=== PATIENT | female | born 1950 | race Caucasian/White ===

== ENCOUNTER 2023-05-23 01:45 | Emergency (ER) | payer MEDICARE, OTHER, SELFPAY ==
[2023-05-23 01:52] VITALS: BP 159/80
[2023-05-23 02:33] LABS: % Basophils 0.7 % (0-2); % Eosinophils 1.4 % (0-6); % Immature Granulocytes 0.3 % (0-0.5); % Lymphocytes 24.5 % (20.5-51.1); % Monocytes 10.4 % (1.7-9.3); % Neutrophils 62.7 % (42.2-75.2); Absolute Basophils 0.1 10^3/uL (0-0.2); Absolute Eosinophils 0.2 10^3/uL (0-0.7); Absolute Lymphocytes 2.9 10^3/uL (1.2-3.4); Absolute Monocytes 1.2 10^3/uL (0.1-0.6); Absolute Neutrophils 7.4 10^3/uL (1.4-6.5); Hematocrit 32.3 % (37.0-47.0); Hemoglobin 10.6 g/dL (12.0-16.0); Mean Corp Hgb Conc. 32.8 g/dL (33.0-37.0); Mean Corpuscular Hgb 23.5 pg (27.0-31.0); Mean Corpuscular Volume 71.5 fL (81.0-99.0); Mean Platelet Volume 8.8 fL (7.4-10.4); Nucleated Red Blood Cells % 0 %; Platelet Count 375 10^3/uL (130-400); Red Blood Cell Count 4.52 10^6/uL (4.20-5.40); Red Cell Dist. Width 17.2 % (11.5-14.5); White Blood Cell Count 11.8 10^3/uL (4.8-10.8)
[2023-05-23 03:02] LABS: ALT (SGPT) 25 U/L (0-35); AST (SGOT) 36 U/L (14-36); Albumin 4.1 g/dl (3.5-5.0); Alkaline Phosphatase 96 U/L (38-126); Blood Urea Nitrogen 25 mg/dl (7-17); Calcium 10.1 mg/dl (8.4-10.2); Carbon Dioxide 28 mmol/L (22-30); Chloride 96 mmol/L (98-107); Glucose 97 mg/dl (70-99); Potassium 3.5 mmol/L (3.5-5.1); Sodium 136 mmol/L (135-145); Total Bilirubin 0.5 mg/dl (0.2-1.3); Total Protein 6.8 g/dl (6.3-8.2); eGFR > 60.00
[2023-05-23 03:07] LABS: NT-proBNP 574 pg/ml; Troponin I < 0.012 ng/ml
[2023-05-23 04:54] VITALS: BP 127/68
[2023-05-23 05:00] VITALS: BP 116/62
--- NOTE | 2023-05-23 05:20 | ED.GENMED ---
History of Present Illness
General
Chief Complaint: Heart Rate Problem
Source: patient
Exam Limitations: none
Time Seen by Provider: 05/23/23 05:11
Nursing documentation reviewed up to this point in time: agreed with
Travel History
Have you had any contact with someone who has COVID-19?: No
Do you have any symptoms of coronavirus? Fever > 100 degrees, chills, cough, shortness of breath, sore throat, loss of taste or smell, muscle aches, or headache?: No
History of Present Illness
History of Present Illness:
This a pleasant 73-year-old female that presents with a brief episode of atrial fibrillation that occurred 45 minutes prior to arrival. She states that for about 10 minutes, she had heart rate in the 130s, consistent with atrial fibrillation. She
did have chest discomfort at that time but that has improved. Patient has had paroxysmal atrial fibrillation for years and has been maintained on Xarelto by Dr. White. She has not missed a dose. She states that she has had similar paroxysmal
atrial fibrillation in the past without issue. Denies fever, chills, current chest pain, or shortness of breath. Does report bilateral lower edema, which is being followed by her family doctor. She is also followed by [facility]. She
has a recent history of iron deficiency anemia. She is due to get infusions in about a week's time. Her family doctor stated that if the swelling did not come down she will get lower extremity ultrasounds.
Vital signs are stable. Patient not hypoxic
Nursing note reviewed. I agree with nursing documentation up to this point in time.
Home Meds and allergies reviewed.
NUMBER AND COMPLEXITY OF PROBLEMS ADDRESSED AT THE ENCOUNTER
� Chronic conditions affecting care:
� Acute Exacerbation and/or Progression of Chronic Illness:
� Differential Diagnosis includes:
AMOUNT AND/OR COMPLEXITY OF DATA TO BE REVIEWED AND ANALYZED
I performed an independent evaluation of the following and my interpretation is:
EKG: EKG shows atrial paced rhythm rate of 72 consistent with sinus rhythm. 'Previous EKG dated September 15, 2022, similar morphology.
CT:
X-rays:
Ultrasound:
Laboratory Studies:
Other:
Review of other/old records:
Clinical information was obtained by an independent historian:
Prescriptions/Medications Considered but not given:
Further testing considered but not performed:
RISK OF COMPLICATIONS AND/OR MORBIDITY OR MORTALITY OF PATIENT MANAGEMENT
Social determinants of health affecting care: Good Social Support
Discussion with other providers:
Escalation of care including admission/observation vs risk of discharge considered:
CRITICAL CARE NOTE:
Total Time (exclusive of procedures):
Update:
Past History
Past History
ED Past Medical History: Arrthythmia (Paroxysmal Atrial fibrillation), GERD, HTN, Hypercholesterolemia, NIDDM, Psychiatric (Panic attacks) and Other (Migraine headaches, fibromyalgia, polymyalgia rheumatica)
ED Past Surgical History: Cardiac (Cardiac catheterization May 2013 showing mild luminal irregularities.), , Orthopedic (Carpal tunnel release right hand. Neurostimulator in spine) and Other (Implanted stimulator)
Social History
Tobacco: Non-smoker
Alcohol: None
Drug: Other (THC lotion)
Personal:
Living: with family
Employment: Retired
Family History
Family History: Hypertension and Cancer (Breast cancer)
Phy Exam
General Physical Exam
General Presentation: well appearing and no apparent distress
General Skin: warm and dry
General Habitus: normal
General Mental: alert
General Hydration: appears well hydrated
ENT Exam
ENT Exam: EOMI, pharynx normal, neck supple and normocephalic
Eye Exam
Eye Exam: PERRL, cornea clear and conjunctiva normal
Cardiovascular Exam
Cardiovascular Exam: regular rate/rhythm, no edema, no murmur and normal peripheral pulses
Pulmonary Exam
Pulmonary Exam: lungs clear, no respiratory distress, no rales, no crackles, no rhonchi, no stridor, no wheezing and no cough
Gastrointestinal Exam
Gastrointestinal Exam: normal bowel sounds, non tender, soft, no organomegaly, no pulsatile mass and non distended
Neurological Exam
Neurological Exam: alert, oriented x3, no motor deficits and speech normal
Musculoskeletal Exam
Musculoskeletal Exam: full ROM and no edema
Skin Exam
Skin Exam: normal color, warm/dry, no rash and no petechia
Psychiatric Exam
Psychiatric Exam: normal mood/affect
Course
Orders/Labs/Results
Orders:
Orders
05/23/23 01:59
Electrocardiogram (*1) Urgent
Reason for Study: Other
Other Reason for Exam: Respiratory Distress
EKG- Treatment ONCE
O2 Therapy [RESP] Urgent
Titrate/Wean O2 to maintain O2 sat greater than (%): 93
Special Instructions: TO MAINTAIN CONTINUOUS O2 SATS >/= 93%
05/23/23 02:25
Complete Blood Count/With Diff Urgent
Comprehensive Metabolic Panel Urgent
NT-proBNP Urgent
Troponin I Urgent
05/23/23 05:19
US Legs, Bilateral [US Periph Venous LOWER Ext Jae] Urgent
Comment:
Reason For Exam: jae swelling
Abnormal Lab Results
05/23/23
02:25
WBC 11.8 H 10^3/uL
(4.8-10.8)
Hgb 10.6 L g/dL
(12.0-16.0)
Hct 32.3 L %
(37.0-47.0)
MCV 71.5 L fL
(81.0-99.0)
MCH 23.5 L pg
(27.0-31.0)
MCHC 32.8 L g/dL
(33.0-37.0)
RDW 17.2 H %
(11.5-14.5)
Absolute Neuts (auto) 7.4 H 10^3/uL
(1.4-6.5)
Absolute Monos (auto) 1.2 H 10^3/uL
(0.1-0.6)
Monocytes % 10.4 H %
(1.7-9.3)
Chloride 96 L mmol/L
(98-107)
BUN 25 H mg/dl
(7-17)
05/23/23 02:25
05/23/23 02:25
Vital Signs
Initial and Last Documented VS:
Initial Vital Signs
Temp Pulse Resp BP Pulse Ox
98.1 F 71 16 159/80 100
05/23/23 01:52 05/23/23 01:52 05/23/23 01:52 05/23/23 01:52 05/23/23 01:52
Last Documented Vital Signs
Temp Pulse Resp BP Pulse Ox
98.1 F 60 14 116/62 99
05/23/23 01:52 05/23/23 05:15 05/23/23 05:15 05/23/23 05:00 05/23/23 05:15
*Critical Care Note
Total Time (30-74mins, 75-104mins- exclusive of procedures): Not Applicable
ED Attending Note
-
Portions of this chart may have been created with voice recognition software.� Occasional wrong word or��sound alike� substitutions may have occurred due to the inherent limitations of voice recognition software.
Discharge Plan
Departure
Patient Disposition: Home (Routine Discharge)
Date of Disposition: 05/23/23
Time of Disposition: 05:54
Patient with high blood pressure during this ER visit?: No
Condition: Good
Discharge Problem:
Atrial fibrillation, Leg edema
Instructions: Atrial Fibrillation (DC), Dependent Edema (DC)
Prescriptions:
No Action
paroxetine HCl 30 MG tablet
30 mg PO DAILY
metformin 500 MG tablet
500 mg PO DAILY
atenolol-chlorthalidone [Tenoretic 50] 50 MG/25 MG tablet
0.5 tab PO DAILY
jdajhrwnde-ptvbugcxcpjox-wjvn 1 TAB tablet
1 tab PO Q6HPRN PRN (Reason: MIGRAINES)
duloxetine 60 MG capsule,delayed release(DR/EC)
60 mg PO DAILY
esomeprazole magnesium [Nexium] 40 MG capsule,delayed release(DR/EC)
40 mg PO DAILY
Folbic RF 1 EACH tablet
1 ea PO DAILY
fluticasone propion-salmeterol [Advair Diskus] 1 EACH blister with device
1 puff inhalation BID
Vitamin D3
1 tab PO SA
Rx Instructions:
30 k IU
spironolactone 25 MG tablet
25 mg PO DAILY Qty: 0 0RF
Xarelto 20 MG tablet
20 mg PO QPM Qty: 0 0RF
rosuvastatin 40 mg Tablet
40 mg PO QPM
Pepcid Complete 10-800-165 mg Tablet,Chewable
1 tab PO HS
benzonatate [Tessalon Perles] 100 mg Capsule
100 mg PO PRN PRN (Reason: cough)
fluticasone propion-salmeterol [Advair Diskus] 500-50 mcg/dose Blister With Device
1 inh INHALATION Q12H
Referrals:
Cecil Lerma Jr., DO [Family Provider] -
Activity Restrictions/Additional Instructions:
It was a pleasure meeting you and taking part in your care. We hope for your continued healing and wellness.
Please read discharge instructions in their entirety. However, they are for general education and may not describe your exact diagnosis at discharge. Information on your ER visit and medical conditions were discussed with you along with appropriate
follow up information...
If indicated, please take your medications as instructed and indicated on discharge paperwork.
Please schedule a follow up appointment as directed. Call to schedule an appointment
Please return to the emergency department with ANY change in, persisting, or worsening of symptoms. If any of your symptoms do not improve, or persist, or become more severe within 6-12 hours, please return to the emergency department for further
care.
Please return to the emergency department if you develop a headache, neck pain/stiffness, fever greater than 100.4F, chest pain, shortness of breath, persistent nausea, vomiting, slurred speech, difficulty walking, numbness/tingling, weakness, signs
of infection or any other symptoms that are worrisome to you.
If you have any questions or concerns please do not hesitate to call the Hospital at or E-mail me directly at [email or web address]
Interventions
Interventions:
*Risk Screen - Suicide Last Done: 05/23/23 05:12
*General Assessment Last Done: 05/23/23 05:12
*Neglect/Abuse Screening Last Done: 05/23/23 05:12
ED- Fall Risk Assessment Last Done: 05/23/23 05:12
ED- Cardiac Assessment Last Done: 05/23/23 05:12
ED- Pulmonary Assessment Last Done: 05/23/23 05:12
== END 2023-05-23 06:33 | disposition home or self-care (01) ==
LOC: EMR 01:45
PROVIDERS: EMERGENCY PHYSICIAN Student in an Organized Health Care Education/Training Program; FAMILY PHYSICIAN Family Medicine
DX: I48.0 Paroxysmal atrial fibrillation (principal); R60.0 Localized edema; R07.89 Other chest pain; D50.9 Iron deficiency anemia, unspecified; I10 Essential (primary) hypertension; K21.9 Gastro-esophageal reflux disease without esophagitis; E78.00 Pure hypercholesterolemia, unspecified; E11.9 Type 2 diabetes mellitus without complications; F41.0 Panic disorder [episodic paroxysmal anxiety]; M35.3 Polymyalgia rheumatica; M79.7 Fibromyalgia; Z79.01 Long term (current) use of anticoagulants; Z88.0 Allergy status to penicillin; Z88.2 Allergy status to sulfonamides; Z91.048 Other nonmedicinal substance allergy status
CPT/HCPCS: 99284; 80053; 83880; 84484; 85025; 93005; 93970

== ENCOUNTER 2023-06-01 06:51 | Emergency (ER) | payer MEDICARE, OTHER, SELFPAY ==
[2023-06-01 06:53] VITALS: BP 146/85
--- NOTE | 2023-06-01 07:38 | ED.GENMED ---
History of Present Illness
General
Chief Complaint: Breathing Problem
Source: patient
Exam Limitations: none
Time Seen by Provider: 06/01/23 07:04
Nursing documentation reviewed up to this point in time: agreed with
Travel History
Have you had any contact with someone who has COVID-19?: No
Do you have any symptoms of coronavirus? Fever > 100 degrees, chills, cough, shortness of breath, sore throat, loss of taste or smell, muscle aches, or headache?: Yes
Symptoms:: see triage note
History of Present Illness
History of Present Illness:
73-year-old female with past medical history of asthma, paroxysmal A-fib diabetes presenting to the emergency department today for concerns of ongoing cough over the past 2 weeks treated with doxycycline by the primary care doctor last week has
noticed some wheezing over the past 2 nights. She has been using her nebulizer at home without relief. Denies any recent steroid use for asthma does not use any daily inhalers for this. Denies any specific chest pain nausea vomiting or fevers.
Past History
Past History
ED Past Medical History: Arrthythmia (Paroxysmal Atrial fibrillation), GERD, HTN, Hypercholesterolemia, NIDDM, Psychiatric (Panic attacks) and Other (Migraine headaches, fibromyalgia, polymyalgia rheumatica)
ED Past Surgical History: Cardiac (Cardiac catheterization May 2013 showing mild luminal irregularities.), , Orthopedic (Carpal tunnel release right hand. Neurostimulator in spine) and Other (Implanted stimulator)
Social History
Tobacco: Non-smoker
Alcohol: None
Drug: Other (THC lotion)
Personal:
Living: with family
Employment: Retired
Family History
Family History: Hypertension and Cancer (Breast cancer)
Review of Systems
Review of Systems
Allergies reviewed?: Yes
All Other Systems: ROS reviewed and negative except as documented in HPI and ROS
Phy Exam
Physical Exam
Physical Exam:
GENERAL: Alert , in no apparent distress
EYE: pupils equal and reactive
NECK: Supple, no significant adenopathy.
ENT: o/p clr, mmm.
CARDIAC: Regular rate and rhythm .
LUNGS: Diffuse expiratory wheezing. Speaking full sentences no respiratory distress
NEUROLOGICAL: Alert and oriented, no focal neuro deficits
SKIN: Warm and dry, skin intact.
MUSCULOSKELETAL: No edema, well perfused.
PSYCH: Normal and appropriate interaction.
Scores
Heart Failure Risk
Heart Failure Risk Score: Not Applicable
Course
Orders/Labs/Results
Orders:
Orders
06/01/23 07:26
Dexamethasone Pf [Decadron] 10 mg PO NOW STA
Ipratropium/Albuterol Sulfate [Duoneb] 3 ml INHALATION R NOW ONE
06/01/23 07:27
Electrocardiogram (*1) Stat
Reason for Study: Other
Other Reason for Exam: pneumonia
EKG- Treatment ONCE
CR Chest - 2 Views Urgent
Comment:
Reason For Exam: cough
06/01/23 07:50
Basic Metabolic Panel Urgent
Complete Blood Count/With Diff Urgent
Abnormal Lab Results
06/01/23
07:50
Hgb 10.2 L g/dL
(12.0-16.0)
Hct 31.8 L %
(37.0-47.0)
MCV 72.9 L fL
(81.0-99.0)
MCH 23.4 L pg
(27.0-31.0)
MCHC 32.1 L g/dL
(33.0-37.0)
RDW 17.4 H %
(11.5-14.5)
Abs Immat Gran (auto) 0.1 H 10^3/uL
(0-0.05)
Absolute Neuts (auto) 8.1 H 10^3/uL
(1.4-6.5)
Absolute Monos (auto) 0.7 H 10^3/uL
(0.1-0.6)
Neutrophils % 75.3 H %
(42.2-75.2)
Lymphocytes % 17.3 L %
(20.5-51.1)
Potassium 3.4 L mmol/L
(3.5-5.1)
BUN 36 H mg/dl
(7-17)
Glucose 124 H mg/dl
(70-99)
06/01/23 07:50
06/01/23 07:50
Vital Signs
Initial and Last Documented VS:
Initial Vital Signs
Temp Pulse Resp BP Pulse Ox
97.8 F 73 20 146/85 99
06/01/23 06:53 06/01/23 06:53 06/01/23 06:53 06/01/23 06:53 06/01/23 06:53
Last Documented Vital Signs
Temp Pulse Resp BP Pulse Ox
97.8 F 66 16 130/68 100
06/01/23 06:53 06/01/23 08:00 06/01/23 08:00 06/01/23 09:45 06/01/23 09:45
MDM/Problems Addressed
MDM/Problems Addressed:
73-year-old female presenting to the emergency department today with concerns of coughing over the past 2 weeks and development of wheezing over the past 2 days. Has been taking a home nebulizer without relief. Was treated with an antibiotic last
week for 'bronchitis'. Upon arrival here vital signs are normal. Patient in no distress speaking full sentences. There was diffuse expiratory wheezing but otherwise good air movement. Patient was given steroid as well as nebulizer with plans for
reassessment. Patient with significant improvement after steroid and nebulizer treatment. Able to ambulate with 94% or above pulse ox stable for outpatient management return precautions given. Remainder of ER workup without emergent findings.
*Critical Care Note
Total Time (30-74mins, 75-104mins- exclusive of procedures): Not Applicable
ED Attending Note
-
Portions of this chart may have been created with voice recognition software.� Occasional wrong word or��sound alike� substitutions may have occurred due to the inherent limitations of voice recognition software.
Discharge Plan
Departure
Patient Disposition: Home (Routine Discharge)
Date of Disposition: 06/01/23
Time of Disposition: 10:48
Patient with high blood pressure during this ER visit?: No
Condition: Good
Covid-19: Not Applicable
Discharge Problem:
Asthma exacerbation
Instructions: Asthma, Adult (DC)
Prescriptions:
New
prednisone 20 mg tablet
40 mg PO DAILY 4 Days Qty: 8 0RF
No Action
paroxetine HCl 30 MG tablet
30 mg PO DAILY
metformin 500 MG tablet
500 mg PO DAILY
atenolol-chlorthalidone [Tenoretic 50] 50 MG/25 MG tablet
0.5 tab PO DAILY
kixnlqfiqk-ekgguxazenemu-fnjq 1 TAB tablet
1 tab PO Q6HPRN PRN (Reason: MIGRAINES)
duloxetine 60 MG capsule,delayed release(DR/EC)
60 mg PO DAILY
esomeprazole magnesium [Nexium] 40 MG capsule,delayed release(DR/EC)
40 mg PO DAILY
Folbic RF 1 EACH tablet
1 ea PO DAILY
fluticasone propion-salmeterol [Advair Diskus] 1 EACH blister with device
1 puff inhalation BID
Vitamin D3
1 tab PO SA
Rx Instructions:
30 k IU
spironolactone 25 MG tablet
25 mg PO DAILY Qty: 0 0RF
Xarelto 20 MG tablet
20 mg PO QPM Qty: 0 0RF
rosuvastatin 40 mg Tablet
40 mg PO QPM
Pepcid Complete 10-800-165 mg Tablet,Chewable
1 tab PO HS
benzonatate [Tessalon Perles] 100 mg Capsule
100 mg PO PRN PRN (Reason: cough)
fluticasone propion-salmeterol [Advair Diskus] 500-50 mcg/dose Blister With Device
1 inh INHALATION Q12H
Referrals:
Cecil Lerma Jr., DO [Family Provider] -
Activity Restrictions/Additional Instructions:
You came the emergency department today with concerns of shortness of breath. You are found to have any asthma exacerbation. Please take prednisone 40 mg once daily for the next 4 days and follow-up closely with your primary care doctor. Please
use your nebulizer or inhaler as needed over the next few days as symptoms are hopefully improving. Return to the emergency department for any worsening, new or concerning symptoms.
Interventions
Interventions:
*Risk Screen - Suicide Last Done: 06/01/23 07:02
*General Assessment Last Done: 06/01/23 07:00
*Neglect/Abuse Screening Last Done: 06/01/23 07:02
ED- Fall Risk Assessment Last Done: 06/01/23 07:59
*ED COVID-19 Vaccine History Last Done: 06/01/23 07:00
ED- Cardiac Assessment Last Done: 06/01/23 07:50
ED- Pulmonary Assessment Last Done: 06/01/23 07:50
[2023-06-01 07:43] VITALS: BMI 37.5
[2023-06-01] MEDS: DECADRON 10 MG PO (07:52)
[2023-06-01] MEDS: DUONEB 3 ML INHALATION (07:52)
[2023-06-01 07:57] VITALS: BP 131/74
[2023-06-01 08:00] VITALS: BP 131/69
[2023-06-01 08:11] LABS: % Basophils 0.5 % (0-2); % Eosinophils 0.2 % (0-6); % Immature Granulocytes 0.5 % (0-0.5); % Lymphocytes 17.3 % (20.5-51.1); % Monocytes 6.2 % (1.7-9.3); % Neutrophils 75.3 % (42.2-75.2); Absolute Basophils 0.1 10^3/uL (0-0.2); Absolute Immature Granulocytes 0.1 10^3/uL (0-0.05); Absolute Lymphocytes 1.9 10^3/uL (1.2-3.4); Absolute Monocytes 0.7 10^3/uL (0.1-0.6); Absolute Neutrophils 8.1 10^3/uL (1.4-6.5); Hematocrit 31.8 % (37.0-47.0); Hemoglobin 10.2 g/dL (12.0-16.0); Mean Corp Hgb Conc. 32.1 g/dL (33.0-37.0); Mean Corpuscular Hgb 23.4 pg (27.0-31.0); Mean Corpuscular Volume 72.9 fL (81.0-99.0); Mean Platelet Volume 8.8 fL (7.4-10.4); Nucleated Red Blood Cells % 0 %; Platelet Count 340 10^3/uL (130-400); Red Blood Cell Count 4.36 10^6/uL (4.20-5.40); Red Cell Dist. Width 17.4 % (11.5-14.5); White Blood Cell Count 10.8 10^3/uL (4.8-10.8)
[2023-06-01 08:24] LABS: Blood Urea Nitrogen 36 mg/dl (7-17); Calcium 9.5 mg/dl (8.4-10.2); Carbon Dioxide 28 mmol/L (22-30); Chloride 100 mmol/L (98-107); Estimated Creatinine Clearance 61 ml/min; Glucose 124 mg/dl (70-99); Potassium 3.4 mmol/L (3.5-5.1); Sodium 137 mmol/L (135-145); eGFR > 60.00
[2023-06-01 09:45] VITALS: BP 130/68
== END 2023-06-01 11:12 | disposition home or self-care (01) ==
LOC: EMR 06:51
PROVIDERS: Physician Assistant; EMERGENCY PHYSICIAN Emergency Medicine; FAMILY PHYSICIAN Family Medicine
DX: J45.901 Unspecified asthma with (acute) exacerbation (principal); I48.0 Paroxysmal atrial fibrillation; E11.9 Type 2 diabetes mellitus without complications; I10 Essential (primary) hypertension; E78.00 Pure hypercholesterolemia, unspecified; K21.9 Gastro-esophageal reflux disease without esophagitis; M35.3 Polymyalgia rheumatica; M79.7 Fibromyalgia; Z80.3 Family history of malignant neoplasm of breast; Z82.49 Family history of ischemic heart disease and other diseases of the circulatory system
CPT/HCPCS: 99283; 94640; 71046; 80048; 85025; 93005

== ENCOUNTER → 2023-06-07 11:03 | Outpatient (REF) | payer MEDICARE, OTHER, SELFPAY | LOC: RAD 11:03 | PROVIDERS: ATTENDING PHYSICIAN Nurse Practitioner Adult Health; FAMILY PHYSICIAN Family Medicine | DX: R05.1 Acute cough (principal) | CPT/HCPCS: 71046 ==

== ENCOUNTER 2023-06-12 03:07 | Emergency (ER) | payer MEDICARE, OTHER, SELFPAY ==
[2023-06-12 03:12] VITALS: BP 142/85
[2023-06-12 04:00] VITALS: BP 124/66
[2023-06-12 05:00] VITALS: BP 123/68
[2023-06-12 05:34] LABS: COVID-19 Antigen Negative (Negative)
--- NOTE | 2023-06-12 05:48 | ED.GENMED ---
History of Present Illness
General
Chief Complaint: Throat Problem
Source: patient and previous hospital records (ED visit June 01 for asthma exacerbation as well as ED visit May 23 for A-fib with spontaneous conversion.)
Exam Limitations: none
Time Seen by Provider: 06/12/23 04:42
Nursing documentation reviewed up to this point in time: agreed with
Travel History
Have you had any contact with someone who has COVID-19?: No
Do you have any symptoms of coronavirus? Fever > 100 degrees, chills, cough, shortness of breath, sore throat, loss of taste or smell, muscle aches, or headache?: No
History of Present Illness
History of Present Illness:
This is a 73-year-old woman who has history of paroxysmal atrial fibrillation chronically maintained on Xarelto, history of asthma with recent exacerbation that began mid April, initially treated with a course of doxycycline and then 2 rounds of
oral steroids which she is currently completing. She notes complete resolution of cough and asthma symptoms over the past week.
She also has history of iron deficiency anemia and had an IV iron infusion [facility].
Yesterday afternoon she developed mild irritation posterior throat as well as mild muffling of her ears and felt that she may be 'coming down with a cold'
Symptoms have persisted tonight without cough nor fever, no rhinorrhea. She was concerned for possible adverse reaction to IV iron. She denies itch, denies rash, no cough nor shortness of breath. She had no difficulty swallowing. Appetite has
been good. No nausea nor vomiting, no diarrhea or constipation.
Past History
Past History
ED Past Medical History: Arrthythmia (Paroxysmal Atrial fibrillation), GERD, HTN, Hypercholesterolemia, NIDDM, Psychiatric (Panic attacks) and Other (Migraine headaches, fibromyalgia, polymyalgia rheumatica; allergic rhinitis)
ED Past Surgical History: Cardiac (Cardiac catheterization May 2013 showing mild luminal irregularities.), , Orthopedic (Carpal tunnel release right hand. Neurostimulator in spine) and Other (Implanted stimulator)
Social History
Tobacco: Non-smoker
Alcohol: None
Drug: Other (THC lotion)
Personal:
Living: with family
Employment: Retired
Family History
Family History: Hypertension and Cancer (Breast cancer)
Phy Exam
Physical Exam
Physical Exam:
GENERAL: 73-year-old woman appears her stated age, awake and alert, pleasant, appears in no acute distress. Speech is clear. Respirations are easy and nonlabored.
EYE: anicteric
NECK: Supple, nontender, no meningismus, no significant adenopathy. No JVD.
ENT: posterior pharynx is without injection or edema nor exudate, scant clear postnasal drip is noted, oral mucosa is moist. Tongue is midline without edema. TM clear b/l, nares have mildly boggy pale blue turbinates.
CARDIAC: Regular rate and rhythm. no murmur.
LUNGS: Clear breath sounds bilaterally, no acute respiratory distress, no wheezes/rales/rhonchi
ABDOMEN: Soft, nondistended, without focal tenderness, normoactive BS.
NEUROLOGICAL: Alert and oriented x3, no focal neuro deficits.
SKIN: Warm and dry, normal color, skin intact. No rash.
MUSCULOSKELETAL: No C/C/E. peripheral pulses are full and equal b/l. No palpable tenderness.
PSYCH: Normal and appropriate interaction.
Course
Orders/Labs/Results
Orders:
Orders
06/12/23 04:54
COVID-19 Antigen Urgent
Source: Nasal Swab
Influenza A+B Rapid Molecular Urgent
ALICIA Source: Nasal Swab
Specimen Description:
Vital Signs
Initial and Last Documented VS:
Initial Vital Signs
Temp Pulse Resp BP Pulse Ox
98.5 F 66 20 142/85 100
06/12/23 03:12 06/12/23 03:12 06/12/23 03:12 06/12/23 03:12 06/12/23 03:12
Last Documented Vital Signs
Temp Pulse Resp BP Pulse Ox
98.5 F 58 20 124/66 100
06/12/23 03:12 06/12/23 05:02 06/12/23 03:12 06/12/23 04:00 06/12/23 03:12
MDM/Problems Addressed
Differential Diagnosis Includes:
Patient presents with mild acute pharyngitis since yesterday afternoon.
Exam remarkable for mild allergic rhinitis with scant clear postnasal drip otherwise posterior pharynx is clear. No evidence of acute allergic reaction and I do not suspect symptoms are adverse reaction to IV iron infusion 3 days ago.
She is afebrile, no adenopathy, lungs are clear to auscultation.
Symptoms began yesterday afternoon, not at nighttime thus acid reflux is much less likely.
With concern for potential early viral URI will check COVID and influenza but my overall suspicion for these entities is low.
Chronic conditions affecting care: Asthma
*Pulse Oximetry
Patient hypoxic: no
*Critical Care Note
Total Time (30-74mins, 75-104mins- exclusive of procedures): Not Applicable
Update Note
Update Note:
COVID and influenza testing are negative as expected.
Patient continues to appear well.
Mild acute pharyngitis I suspect is mild early viral URI versus allergic rhinitis.
Recommend supportive measures, staying well-hydrated, warm salt water gargles, humidifier or vaporizer at nighttime.
For allergic rhinitis recommend she resume her Astelin and Flonase nasal sprays.
Prompt follow-up with PCP for recheck.
ED Attending Note
-
Portions of this chart may have been created with voice recognition software.� Occasional wrong word or��sound alike� substitutions may have occurred due to the inherent limitations of voice recognition software.
Discharge Plan
Departure
Patient Disposition: Home (Routine Discharge)
Date of Disposition: 06/12/23
Time of Disposition: 05:48
Patient with high blood pressure during this ER visit?: No
Condition: Good
Discharge Problem:
Pharyngitis
Instructions: Sore Throat, Adult (DC)
Prescriptions:
No Action
paroxetine HCl 30 MG tablet
30 mg PO DAILY
metformin 500 MG tablet
500 mg PO DAILY
atenolol-chlorthalidone [Tenoretic 50] 50 MG/25 MG tablet
0.5 tab PO DAILY
ogabefgubk-eubqrqfjxjaop-uksb 1 TAB tablet
1 tab PO Q6HPRN PRN (Reason: MIGRAINES)
duloxetine 60 MG capsule,delayed release(DR/EC)
60 mg PO DAILY
esomeprazole magnesium [Nexium] 40 MG capsule,delayed release(DR/EC)
40 mg PO DAILY
Folbic RF 1 EACH tablet
1 ea PO DAILY
fluticasone propion-salmeterol [Advair Diskus] 1 EACH blister with device
1 puff inhalation BID
Vitamin D3
1 tab PO SA
Rx Instructions:
30 k IU
spironolactone 25 MG tablet
25 mg PO DAILY Qty: 0 0RF
Xarelto 20 MG tablet
20 mg PO QPM Qty: 0 0RF
rosuvastatin 40 mg Tablet
40 mg PO QPM
Pepcid Complete 10-800-165 mg Tablet,Chewable
1 tab PO HS
benzonatate [Tessalon Perles] 100 mg Capsule
100 mg PO PRN PRN (Reason: cough)
fluticasone propion-salmeterol [Advair Diskus] 500-50 mcg/dose Blister With Device
1 inh INHALATION Q12H
prednisone 20 mg tablet
40 mg PO DAILY 4 Days Qty: 8 0RF
Referrals:
Cecil Lerma Jr., DO [Family Provider] - Call in 1-3 days for appt
Interventions
Interventions:
*Risk Screen - Suicide Last Done: 06/12/23 03:12
*General Assessment Last Done: 06/12/23 03:12
*Neglect/Abuse Screening Last Done: 06/12/23 03:12
ED- Fall Risk Assessment Last Done: 06/12/23 03:33
*ED COVID-19 Vaccine History Last Done: 06/12/23 03:12
ED-EENT Assessment Last Done: 06/12/23 03:33
ED- Pulmonary Assessment Last Done: 06/12/23 03:33
== END 2023-06-12 05:57 | disposition home or self-care (01) ==
LOC: EMR 03:07
PROVIDERS: EMERGENCY PHYSICIAN Emergency Medicine; FAMILY PHYSICIAN Family Medicine
DX: J02.9 Acute pharyngitis, unspecified (principal); I48.0 Paroxysmal atrial fibrillation
CPT/HCPCS: 99283; 87502; 87811

== ENCOUNTER 2023-06-24 06:10 | Day surgery (SDC) | payer MEDICARE, OTHER, SELFPAY ==
[2023-06-24 08:16] VITALS: BMI 36.8
[2023-06-24 08:17] VITALS: BMI 36.8
[2023-06-24 08:32] VITALS: BP 150/80
[2023-06-24 08:39] LABS: Glucose - Point of Care 93 mg/dl (70-99)
--- NOTE | 2023-06-24 08:50 | PTCARENOTE ---
Patient states that she was supposed to have an upper endoscopy done as well as a colonoscopy. Patient states that he Doctor's office has been communicating with Dr. Aguilar's office to coordinate this. Notified [place] the GI RN to have her notify
Jeff before he speaks with patient at the bedside. Will monitor patient.
--- NOTE | 2023-06-24 09:25 | PTCARENOTE ---
Patient incontinent of a small amount of stool at 0915. Patient cleaned up and ambulated to the bathroom. Will monitor patient.
[2023-06-24 11:05] VITALS: BP 124/59
[2023-06-24 11:19] LABS: Glucose - Point of Care 91 mg/dl (70-99)
[2023-06-24 11:20] VITALS: BP 131/61
[2023-06-24 11:32] VITALS: BP 119/52
== END 2023-06-24 11:50 | disposition home or self-care (01) ==
LOC: SDS 06:10
PROVIDERS: ATTENDING PHYSICIAN Internal Medicine Gastroenterology
DX: Z12.11 Encounter for screening for malignant neoplasm of colon (principal); K63.89 Other specified diseases of intestine; K64.0 First degree hemorrhoids; K31.7 Polyp of stomach and duodenum; D50.9 Iron deficiency anemia, unspecified; Z86.010 Personal history of colon polyps; Z98.890 Other specified postprocedural states; Z09 Encounter for follow-up examination after completed treatment for conditions other than malignant neoplasm
CPT/HCPCS: 45385; 45380; 43235; 88305; 82962

== ENCOUNTER 2023-06-25 03:16 | Emergency (ER) | payer MEDICARE, OTHER, SELFPAY ==
[2023-06-25 03:17] VITALS: BP 122/74
[2023-06-25 03:37] VITALS: BP 114/58
[2023-06-25 04:05] LABS: % Basophils 0.7 % (0-2); % Eosinophils 2.1 % (0-6); % Immature Granulocytes 0.2 % (0-0.5); % Lymphocytes 29.2 % (20.5-51.1); % Monocytes 11.3 % (1.7-9.3); % Neutrophils 56.5 % (42.2-75.2); Absolute Basophils 0.1 10^3/uL (0-0.2); Absolute Eosinophils 0.2 10^3/uL (0-0.7); Absolute Lymphocytes 2.4 10^3/uL (1.2-3.4); Absolute Monocytes 0.9 10^3/uL (0.1-0.6); Absolute Neutrophils 4.6 10^3/uL (1.4-6.5); Hematocrit 35.9 % (37.0-47.0); Hemoglobin 11.9 g/dL (12.0-16.0); Mean Corp Hgb Conc. 33.1 g/dL (33.0-37.0); Mean Corpuscular Hgb 25.7 pg (27.0-31.0); Mean Corpuscular Volume 77.5 fL (81.0-99.0); Nucleated Red Blood Cells % 0 %; Platelet Count 236 10^3/uL (130-400); Red Blood Cell Count 4.63 10^6/uL (4.20-5.40); Red Cell Dist. Width 24.8 % (11.5-14.5); White Blood Cell Count 8.1 10^3/uL (4.8-10.8)
[2023-06-25 04:18] LABS: Albumin 3.7 g/dl (3.5-5.0); Carbon Dioxide 23 mmol/L (22-30)
[2023-06-25 04:22] VITALS: BP 99/55
[2023-06-25 04:27] LABS: ALT (SGPT) 28 U/L (0-35); AST (SGOT) 41 U/L (14-36); Alkaline Phosphatase 99 U/L (38-126); Blood Urea Nitrogen 15 mg/dl (7-17); Calcium 9.5 mg/dl (8.4-10.2); Chloride 103 mmol/L (98-107); Glucose 102 mg/dl (70-99); Potassium 3.1 mmol/L (3.5-5.1); Sodium 134 mmol/L (135-145); Total Bilirubin 0.5 mg/dl (0.2-1.3); Total Protein 6.6 g/dl (6.3-8.2); eGFR > 60.00
[2023-06-25 04:29] LABS: NT-proBNP 443 pg/ml; Troponin I < 0.012 ng/ml
[2023-06-25 04:49] LABS: TSH Reflex To Free T4 1.92 uIU/ml (0.47-4.68)
[2023-06-25 05:00] VITALS: BP 107/59
--- NOTE | 2023-06-25 05:05 | ED.GENMED ---
History of Present Illness
General
Chief Complaint: Heart Rate Problem
Source: patient
Time Seen by Provider: 06/25/23 03:50
Nursing documentation reviewed up to this point in time: agreed with
Travel History
Have you had any contact with someone who has COVID-19?: No
Do you have any symptoms of coronavirus? Fever > 100 degrees, chills, cough, shortness of breath, sore throat, loss of taste or smell, muscle aches, or headache?: No
History of Present Illness
History of Present Illness:
Pleasant 73-year-old female who presents with palpitations. She states that palpitations began this afternoon. Patient has a history of pulmonary emboli and is on a NOAC for anticoagulation. She had an upper endoscopy and colonoscopy today and
had to come off the NOAC for the duration of the surgery. She does state that the procedures went well today. Patient denies fever, chills, nausea and vomiting. Patient concerned that she is in atrial fibrillation. She states that she has many
of the same symptoms when she is in atrial fibrillation. Patient reports no other complaints at this time..
Past History
Past History
ED Past Medical History: Arrthythmia (Paroxysmal Atrial fibrillation), GERD, HTN, Hypercholesterolemia, NIDDM, Psychiatric (Panic attacks) and Other (Migraine headaches, fibromyalgia, polymyalgia rheumatica; allergic rhinitis)
ED Past Surgical History: Cardiac (Cardiac catheterization May 2013 showing mild luminal irregularities.), , Orthopedic (Carpal tunnel release right hand. Neurostimulator in spine) and Other (Implanted stimulator)
Social History
Tobacco: Non-smoker
Alcohol: None
Drug: Other (THC lotion)
Personal:
Living: with family
Employment: Retired
Family History
Family History: Hypertension and Cancer (Breast cancer)
Review of Systems
Review of Systems
Allergies reviewed?: Yes
All Other Systems: ROS reviewed and negative except as documented in HPI and ROS
Constitutional: Reports no symptoms
EENT: Reports no symptoms
Respiratory: Reports no symptoms
Cardiac: Reports chest pain and palpitations
ABD/GI: Reports no symptoms
: Reports no symptoms
Musculoskeletal: Reports no symptoms
Skin: Reports no symptoms
Neurological: Reports no symptoms
Endocrine: Reports no symptoms
Hematologic/Lymphatic: Reports no symptoms
Psychiatric: Reports anxiety
Phy Exam
General Physical Exam
General Presentation: well appearing and no apparent distress
General Skin: warm and dry
General Habitus: normal
General Mental: alert
General Hydration: appears well hydrated
ENT Exam
ENT Exam: EOMI, pharynx normal, neck supple and normocephalic
Eye Exam
Eye Exam: PERRL, cornea clear and conjunctiva normal
Cardiovascular Exam
Cardiovascular Exam: regular rate/rhythm, no edema, no murmur and normal peripheral pulses
Pulmonary Exam
Pulmonary Exam: lungs clear, no respiratory distress, no rales, no crackles, no rhonchi, no stridor, no wheezing and no cough
Gastrointestinal Exam
Gastrointestinal Exam: normal bowel sounds, non tender, soft, no organomegaly, no pulsatile mass and non distended
Neurological Exam
Neurological Exam: alert, oriented x3, no motor deficits and speech normal
Musculoskeletal Exam
Musculoskeletal Exam: full ROM and no edema
Skin Exam
Skin Exam: normal color, warm/dry, no rash and no petechia
Psychiatric Exam
Psychiatric Exam: normal mood/affect
Course
Orders/Labs/Results
Orders:
Orders
06/25/23 03:23
Electrocardiogram (*1) Urgent
Reason for Study: Atrial Fibrillation
EKG- Treatment ONCE
06/25/23 03:58
Complete Blood Count/With Diff Urgent
Comprehensive Metabolic Panel Urgent
NT-proBNP Urgent
TSH Reflex To Free T4 Urgent
Troponin I Urgent
06/25/23 04:46
DDimer [D-Dimer] Urgent
Abnormal Lab Results
06/25/23
03:58
Hgb 11.9 L g/dL
(12.0-16.0)
Hct 35.9 L %
(37.0-47.0)
MCV 77.5 L fL
(81.0-99.0)
MCH 25.7 L pg
(27.0-31.0)
RDW 24.8 H %
(11.5-14.5)
Absolute Monos (auto) 0.9 H 10^3/uL
(0.1-0.6)
Monocytes % 11.3 H %
(1.7-9.3)
Sodium 134 L mmol/L
(135-145)
Potassium 3.1 L mmol/L
(3.5-5.1)
Glucose 102 H mg/dl
(70-99)
AST 41 H U/L
(14-36)
06/25/23 03:58
06/25/23 03:58
Vital Signs
Initial and Last Documented VS:
Initial Vital Signs
Temp Pulse Resp BP Pulse Ox
98.1 F 67 18 122/74 99
06/25/23 03:17 06/25/23 03:17 06/25/23 03:17 06/25/23 03:17 06/25/23 03:17
Last Documented Vital Signs
Temp Pulse Resp BP Pulse Ox
98.1 F 58 19 107/59 99
06/25/23 03:17 06/25/23 05:30 06/25/23 05:30 06/25/23 05:00 06/25/23 05:30
*Critical Care Note
Total Time (30-74mins, 75-104mins- exclusive of procedures): Not Applicable
Update Note
Update Note:
EKG shows normal sinus rhythm rate of 63 with normal intervals, normal axis. No evidence of acute ischemia present.
ED Attending Note
-
Portions of this chart may have been created with voice recognition software.� Occasional wrong word or��sound alike� substitutions may have occurred due to the inherent limitations of voice recognition software.
Discharge Plan
Departure
Patient Disposition: Home (Routine Discharge)
Date of Disposition: 06/25/23
Time of Disposition: 05:45
Patient with high blood pressure during this ER visit?: No
Condition: Good
Discharge Problem:
Palpitations
Instructions: Palpitations (DC)
Prescriptions:
No Action
paroxetine HCl 30 MG tablet
30 mg PO DAILY
metformin 500 MG tablet
500 mg PO DAILY
atenolol-chlorthalidone [Tenoretic 50] 50 MG/25 MG tablet
0.5 tab PO DAILY
unjaxjuxdo-aphakkbwgbwfv-xftz 1 TAB tablet
1 tab PO Q6HPRN PRN (Reason: MIGRAINES)
duloxetine 60 MG capsule,delayed release(DR/EC)
60 mg PO DAILY
esomeprazole magnesium [Nexium] 40 MG capsule,delayed release(DR/EC)
40 mg PO DAILY
Folbic RF 1 EACH tablet
1 ea PO DAILY
fluticasone propion-salmeterol [Advair Diskus] 1 EACH blister with device
1 puff inhalation BID
Vitamin D3
1 tab PO SA
Rx Instructions:
30 k IU
spironolactone 25 MG tablet
25 mg PO DAILY Qty: 0 0RF
Xarelto 20 MG tablet
20 mg PO QPM Qty: 0 0RF
rosuvastatin 40 mg Tablet
40 mg PO QPM
Pepcid Complete 10-800-165 mg Tablet,Chewable
1 tab PO HS
benzonatate [Tessalon Perles] 100 mg Capsule
100 mg PO PRN PRN (Reason: cough)
fluticasone propion-salmeterol [Advair Diskus] 500-50 mcg/dose Blister With Device
1 inh INHALATION Q12H
Rx Instructions:
nebulizer
prednisone 20 mg tablet
40 mg PO DAILY 4 Days Qty: 8 0RF
Referrals:
Cecil Lerma Jr., DO [Family Provider] -
Activity Restrictions/Additional Instructions:
It was a pleasure meeting you and taking part in your care. We hope for your continued healing and wellness.
Please read discharge instructions in their entirety. However, they are for general education and may not describe your exact diagnosis at discharge. Information on your ER visit and medical conditions were discussed with you along with appropriate
follow up information...
If indicated, please take your medications as instructed and indicated on discharge paperwork.
Please schedule a follow up appointment as directed. Call to schedule an appointment
Please return to the emergency department with ANY change in, persisting, or worsening of symptoms. If any of your symptoms do not improve, or persist, or become more severe within 6-12 hours, please return to the emergency department for further
care.
Please return to the emergency department if you develop a headache, neck pain/stiffness, fever greater than 100.4F, chest pain, shortness of breath, persistent nausea, vomiting, slurred speech, difficulty walking, numbness/tingling, weakness, signs
of infection or any other symptoms that are worrisome to you.
If you have any questions or concerns please do not hesitate to call the Hospital at or E-mail me directly at [email or web address]
Interventions
Interventions:
*Risk Screen - Suicide Last Done: 06/25/23 03:17
*General Assessment Last Done: 06/25/23 03:17
*Neglect/Abuse Screening Last Done: 06/25/23 03:17
ED- Fall Risk Assessment Last Done: 06/25/23 03:17
*ED COVID-19 Vaccine History Last Done: 06/25/23 03:17
*Nursing Disposition Last Done: 06/25/23 05:59
ED- Cardiac Assessment Last Done: 06/25/23 04:05
ED- Pulmonary Assessment Last Done: 06/25/23 04:05
Discharge Date and Time
Discharge Date/Time: 06/25/23 06:08
[2023-06-25 05:41] LABS: D-Dimer 0.38 ug/mlFEU (0.00-0.50)
== END 2023-06-25 06:08 | disposition home or self-care (01) ==
LOC: EMR 03:16
PROVIDERS: EMERGENCY PHYSICIAN Student in an Organized Health Care Education/Training Program; FAMILY PHYSICIAN Family Medicine
DX: R00.2 Palpitations (principal); R07.9 Chest pain, unspecified; Z86.711 Personal history of pulmonary embolism; Z79.01 Long term (current) use of anticoagulants
CPT/HCPCS: 99284; 80053; 83880; 84443; 84484; 85025; 85379; 93005

== ENCOUNTER → 2023-07-09 13:09 | Outpatient (REF) | payer MEDICARE, OTHER, SELFPAY | LOC: RAD 13:09 | PROVIDERS: ATTENDING PHYSICIAN Psychiatry & Neurology Neurology; FAMILY PHYSICIAN Family Medicine | DX: M53.3 Sacrococcygeal disorders, not elsewhere classified (principal); M25.551 Pain in right hip | CPT/HCPCS: 72202; 73502 ==

== ENCOUNTER → 2023-08-06 07:46 | Outpatient (REF) | payer MEDICARE, OTHER, SELFPAY | LOC: PAVMRI 07:46 | PROVIDERS: ATTENDING PHYSICIAN Orthopaedic Surgery Orthopaedic Surgery of the Spine; FAMILY PHYSICIAN Family Medicine | DX: M48.062 Spinal stenosis, lumbar region with neurogenic claudication (principal) | CPT/HCPCS: 72158; A9575 ==

== ENCOUNTER → 2023-08-06 13:43 | Outpatient (REF) | payer MEDICARE, OTHER, SELFPAY | LOC: HWRAD 13:43 | PROVIDERS: ATTENDING PHYSICIAN Family Medicine | DX: R60.9 Edema, unspecified (principal); M79.605 Pain in left leg | CPT/HCPCS: 93971 ==

== ENCOUNTER → 2023-08-29 13:01 | Outpatient (REF) | payer MEDICARE, OTHER, SELFPAY | LOC: HWRAD 13:01 | PROVIDERS: ATTENDING PHYSICIAN Obstetrics & Gynecology; FAMILY PHYSICIAN Family Medicine | DX: N39.0 Urinary tract infection, site not specified (principal) | CPT/HCPCS: 76770 ==

== ENCOUNTER → 2023-10-16 10:18 | Outpatient (REF) | payer MEDICARE, OTHER, SELFPAY | LOC: HWRAD 10:18 | PROVIDERS: ATTENDING PHYSICIAN Obstetrics & Gynecology Gynecologic Oncology; FAMILY PHYSICIAN Family Medicine | DX: D50.9 Iron deficiency anemia, unspecified (principal); Z15.02 Genetic susceptibility to malignant neoplasm of ovary | CPT/HCPCS: 74177; Q9967 ==

== ENCOUNTER → 2023-11-06 19:02 | Outpatient (REF) | payer MEDICARE, OTHER, SELFPAY ==
[2023-11-06 19:29] LABS: Urine Albumin Trace (Neg - Trace); Urine Bilirubin Negative (Negative); Urine Character Clear (Clear); Urine Color Yellow; Urine Glucose Negative (Negative); Urine Ketone Negative (Negative); Urine Leukocyte Negative (Negative); Urine Nitrite Negative (Negative); Urine Occult Blood 2+ (Negative); Urine Specific Gravity 1.015 (<1.030); Urine Urobilinogen Negative (Neg - 1+)
[2023-11-06 19:48] LABS: Urine Squamous Cell 26-30 /LPF (Few)
[2023-11-06 19:49] LABS: Urine Red Cell Cast 0-2 /LPF
[2023-11-06 19:50] LABS: Urine Bacteria Few (Negative)
[2023-11-06 19:51] LABS: Urine Mucus Moderate
== END ==
LOC: CLAB 19:02
PROVIDERS: ATTENDING PHYSICIAN Obstetrics & Gynecology
DX: N39.0 Urinary tract infection, site not specified (principal)
CPT/HCPCS: 81003; 81015; 87086

== ENCOUNTER → 2023-11-28 12:09 | Outpatient (REF) | payer MEDICARE, OTHER, SELFPAY | LOC: RAD 12:09 | PROVIDERS: ATTENDING PHYSICIAN Podiatrist Foot & Ankle Surgery; FAMILY PHYSICIAN Family Medicine | DX: E11.51 Type 2 diabetes mellitus with diabetic peripheral angiopathy without gangrene (principal); R20.2 Paresthesia of skin | CPT/HCPCS: 93922; 93925 ==

== ENCOUNTER → 2023-12-17 14:12 | Outpatient (REF) | payer MEDICARE, OTHER, SELFPAY | LOC: RCS 14:12 | PROVIDERS: ATTENDING PHYSICIAN Physician Assistant Medical; FAMILY PHYSICIAN Family Medicine | DX: I34.81 Nonrheumatic mitral (valve) annulus calcification (principal) | CPT/HCPCS: 93306 ==

== ENCOUNTER → 2024-01-01 06:45 | Outpatient (REF) | payer MEDICARE, OTHER, SELFPAY ==
[2024-01-01 08:48] LABS: % Basophils 0.7 % (0-2); % Eosinophils 1.4 % (0-6); % Immature Granulocytes 0.4 % (0-0.5); % Lymphocytes 26.1 % (20.5-51.1); % Monocytes 9.7 % (1.7-9.3); % Neutrophils 61.7 % (42.2-75.2); Absolute Basophils 0.1 10^3/uL (0-0.2); Absolute Eosinophils 0.1 10^3/uL (0-0.7); Absolute Lymphocytes 2.7 10^3/uL (1.2-3.4); Absolute Neutrophils 6.3 10^3/uL (1.4-6.5); Hematocrit 39.1 % (37.0-47.0); Hemoglobin 13.3 g/dL (12.0-16.0); Mean Corpuscular Hgb 30.6 pg (27.0-31.0); Mean Corpuscular Volume 90.1 fL (81.0-99.0); Mean Platelet Volume 9.3 fL (7.4-10.4); Nucleated Red Blood Cells % 0 %; Platelet Count 270 10^3/uL (130-400); Red Blood Cell Count 4.34 10^6/uL (4.20-5.40); Red Cell Dist. Width 13.1 % (11.5-14.5); White Blood Cell Count 10.2 10^3/uL (4.8-10.8)
[2024-01-01 09:17] LABS: ALT (SGPT) 28 U/L (0-35); AST (SGOT) 41 U/L (14-36); Albumin 4.3 g/dl (3.5-5.0); Alkaline Phosphatase 91 U/L (38-126); Blood Urea Nitrogen 24 mg/dl (7-17); Calcium 10.4 mg/dl (8.4-10.2); Carbon Dioxide 28 mmol/L (22-30); Chloride 98 mmol/L (98-107); Glucose 96 mg/dl (70-99); Potassium 3.7 mmol/L (3.5-5.1); Sodium 141 mmol/L (135-145); Total Bilirubin 0.5 mg/dl (0.2-1.3); Total Protein 6.8 g/dl (6.3-8.2); eGFR 53.72
== END ==
LOC: SDSPAT 06:45
PROVIDERS: ATTENDING PHYSICIAN Obstetrics & Gynecology Gynecologic Oncology; FAMILY PHYSICIAN Family Medicine
DX: Z01.818 Encounter for other preprocedural examination (principal)
CPT/HCPCS: 80053; 85025; 86850; 86900; 86901; 93005

== ENCOUNTER 2024-01-02 06:23 | Day surgery (SDC) | payer MEDICARE, OTHER, SELFPAY ==
[2024-01-01 07:23] VITALS: BMI 37.8
[2024-01-02] VITALS (11 sets, daily range): BP systolic 107–132; BP diastolic 52–67; BMI 37.8
[2024-01-02] MEDS: NORMOSOL-R/PLASMALYTE-A 1000 IV (11:25)
[2024-01-02 11:32] LABS: Glucose - Point of Care 101 mg/dl (70-99)
[2024-01-02] MEDS: HEPARIN 5000 UNITS SC (11:35)
[2024-01-02] MEDS: NEURONTIN 300 MG PO (11:35)
[2024-01-02] MEDS: TYLENOL 1000 MG PO (11:35)
[2024-01-02] MEDS: CELEBREX 200 MG PO (11:46)
--- NOTE | 2024-01-02 14:35 | OR.RPT ---
Operative Report
Operative Report
Date of procedure: January 02, 2024\\
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
Postoperative diagnosis: Same plus extensive intra-abdominal adhesion and likely endometriosis
Surgeon: Randolph Casiano MD
Assist: David Salgado PA-C
Procedure:
Exam under anesthesia with dilation and curettage
Robotic assisted total laparoscopic hysterectomy, bilateral salpingo-oophorectomy with pelvic washings, and peritoneal biopsies
Robotic assisted laparoscopic extensive enterolysis
Anesthesia: General Endotracheal intubation
Estimated blood loss: 50 cc
Complication: None
Procedure in detail: This patient is brought to the operating room for planned robotic assisted laparoscopic bilateral salpingo-oophorectomy, with D&C. The patient has had genetic evaluation because of family history of malignancy and PALB2
mutation was identified. She has been counseled both by genetic counselor as well as myself and recommendation was to perform bilateral salpingo-oophorectomy. However of known the patient has had 2 prior C-sections through a midline vertical skin
incision and she has had abnormalities on imaging of the uterus which is required evaluation by D&C and so far no abnormalities were identified. Upon arrival to the operating room she was placed in supine position, general anesthesia was
administered she was intubated without any difficulty she was placed in lithotomy position using yellowfin stirrups prepped on the abdomen perineum and vagina she was draped. Her arms were protected across all joints and placed along the patient's
side. Appropriate IVs were placed. Timeout procedure was carried out she received combination of Levaquin and Flagyl for prophylaxis. I went ahead and placed a Fraga catheter under sterile conditions into the bladder. Next using bivalve speculum
anterior lip of the cervix was identified and grasped with single-tooth tenaculum. The endometrial canal was gradually dilated with dilators, sounded to 9 cm. Sharp curettage of the endometrium was performed and minimal tissue was obtained which
was submitted as [facility] to pathology. A uterine manipulator water tester type with 3 cm CAMELIA ring was placed around the cervix and vaginal cuff occluder was insufflated.
Attention was turned to abdomen, we went ahead and placed a Veress needle just below the left subcostal margin into the peritoneal cavity and insufflation with CO2 gas was performed up to pressure of 15 mmHg. Once this was established 8 mm robotic
port was placed in mid epigastrium approximately 25 cm from symphysis pubis. 8 mm robotic ports were then placed at the right upper quadrant and left upper quadrant, we visualized extensive omental adhesions to the anterior abdominal wall. We
placed 2 additional 8 mm robotic ports in the right and left lateral abdomen. We examined the upper abdomen and note that liver spleen falciform ligament right and left diaphragms are normal. Robotic system was docked with the patient a 28 degree
Trendelenburg. We spent approximately 35 minutes taking down adhesions between the omentum and anterior abdominal wall and these were taken down so that finally we could see the pelvis. We noted that there were adhesions of the sigmoid colon to
the left pelvis which were taken down and also additionally to fundus of the uterus. The ovaries appeared to be generally normal in appearance there was some evidence of hydrosalpinx. There were numerous implants of hemosiderin across the pelvis
suggestive of endometriosis and portions of the tubes and ovaries were actually adherent to the posterior and sides of the uterus secondary to prior endometriosis. Anterior cul-de-sac had extensive adhesions secondary to prior C-sections.
The goal of the surgery was to remove the entire tube and ovary to prevent ovarian cancer, a bilateral salpingo-oophorectomy was inadequate to address this issue because portions of the ovary would have remained on the serosa of the uterus. Please
note that a telephone communication was made to her spouse and these findings were related and a verbal consent was obtained to perform the necessary procedure as it varied from the preoperative written consent. Given the aim of the surgery
decision was made that the best course of action is to perform actually a total laparoscopic hysterectomy. I went ahead and sealed both round ligaments and open retroperitoneal spaces and anterior and posterior leaves of the broad ligament were
dissected open. We identified the ureter in the retroperitoneum a window was created in the avascular space. Infundibulopelvic ligaments containing bilateral ovarian vessels were isolated they were sealed 3 times and divided with vessel sealer.
Tubes and ovaries were detached from the right and left pelvic peritoneum. Extensive lysis of adhesions were performed and the vesicouterine space, we opened the space and took it down below the level of the cervix. Uterine arteries were sealed
and divided paracervical vessels were sealed and divided, uterosacral vessels were sealed and divided circumferential incision was made over the CAMELIA ring and the specimen was detached. Uterus cervix bilateral tubes and ovaries were removed through
the vagina. A portion of the right pelvic peritoneum was excised and submitted to pathology. Some of the epiploica which were adherent to the fundus of the uterus and adnexa were also released in submitted to pathology.
All pedicles were hemostatic, we proceeded to close the vaginal cuff. Vaginal apices were closed with 2-0 Vicryl suture ligature in a [id number] fashion incorporating uterosacral ligaments. We then went ahead and used a V-Loc suture to close
the remainder of the cuff in 2 layers from right to left and back to the right side. We examined all pedicles which were hemostatic, the pelvis was irrigated. There was no other concerning findings and that abdomen. All laparoscopic ports were
removed and pneumoperitoneum was released. The skin incisions were closed with 4-0 Monocryl in a subcuticular fashion. All incisions were injected with Marcaine for a total of 30 cc 0.5%. We then went ahead and remove the Fraga catheter and
irrigated the vagina and there was no bleedings or laceration. Patient was awakened and extubated and returned back to recovery room stable awake and extubated condition. Counts of laps instruments and needle was correct x 2. I was present and
scrubbed for entire procedure as dictated above.
[2024-01-02 14:39] LABS: Glucose - Point of Care 116 mg/dl (70-99)
[2024-01-02] MEDS: DILAUDID 0.5 MG IV ×2 (14:42→15:05)
--- NOTE | 2024-01-02 16:21 | SUR.PHASEI ---
patient required 2 doses of dilaudid in pacu; sleepy, sats decreased after meds- worked with coughing and deep breathing with improvement of sats. Patient advised to sleep in recliner tonight - Head elevated. History of DAVE with surgery UP-3.
comfortable now and no drainage. Taking ice chips po
[2024-01-02 16:36] LABS: Glucose - Point of Care 120 mg/dl (70-99)
[2024-01-02] MEDS: TYLENOL 650 MG PO (17:57)
[2024-01-02] MEDS: LASIX 10 MG IV (19:26)
== END 2024-01-02 19:54 | disposition home or self-care (01) ==
LOC: SDS 06:23
PROVIDERS: ATTENDING PHYSICIAN Obstetrics & Gynecology Gynecologic Oncology
PROC: 0UT24ZZ Resection of Bilateral Ovaries, Percutaneous Endoscopic Approach (ICD-10-PCS; 2024-01-02)
PROC: 0UT74ZZ Resection of Bilateral Fallopian Tubes, Percutaneous Endoscopic Approach (ICD-10-PCS; 2024-01-02)
PROC: 8E0W4CZ Robotic Assisted Procedure of Trunk Region, Percutaneous Endoscopic Approach (ICD-10-PCS; 2024-01-02)
PROC: 0DNW4ZZ Release Peritoneum, Percutaneous Endoscopic Approach (ICD-10-PCS; 2024-01-02)
PROC: 0UT94ZZ Resection of Uterus, Percutaneous Endoscopic Approach (ICD-10-PCS; 2024-01-02)
DX: Z40.02 Encounter for prophylactic removal of ovary(s) (principal); Z15.02 Genetic susceptibility to malignant neoplasm of ovary; K66.0 Peritoneal adhesions (postprocedural) (postinfection); N80.00 Endometriosis of the uterus, unspecified; D25.9 Leiomyoma of uterus, unspecified; N83.8 Other noninflammatory disorders of ovary, fallopian tube and broad ligament; Z80.41 Family history of malignant neoplasm of ovary
CPT/HCPCS: 58571; 49329; 88305; 88307; 82962; 88112; 88341; 88342

== ENCOUNTER → 2024-02-05 07:57 | Outpatient (REF) | payer MEDICARE, OTHER, SELFPAY | LOC: WDC 07:57 | PROVIDERS: ATTENDING PHYSICIAN Family Medicine | DX: Z12.31 Encounter for screening mammogram for malignant neoplasm of breast (principal) | CPT/HCPCS: 77063; 77067 ==

== ENCOUNTER 2024-03-02 16:44 | Inpatient (IN) | payer MEDICARE, OTHER, SELFPAY ==
[2024-03-02] VITALS (11 sets, daily range): BP systolic 101–148; BP diastolic 62–87; BMI 40.5; BMI 40.1
--- NOTE | 2024-03-02 13:45 | ED.GENMED ---
History of Present Illness
General
Chief Complaint: Cardiac Symptoms
Source: patient
Exam Limitations: none
Time Seen by Provider: 03/02/24 13:29
History of Present Illness
History of Present Illness:
73 y/o with h/o PAF on xarelto, former PE,
has been having increased episodes of AF the past few months with a few a week
she is followed by dr. daniels
she was in the office and saw the PA on 02/18 who changed her from atenolol-chlorthalidone to just atenolol and lisinopril in prep for tikosyn to be trialed next friday because of these AF episodes
today:
pt went into afib with RVR rate 140 at home at 12 noon while at rest; she feels chest pressure and jaw pain which she has had before with it
she has not had an episode last this long so she came in
no lightheadedness, syncope, fever, chills, vomiting, diarrhea, leg swelling
Past History
Past History
ED Past Medical History: Arrthythmia (Paroxysmal Atrial fibrillation), GERD, HTN, Hypercholesterolemia, NIDDM, Psychiatric (Panic attacks) and Other (Migraine headaches, fibromyalgia, polymyalgia rheumatica; allergic rhinitis)
ED Past Surgical History: Cardiac (Cardiac catheterization May 2013 showing mild luminal irregularities.), , Orthopedic (Carpal tunnel release right hand. Neurostimulator in spine) and Other (Implanted stimulator)
Social History
Tobacco: Non-smoker
Alcohol: None
Drug: Other (THC lotion)
Personal:
Living: with family
Employment: Retired
Family History
Family History: Hypertension and Cancer (Breast cancer)
Review of Systems
Review of Systems
Allergies reviewed?: Yes
All Other Systems: Not applicable
Phy Exam
Physical Exam
Physical Exam:
GENERAL: Alert , in no apparent distress
EYE: pupils equal and reactive
NECK: Supple
ENT: o/p clr, mmm.
CARDIAC: Irregularly irregular, tachycardic, subtle murmur
LUNGS: Clear breath sounds bilaterally, no acute respiratory distress, no wheezes/rales/rhonchi
ABDOMEN: Soft, without focal tenderness, no r/g, no cvat, normal bowel sounds
NEUROLOGICAL: Alert and oriented, no focal neuro deficits
SKIN: Warm and dry, skin intact.
MUSCULOSKELETAL: No edema, well perfused. neg alfredo's sign
PSYCH: Normal and appropriate interaction.
Course
Orders/Labs/Results
Orders:
Orders
03/02/24 12:50
ECG [Electrocardiogram (*1)] Urgent
Reason for Study: Chest Pain
Other Reason for Exam: chest pain and afib
EKG- Treatment ONCE
03/02/24 13:52
Basic Metabolic Panel Urgent
Complete Blood Count/With Diff Urgent
NT-proBNP Urgent
TSH Reflex To Free T4 Urgent
Troponin I Urgent
03/02/24 14:33
Add On- LAB Urgent
Tests Added?: magnesium
03/02/24 15:28
Magnesium Urgent
Potassium Urgent
03/02/24 15:34
CXR2 [CR Chest - 2 Views ] Urgent
Comment:
Reason For Exam: elevtaed pro-BNP, possible CHF
03/02/24 16:14
Admit/Transfer Patient As Directed
Co-Sign Provider:
Level of Care: Inpatient admission
Assign to:: IVU
Physician / Group: [facility], Dr. Bautista
Diagnosis: Tikosyn loading for symptomatic paroxysmal Afib
Reason for Hospitalization: Tikosyn loading for symptomatic paroxysmal Afib
Expected length of stay greater than two midnights?: Yes
ELOS- Estimated Length of Stay in days: 2
I certify the patient meets the requirements for IP care: Yes
PRN Pain Medication Management As Directed
May give lesser potent ordered pain med per pt: Yes
preference::
Protocol:: Medication orders for pain may be administered in a
manner that supports deferring to patient preference
when the pt is:
-Requesting an ordered lesser potent pain medication.
Least to most potent pain medications are defined as:
acetaminophen < NSAID < tramadol < opioids (morphine,
oxycodone, hydromorphone).
- Requesting a lesser dose of the same medication IF
ORDERED.
- Requesting a less intrusive route of administration
if both routes are prescribed by the provider (PO <
IV).
03/02/24 16:18
Code Status As Directed
Resuscitation Status: Full Code
Abnormal Lab Results
03/02/24
13:52
WBC 12.3 H 10^3/uL
(4.8-10.8)
Absolute Neuts (auto) 7.8 H 10^3/uL
(1.4-6.5)
Absolute Monos (auto) 1.0 H 10^3/uL
(0.1-0.6)
BUN 26 H mg/dl
(7-17)
03/02/24 13:52
03/02/24 15:28
Vital Signs
Initial and Last Documented VS:
Initial Vital Signs
Temp Pulse Resp BP Pulse Ox
98.5 F 140 20 148/87 100
03/02/24 12:50 03/02/24 12:50 03/02/24 12:50 03/02/24 12:50 03/02/24 12:50
Last Documented Vital Signs
Temp Pulse Resp BP Pulse Ox
98.5 F 109 24 101/77 99
03/02/24 12:50 03/02/24 15:45 03/02/24 15:22 03/02/24 15:22 03/02/24 15:45
MDM/Problems Addressed
Differential Diagnosis Includes:
afib with RVR,
MDM/Problems Addressed:
73 y/o F with ho PAF on xarelto
here with afib with RVR starting at rest today
is supposed to have tikosyn next week
in preparation had some med adjustments 10 days ago
having some chest tighntenss and jaw pain with the sypmtoms of tachycardia like she usually has
here she has rate of 140s, stable BP
looks well
has some subtle st depression laterally likely rate related
no signs of CHF
d/w dr. richards from [facility]
offered cardioversoin per his recommendation vs. admission for tikosyn and she prefers admission.
*Critical Care Note
Total Time (30-74mins, 75-104mins- exclusive of procedures): Not Applicable
ED Attending Note
-
Portions of this chart may have been created with voice recognition software.� Occasional wrong word or��sound alike� substitutions may have occurred due to the inherent limitations of voice recognition software.
Discharge Plan
Departure
Patient Disposition: Admit
Date of Disposition: 03/02/24
Time of Disposition: 14:15
Admit to: IVU
Admit to doctor: maurice
Presentation/result/management discussed w/ accepting MD/DO: maurice
Patient with high blood pressure during this ER visit?: No
Condition: Fair
Covid-19: Not Applicable
Discharge Problem:
Atrial fibrillation with rapid ventricular response
Interventions
Interventions:
*Risk Screen - Suicide Last Done: 03/02/24 13:17
*General Assessment Last Done: 03/02/24 13:17
*Neglect/Abuse Screening Last Done: 03/02/24 13:17
ED- Fall Risk Assessment Last Done: 03/02/24 13:19
*ED COVID-19 Vaccine History Last Done: 03/02/24 13:17
ED- Pulmonary Assessment Last Done: 03/02/24 14:19
ED- Cardiac Assessment Last Done: 03/02/24 13:19
[2024-03-02 14:03] LABS: % Basophils 0.6 % (0-2); % Eosinophils 1.5 % (0-6); % Immature Granulocytes 0.3 % (0-0.5); % Lymphocytes 25.9 % (20.5-51.1); % Monocytes 8.1 % (1.7-9.3); % Neutrophils 63.6 % (42.2-75.2); Absolute Basophils 0.1 10^3/uL (0-0.2); Absolute Eosinophils 0.2 10^3/uL (0-0.7); Absolute Lymphocytes 3.2 10^3/uL (1.2-3.4); Absolute Neutrophils 7.8 10^3/uL (1.4-6.5); Hematocrit 39.4 % (37.0-47.0); Hemoglobin 13.6 g/dL (12.0-16.0); Mean Corp Hgb Conc. 34.5 g/dL (33.0-37.0); Mean Platelet Volume 9.5 fL (7.4-10.4); Nucleated Red Blood Cells % 0 %; Platelet Count 252 10^3/uL (130-400); Red Blood Cell Count 4.53 10^6/uL (4.20-5.40); Red Cell Dist. Width 13.6 % (11.5-14.5); White Blood Cell Count 12.3 10^3/uL (4.8-10.8)
[2024-03-02 14:21] LABS: Blood Urea Nitrogen 26 mg/dl (7-17); Calcium 9.8 mg/dl (8.4-10.2); Carbon Dioxide 25 mmol/L (22-30); Chloride 103 mmol/L (98-107); Estimated Creatinine Clearance 70 ml/min; Glucose 97 mg/dl (70-99); Sodium 139 mmol/L (135-145); eGFR > 60.00
[2024-03-02 14:27] LABS: NT-proBNP 1210 pg/ml; Troponin I < 0.012 ng/ml
[2024-03-02 15:01] LABS: TSH Reflex To Free T4 2.82 uIU/ml (0.47-4.68)
--- NOTE | 2024-03-02 15:32 | CON.CAR ---
Addendum entered and electronically signed by Heath Bautista MD 03/02/24 17:24:
Attending addendum: This is a 73 y/o female with a PMH notable for PAF and scheduled for Tikosyn loading. She now presents with recurrent atrial fibrillation and feeling poorly
Physical Exam:
GEN: AAO x 3. No acute distress
HEENT: NC/AT, sclera are anicteric, hearing normal. MMM
LUNGS: Clear to bases bilaterally. No wheezing
CV: Irregularly irreg rate and rhythm. Normal S1/S2. Murmur: None
ABD : Soft, NT, ND, No HSM. Bowel sounds are present.
EXT: No CCE
NEURO: No focal neurologic deficits
RECOMMENDATIONS:
-Tikosyn loading as planned
-Continue oral anticoagulation
-Serial ECG's
-Possible cardioversion later this week
-She has NOT missed any Xarelto
Original Note:
Consultation
Consultation Request
Date/Time Consultation Requested: 03/02/24
Date/Time Consultation Performed: 03/02/24
Performing Provider: H&P for Tikosyn admission for Dr. Bautista
Reason for Consultation: Symptomatic paroxysmal Afib, Tikosyn loading, possible acute HF
Medical History
-
History of Present Illness:
Patient came to [facility] today with Afib in RVR and cardiology has been consulted. Patient has a h/o paroxysmal Afib and was seen in the cardiology office for increased burden of Afib on 02/19/24. Patient was offered direct admission for Tikosyn loading
which is scheduled for 03/08/24, but patient started with rapid Afib at noon today and came to [facility]. Patient says she got her typical symptoms of a squeezing chest pain and B/L caodaism pain. She checked her pulse using her mobile sridhar and found she
was in Afib. Patient came to [facility] because her symptoms lasted for hours and ECG confirmed Afib.
PMH:
Paroxysmal Afib
Chronic Xarelto OAC
HTN
FMR
PMR
Nonobstructive CAD by cath 05/2013
h/o PE
Hyperlipidemia-tolerates Crestor
DM II
Past Medical History
Past Medical History: Other (in HPI)
Past Surgical History: , Gynecological (RODRIGUE-BSO) and Orthopedic
Social History
Tobacco: Non-Smoker
Alcohol: None
Drug: None
Personal:
Living: With Family
Family History
Family History: CAD and Diabetes
Allergies / Home Medications
Allergy/AdvReac Type Severity Reaction Status Date / Time
cefuroxime [From Ceftin] Allergy Mild Hives Verified 03/02/24 13:03
clindamycin Allergy irritates Verified 03/02/24 13:03
esophagus
erythromycin base Allergy stomch Verified 03/02/24 13:03
pain-tolerates
azithromycin
Penicillins Allergy Anaphylaxis, Verified 03/02/24 13:03
throat
closes
pollen extracts Allergy stuffy nose Verified 03/02/24 13:03
Sulfa (Sulfonamide Allergy Hives - Verified 03/02/24 13:03
Antibiotics) Red rash
�Medication �Instructions �Recorded �Confirmed �Type
paroxetine HCl 30 mg tablet 30 mg PO DAILY depression/anxiety 09/23/10 03/02/24 History
duloxetine 60 mg capsule,delayed 60 mg PO DAILY Depression 10/27/14 03/02/24 History
release
metformin 500 mg tablet 500 mg PO DAILY Diabetes 10/27/14 03/02/24 History
esomeprazole magnesium 40 mg 40 mg PO DAILY Gastrointestinal 11/16/20 03/02/24 History
capsule,delayed release (Nexium) issue
rivaroxaban 20 mg tablet (Xarelto) 20 mg PO QPM Blood clot 02/01/21 03/02/24 Rx
prevention/tx ##0
rosuvastatin 40 mg tablet 40 mg PO QPM High Cholesterol 08/20/22 03/02/24 History
benzonatate 100 mg capsule 100 mg PO DAILYPRN PRN cough 02/21/23 03/02/24 History
fluticasone 500 mcg-salmeterol 50 1 inh inhalation R BID 02/21/23 03/02/24 History
mcg/dose blistr powdr for Lung/Breathing Issues
inhalation (Advair Diskus)
ergocalciferol (vitamin D2) 1,250 1,250 mcg PO SA Supplement 09/29/23 03/02/24 History
mcg (50,000 unit) capsule (Vitamin
D2)
famotidine 20 mg tablet (Pepcid) 20 mg PO HSPRN PRN GERD 09/29/23 03/02/24 History
ferrous sulfate 15 mg iron (75 5 ml PO Q48H Supplement 09/29/23 03/02/24 History
mg)/mL oral drops
furosemide 40 mg tablet 40 mg PO DAILYPRN PRN Edema 09/29/23 03/02/24 History
methenamine hippurate 1 gram tablet 1 g PO BID Urinary Issue 09/29/23 03/02/24 History
atenolol 50 mg tablet 50 mg PO DAILY Blood Pressure 03/02/24 03/02/24 History
jzlzcgbzdt-kxziykhazetdk-bobynuwu 1 cap PO Q6HPRN PRN migraine 03/02/24 03/02/24 History
50 mg-300 mg-40 mg capsule
cyanocobalamin 2 mg-levomefolate 1 tab PO DAILY Supplement 03/02/24 03/02/24 History
darinel 1.13 mg-pyridoxine 25 mg
tablet (Folbic RF)
lisinopril 5 mg tablet 5 mg PO DAILY Blood Pressure 03/02/24 03/02/24 History
methylprednisolone 4 mg tablets in 0 mg PO PER PKG DIR 03/02/24 03/02/24 History
a dose pack Anti-Inflammatory
oxycodone-acetaminophen 5 mg-325 1 tab PO [id number] PRN severe pain 03/02/24 03/02/24 History
mg tablet
spironolactone 25 mg tablet 25 mg PO DAILY Fluid retention/BP 03/02/24 03/02/24 History
Review of Systems
-
History Source: Patient
All other systems: Negative unless noted
Physical Exam
Vital Signs
Temp Pulse Resp BP Pulse Ox
98.5 F 97 24 101/77 99
03/02/24 12:50 03/02/24 15:22 03/02/24 15:22 03/02/24 15:22 03/02/24 15:22
GEN: NAD. AAOx3
HEENT: EOMI, MMM
LUNGS: CTA, no wheezes or rales
CV: Afib on tele. Irreg irreg, S1/S2, no murmur
ABD: soft, BS+, NT, ND
EXT: Trace to +1 B/L LE edema. No clubbing, cyanosis or lesions B/L
NEURO: Gross non-focal
SKIN: Warm, dry and pink. No rash
Lab Results
03/02/24 13:52
Troponin I < 0.012 ng/ml 03/02/24 13:52
Nah-H-Qikaiyvfobf Pept 1210 pg/ml 03/02/24 13:52
Impression / Plan
-
PCP: Dr. Lerma
Cardiology: Dr. White
Impression:
Afib with RVR
Paroxysmal Afib
Chronic Xarelto OAC
HTN
FMR
PMR
Nonobstructive CAD by cath 05/2013
h/o PE
Hyperlipidemia-tolerates Crestor
DM II
Echo 12/17/2023: EF 57%, stage I diastolic dysfunction, normal RV size and function, trace MR
Plan:
-Patient came to [facility] today with Afib in RVR and cardiology has been consulted. Patient has a h/o paroxysmal Afib and was seen in the cardiology office for increased burden of Afib on 02/19/24. Patient was offered direct admission for Tikosyn
loading which is scheduled for 03/08/24, but patient started with rapid Afib at noon today and came to [facility]. Patient says she got her typical symptoms of a squeezing chest pain and B/L caodaism pain. She checked her pulse using her mobile sridhar and
found she was in Afib. Patient came to [facility] because her symptoms lasted for hours and ECG confirmed Afib.
-Patient agreeable to direct admission with Tikosyn 500 mcg q 12 hours
-CrCl calculated by me is 101 using actual body weight of 218, Cre 0.8, age 73
-Outpatient dose of chlorthalidone was stopped on 02/19/24.
-Cont atenolol 5 mg daily
-Cont lisinopril 5 mg daily which was just started on 02/19/24 at the same time her chlorthalidone was stopped.
-Follow QTc on ECG while also taking Cymbalta and Paxil
-CV if patient fails to convert with Tikosyn loading
-pro-BNP 1210 and LE edema, but no evidence of rales and no acute changes on CXR.
[2024-03-02 15:52] LABS: Magnesium 1.9 mg/dl (1.6-2.3); Potassium 4.2 mmol/L (3.5-5.1)
--- NOTE | 2024-03-02 16:59 | W.CARD.TIKOS ---
Initiate Tikosyn
-
I verify that the patient has not taken any verapamil (Isoptin/Calan), ketoconazole (Nizoral), cimetidine (Tagamet), trimethoprim (Trimpex), trimethoprim/sulfamethoxazole (Bactrim), megesterol (Megace), prochlorperazine (Compazine),
hydrochlorothiazide (HCTZ), dolutegravir (Tivicay) or any Class I or Class III anti-arrhythmic within the last three days
AND
I verify that the patient has not taken amiodarone within the last THREE months, or that the patient's amiodarone plasma concentration is <0.3 mcg/mL.
Creatinine 0.8 mg/dL (0.6-1.0) 03/02/24 13:52
Estimated Creat Clear 70 ml/min 03/02/24 13:52
CrCl using actual body weight 101
Does patient have a Ventricular Conduction Abnormality: No
I have assessed the baseline QTc interval (using QT for heart rate less than 60 bpm) and deemed the patient is appropriate for Dofetilide therapy. I understand that Tikosyn is contraindicated if the QTc is >440msec (500msec in patients with
ventricular conduction abnormalities).
Baseline QTc (in msec): 483
QTc interval is greater than 440msec without conduction abnormality OR greater than 500msec with a conduction abnormality, but acceptable to proceed per Cardiology attending.
Reason for Administration with Prolonged QTc: Other Atrial Arrhythmia
Ordering Physician: Heath Bautista
[2024-03-02] MEDS: XARELTO 20 MG PO (18:24)
[2024-03-02] MEDS: CRESTOR 40 MG PO (18:24)
--- NOTE | 2024-03-02 18:29 | PTCARENOTE ---
patient arrived from ER, monitor placed, Afib, VSS, oriented to room and surroundings. patient has a spinal cord stimulator, she has her remote but was shut off in ER. patient has medical marijuana cream, will be sent to pharmacy. patient admitted
for Tikosyn load.
[2024-03-02] MEDS: HIPREX 1 GRAM PO (20:17)
[2024-03-02] MEDS: TIKOSYN 500 MCG PO (20:17)
[2024-03-02] MEDS: ADVAIR HFA 230/21 MCG INHALER 2 PUFF INH (20:27)
--- NOTE | 2024-03-03 00:28 | PTCARENOTE ---
At approx 19:24 patient had spontaneously converted to Sinus janelle. Strip printed and placed in chart. 1st dose of Tikosyn administered, EKG obtained 2hr post per protocol. QTc level 428. Patient denies any chest pain or discomfort. VSS. HR in the
50s at rest. Afib and Tikosyn education provided for patient. Call boudreaux within reach.
[2024-03-03 02:57] VITALS: BMI 40.1
[2024-03-03 03:00] VITALS: BP 144/69
[2024-03-03 03:37] LABS: Hematocrit 40.4 % (37.0-47.0); Hemoglobin 13.9 g/dL (12.0-16.0); Mean Corp Hgb Conc. 34.4 g/dL (33.0-37.0); Mean Corpuscular Hgb 31.2 pg (27.0-31.0); Mean Corpuscular Volume 90.8 fL (81.0-99.0); Mean Platelet Volume 9.7 fL (7.4-10.4); Platelet Count 258 10^3/uL (130-400); Red Blood Cell Count 4.45 10^6/uL (4.20-5.40); Red Cell Dist. Width 13.6 % (11.5-14.5); White Blood Cell Count 12.5 10^3/uL (4.8-10.8)
[2024-03-03 03:57] LABS: Blood Urea Nitrogen 24 mg/dl (7-17); Calcium 9.9 mg/dl (8.4-10.2); Carbon Dioxide 25 mmol/L (22-30); Chloride 103 mmol/L (98-107); Estimated Creatinine Clearance 61 ml/min; Glucose 112 mg/dl (70-99); Potassium 4.6 mmol/L (3.5-5.1); Sodium 140 mmol/L (135-145); eGFR > 60.00
[2024-03-03 06:57] VITALS: BP 117/75
[2024-03-03] MEDS: ADVAIR HFA 230/21 MCG INHALER 2 PUFF INH ×2 (07:55→19:18)
[2024-03-03] MEDS: GLUCOPHAGE 500 MG PO (08:25)
[2024-03-03] MEDS: TIKOSYN 500 MCG PO ×2 (08:26→19:24)
[2024-03-03] MEDS: PROTONIX 40 MG PO (08:26)
[2024-03-03] MEDS: ZESTRIL 5 MG PO (08:26)
[2024-03-03] MEDS: HIPREX 1 GRAM PO ×2 (08:26→19:24)
[2024-03-03] MEDS: FOLTX 1 TABLET PO (08:26)
[2024-03-03] MEDS: CYMBALTA DELAYED RELEASE 60 MG PO (08:26)
[2024-03-03] MEDS: ALDACTONE 25 MG PO (08:26)
[2024-03-03] MEDS: FLUSH (NSS) 1 FLUSH IV (08:28)
[2024-03-03] MEDS: PAXIL 30 MG PO (08:38)
[2024-03-03] MEDS: PERCOCET 5/325 1 TABLET PO ×2 (08:43→21:41)
--- NOTE | 2024-03-03 09:20 | CM ---
Addendum entered by Maryanne Hogan 03/03/24 09:40:
Telephone call to [facility] to check on if the have Dofetilide 500 mcg in stock. [facility] has it in stock. Telephone call to [facility] ,([phone]) to check on co-pay. Her co-pay for a thirty day supply would be $7.39 and for a
ninety day supply would be $22.17.
Original Note:
Reviewed chart. Met with Mrs. Shi to review discharge plans. She states prior to admission she resides with her spouse and her 99 year old mother in a two story home with two steps to enter. She states she has a full flight of steps to get to
bedroom/full bathroom. She states she has a stair glide in her home. She states she has a powder room on the first floor. She states prior to admission she was independent with ambulation and adls. She states she does has a stair glide at home.
She states she has a prescription plan with [facility] and uses [facility]. She will need a script for three day supply of Dofetilde to go to [facility] to take home with her. Will check on her co-pay for Dofetilde 500 mcg bid. Medical work-up in
progress. The discharge plan is to return home with her spouse and mother when medically stable.
--- NOTE | 2024-03-03 09:28 | PTCARENOTE ---
The patient is aaox3, vss, 100% on RA. Sinus janelle with PVCs is noted on the monitor. HR is fluctuating between the 40s -50s. Atenolol held this am due to HR. The patient has no complaints of dizziness or lightheadedness. She does compliant of right
lower back/flank pain and rates it a 9/10 on scale. Her spinal cord stimulator has been turned off by remote control to prevent 'disturbances with the heart monitor.' One Percocet given for her pain as ordered.
--- NOTE | 2024-03-03 10:20 | W.PN.CARDCBS ---
Addendum entered and electronically signed by Emily Vázquez MD 03/03/24 10:49:
I saw and examined the patient.
The Acupuncturist's note was reviewed and I agree with the note.
Comment: She is here with atrial fibrillation and converted to sinus rhythm. She seems mildly volume overloaded on exam with lower extremity edema and proBNP elevated at 1200. Exam stable otherwise. She does have neuropathy and asks about CBD/THC
cream that she is supplied by Dr. Valdez for use for neuropathy. She may proceed. We will place order for pharmacy.
Telemetry reviewed. She currently is in sinus rhythm/sinus bradycardia.
Plan at this time:
-Given bradycardia discussed with patient and I have decreased atenolol to 25 mg daily. Now that she is getting loaded with dofetilide we may eventually need to discontinue. She is asymptomatic.
-Continue dofetilide. EKG stable. Follow QT interval which remains stable. Telemetry stable. Follow.
-Given increased volume will give 1 dose of 20 of IV Lasix. Follow electrolytes. Follow exam. She is on as needed dosing as an outpatient.
All questions answered.
Original Note:
Today's Communication / Plan
-
Cont Tikosyn 500 mcg q 12 hours
5th dose of Tikosyn scheduled for tomorrow night
Impression / Plan
-
PCP: Dr. Lerma
Cardiology: Dr. White
Impression:
Afib with RVR
Paroxysmal Afib
Chronic Xarelto OAC
HTN
FMR
PMR
Nonobstructive CAD by cath 05/2013
h/o PE
Hyperlipidemia-tolerates Crestor
DM II
Echo 12/17/2023: EF 57%, stage I diastolic dysfunction, normal RV size and function, trace MR
Plan:
-Patient spontaneously converted to SR overnight. Cardizem gtt stopped.
-QTc stable at 428 ms after 1st dose of Tikosyn 500 mcg on 03/02/24 PM.
-Outpatient dose of chlorthalidone was stopped on 02/19/24.
-Decrease atenolol to 25 mg daily due to sinus bradycardia
-Cont lisinopril 5 mg daily which was just started on 02/19/24 at the same time her chlorthalidone was stopped.
-Follow QTc on ECG while also taking Cymbalta and Paxil
-Patient can use her THC/CBD cream on her feet at night for her peripheral neuropathy, will order via pharmacy
HPI: Patient came to [facility] today with Afib in RVR and cardiology has been consulted. Patient has a h/o paroxysmal Afib and was seen in the cardiology office for increased burden of Afib on 02/19/24. Patient was offered direct admission for Tikosyn
loading which is scheduled for 03/08/24, but patient started with rapid Afib at noon today and came to [facility]. Patient says she got her typical symptoms of a squeezing chest pain and B/L methodist pain. She checked her pulse using her mobile sridhar and
found she was in Afib. Patient came to [facility] because her symptoms lasted for hours and ECG confirmed Afib.
Progress Note - Salesperson Neckties
Subjective
Date of Service: March 03, 2024
No chest pain or palpitations
Objective
Labs:
03/03/24 03:09
03/03/24 03:09
Labs
Hgb 13.9 g/dL (12.0-16.0) 03/03/24 03:09
Hct 40.4 % (37.0-47.0) 03/03/24 03:09
Plt Count 258 10^3/uL (130-400) 03/03/24 03:09
Sodium 140 mmol/L (135-145) 03/03/24 03:09
Potassium 4.6 mmol/L (3.5-5.1) 03/03/24 03:09
BUN 24 mg/dl (7-17) H 03/03/24 03:09
Creatinine 0.9 mg/dL (0.6-1.0) 03/03/24 03:09
Glucose 112 mg/dl (70-99) H 03/03/24 03:09
Troponins
03/02/24
13:52
Troponin I < 0.012
Vital Signs and I&O:
Vital Signs
Temp Pulse Resp BP Pulse Ox
98.0 F 63 18 117/75 96
03/03/24 06:59 03/03/24 07:58 03/03/24 07:58 03/03/24 06:57 03/03/24 07:58
Vital Signs
Temp Pulse Resp BP Pulse Ox
98.0 F 63 18 117/75 96
03/03/24 06:59 03/03/24 07:58 03/03/24 07:58 03/03/24 06:57 03/03/24 07:58
Intake & Output
03/01/24 03/02/24 03/03/24 03/04/24
06:59 06:59 06:59 06:59
Intake Total 240 / 240
Balance 240 / 240
Physical Exam
Physical Exam
GEN: NAD. AAOx3
HEENT: EOMI, MMM
LUNGS: No audible wheeze
CV: SR on tele
ABD: ND
EXT: Trace B/L LE edema.
NEURO: Gross non-focal
SKIN: No rash
--- NOTE | 2024-03-03 11:01 | PTCARENOTE ---
2nd dose 2hr post Qtc 488
[2024-03-03 11:37] VITALS: BP 110/79
[2024-03-03] MEDS: FLUSH (NSS) 2 FLUSH IV (11:41)
[2024-03-03] MEDS: LASIX 20 MG IV (11:41)
[2024-03-03 15:14] VITALS: BP 115/76
[2024-03-03] MEDS: XARELTO 20 MG PO (18:13)
[2024-03-03] MEDS: CRESTOR 40 MG PO (18:13)
[2024-03-03 19:22] VITALS: BP 123/64
--- NOTE | 2024-03-03 19:44 | PHA.MM ---
Medical Marijuana Note
- -
Qualifying condition(s) for medical marijuana use:: Neuropathies
Medical Marijuana Information:
Dispensary: [facility]
Product (s): Restore Lotion (200 MG THC/200 MG CBD)
Dose patient reports taking: ONE APPLICATION
Picture of Product Label (s):
Patient/Caregiver Medical Marijuana Identification Card:
--- NOTE | 2024-03-03 20:02 | PHA.MM ---
Medical Marijuana Note
- -
Qualifying condition(s) for medical marijuana use:: Neuropathies (Pictures attached)
Medical Marijuana Information:
Dispensary: [facility]
Product (s): Restore Lotion 200 mg thc/200 mg CBD
Dose patient reports takin application
Picture of Product Label (s): see below
Patient/Caregiver Medical Marijuana Identification Card:
[2024-03-03] MEDS: [UNRECOGNIZED DRUG - OTHER] 1 UNIT TOPICAL (21:41)
[2024-03-03 22:10] VITALS: BP 117/55
[2024-03-04] VITALS (12 sets, daily range): BP systolic 93–135; BP diastolic 49–93; BMI 39.8
--- NOTE | 2024-03-04 01:12 | PTCARENOTE ---
3rd dose of Tikosyn administered. QTc 455. Tele remains Sinus Martin-NSR, HR in the 50-60's. Call boudreaux within reach.
--- NOTE | 2024-03-04 07:20 | PTCARENOTE ---
The patient woke up and ambulated to the bathroom. The monitor started to alarm showing rapid afib with a HR of 142. When she came back from the bathroom, she stated that she was feeling chest pain in the center of her chest. She describes it as
sharp and tight with palpations. She also states that she feels a little sob. Oxygen place on the patient, ecg showing rapid afib. Christie Arias notified and came to evaluate the patient. Cardizem 10mg IV ordered and given to the patient. Tikosyn dose
given as well. HR dropped to the 90s-low 100s. The patient stated that her chest pain is relieving however she now has a TENORIO and rates it a 7/10 in the back of her head. Tylenol requested, ordered, and given.
[2024-03-04] MEDS: ADVAIR HFA 230/21 MCG INHALER INH (07:30)
[2024-03-04] MEDS: FLUSH (NSS) 2 FLUSH IV (07:35)
[2024-03-04] MEDS: CARDIZEM 10 MG IV (07:35)
[2024-03-04] MEDS: PAXIL 30 MG PO (07:42)
[2024-03-04] MEDS: CYMBALTA DELAYED RELEASE 60 MG PO (07:42)
[2024-03-04] MEDS: HIPREX 1 GRAM PO ×2 (07:42→20:05)
[2024-03-04] MEDS: GLUCOPHAGE 500 MG PO (07:42)
[2024-03-04] MEDS: PROTONIX 40 MG PO (07:43)
[2024-03-04] MEDS: ZESTRIL 5 MG PO (07:43)
[2024-03-04] MEDS: FOLTX 1 TABLET PO (07:43)
[2024-03-04] MEDS: ALDACTONE 25 MG PO (07:43)
[2024-03-04] MEDS: TENORMIN 25 MG PO ×2 (07:43→10:48)
[2024-03-04] MEDS: TIKOSYN 500 MCG PO ×2 (07:45→20:05)
--- NOTE | 2024-03-04 07:51 | W.PN.CARDCBS ---
Addendum entered and electronically signed by Emily Vázquez MD 03/04/24 09:36:
I saw and examined the patient.
The Corporate Librarian's note was reviewed and I agree with the note.
Comment: Patient went back into rapid atrial fibrillation last night with chest pressure which is her usual symptom with atrial fibrillation. Chest pressure improved currently. She did diurese with dose of IV Lasix yesterday. She denies
dizziness. Exam stable with improved lower extremity edema. Heart tacky and irregular. Lungs clear.
-Rate control is fair at this point. Continue dofetilide load. Continue to follow EKGs. QT interval has been stable.
-Continue atenolol which was reduced yesterday because of bradycardia.
-Chest symptoms with atrial fibrillation have improved. Check troponin. EKG with minor nonspecific abnormalities with fast heart rates
-Consider outpatient electrophysiology assessment.
-Volume status improved with dose of IV Lasix yesterday. She takes Lasix as needed as an outpatient. Continue to follow.
All questions answered.
Original Note:
Today's Communication / Plan
-
Check Troponin now
Recheck ECG 2 hours after 4th dose of Tikosyn 500 mcg that was given this AM
Impression / Plan
-
PCP: Dr. Lerma
Cardiology: Dr. White
Impression:
Recurrent rapid Afib and chest pain 03/04/24
Afib with RVR
Paroxysmal Afib
Chronic Xarelto OAC
HTN
FMR
PMR
Nonobstructive CAD by cath 05/2013
h/o PE
Hyperlipidemia-tolerates Crestor
DM II
Acute HFpEF
Lexiscan mibi 09/2022: Normal perfusion
Echo 12/17/2023: EF 57%, stage I diastolic dysfunction, normal RV size and function, trace MR
Plan:
-CTSP urgently for chest pain and recurrent rapid Afib. Patient went into rapid Afib while asleep 03/04/24 AM. Patient awoke and had chest pain. ECG urgent bedside reviewed by me shows rapid Afib with inferior and anterolateral ST depressions.
Cardizem 10 mg IV x1 now and HRs improved form 130s to less than 100 which correlated with symptomatic improvement. Chest pain improved.
-Check Troponin urgently
-Nonobstructive CAD by cath 05/2013. Lexiscan mibi 09/2022 had normal perfusion
-QTc stable at 455 after 3rd dose of Tikosyn 03/03/24 PM.
-Will proceed with 4th dose of Tikosyn 500 mcg 03/04/24 AM.
-Talked with patient about possible ablation pending ongoing response to Tikosyn for rhythm control. Reviewed with patient that she is highly symptomatic with Afib and had breakthrough despite 3 doses of Tikosyn. For now will cont with Tikosyn
loading and arrange for outpatient EP eval.
-Atenolol dose was decreased to 25 mg daily on 03/03/24, but given recurrence of Afib will increase back to 50 mg daily.
-pro-BNP 1210 on admission and that's the highest number she has had. Outpatient dose of chlorthalidone was stopped on 02/19/24. Patient takes Lasix 40 mg daily PRN at home for edema, but says that this is 1-2 times a month. Lasix 20 mg IV x1 given
03/03/24. Consider starting Lasix 20 mg daily or MWF at time of d/c
-Cont lisinopril 5 mg daily which was just started on 02/19/24 at the same time her chlorthalidone was stopped.
-Follow QTc on ECG while also taking Cymbalta and Paxil
-Patient can use her THC/CBD cream on her feet at night for her peripheral neuropathy, ordered via pharmacy
HPI: Patient came to [facility] today with Afib in RVR and cardiology has been consulted. Patient has a h/o paroxysmal Afib and was seen in the cardiology office for increased burden of Afib on 02/19/24. Patient was offered direct admission for Tikosyn
loading which is scheduled for 03/08/24, but patient started with rapid Afib at noon today and came to [facility]. Patient says she got her typical symptoms of a squeezing chest pain and B/L evangelical pain. She checked her pulse using her mobile sridhar and
found she was in Afib. Patient came to [facility] because her symptoms lasted for hours and ECG confirmed Afib.
Progress Note - Plan Manager
Subjective
Date of Service: March 04, 2024
Chest pain and palpitations that woke her from sleep
Objective
Labs:
03/03/24 03:09
03/03/24 03:09
Labs
Hgb 13.9 g/dL (12.0-16.0) 03/03/24 03:09
Hct 40.4 % (37.0-47.0) 03/03/24 03:09
Plt Count 258 10^3/uL (130-400) 03/03/24 03:09
Sodium 140 mmol/L (135-145) 03/03/24 03:09
Potassium 4.6 mmol/L (3.5-5.1) 03/03/24 03:09
BUN 24 mg/dl (7-17) H 03/03/24 03:09
Creatinine 0.9 mg/dL (0.6-1.0) 03/03/24 03:09
Glucose 112 mg/dl (70-99) H 03/03/24 03:09
Troponins
03/02/24
13:52
Troponin I < 0.012
Vital Signs and I&O:
Vital Signs
Temp Pulse Resp BP Pulse Ox
97.8 F 47 18 135/65 100
03/04/24 02:54 03/04/24 05:00 03/04/24 02:54 03/04/24 02:57 03/04/24 02:54
Vital Signs
Temp Pulse Resp BP Pulse Ox
97.8 F 47 18 135/65 100
03/04/24 02:54 03/04/24 05:00 03/04/24 02:54 03/04/24 02:57 03/04/24 02:54
Intake & Output
03/02/24 03/03/24 03/04/24 03/05/24
06:59 06:59 06:59 06:59
Intake Total 240 / 240 420 / 420
Output Total 194 / 1939
Balance 240 / 240 -1520 / -1520
Physical Exam
Physical Exam
GEN: NAD. AAOx3
HEENT: EOMI, MMM
LUNGS: No audible wheeze
CV: Rapid Afib on tele
ABD: ND
EXT: Trace B/L LE edema.
NEURO: Gross non-focal
SKIN: No rash
[2024-03-04] MEDS: TYLENOL 1000 MG PO (07:52)
[2024-03-04 08:56] LABS: Troponin I < 0.012 ng/ml
--- NOTE | 2024-03-04 09:53 | PTCARENOTE ---
4th dose 2hr post Qtc is 460, patient remain in rapid afib with a HR of 104
--- NOTE | 2024-03-04 10:05 | PN.CDI ---
CDI
- -
CDI:
Physician Documentation Request
Admit Date: 03/02/24 16:44
Dear Cardiology,
Patient admitted for atrial fibrillation.
Please review the following and provide your response in the progress notes.
Clinical Indicators:
Height: 5' 1'
Weight: 210 lbs
Selected Entries
03/02/24
13:16 03/02/24
17:38 03/03/24
02:57
Body Mass Index (BMI) 40.5 40.1 40.1
If possible, please provide an associated diagnosis related to the abnormal BMI, such as:
Obese
Overweight
BMI is not significant
Other
BMI > or = to 40.0
Overweight
Obesity:
Due to excess calories
Drug induced
Due to other cause
Severe or morbid obesity:
With alveolar hypoventilation (Obesity hypoventilation syndrome)
Without alveolar hypoventilation
Use of terms such as suspected, likely, concern for, or probable (associated with a specific diagnosis that is being evaluated, monitored, or treated as if it exists) are acceptable and can be coded in the inpatient setting, when documented at the
time of discharge.
Thank you,
Michelle Villasenor RN, BSN
CDI Specialist
Available via [place] text
Please use your independent medical judgment in providing your response.
--- NOTE | 2024-03-04 10:14 | W.PN.UPDATE ---
Addendum entered and electronically signed by Christie Arias PA-C 03/04/24 16:02:
Patient spontaneously converted back to SR, no pause. Feels much better in SR. Will cont Tikosyn 500 mcg q 12 hours, patient agreeable to see EP for ablation eval as an outpatient, she would like to see Dr. Sebastian Vázquez. Next dose of Tikosyn
should be given at 2000 tonight. Then I ordered Tikosyn 500 mcg q 12 hours as a standard order to start tomorrow morning. Also ordered 1 more ECG for the AM to check QTc. Second Troponin undetectable. No plans for additional ischemic evaluation this
admission.
Original Note:
Update Note
Progress Note Update
Back in to see patient. Remains in Afib with rates that are more rapid. Extra atenolol 25 mg now ordered for a total of 50 mg this morning. Cont Tikosyn 500 mcg q 12 hours. ECG 2 hours after the 4th dose from this morning was reviewed by me and QTc
460 ms. Recheck Troponin at noon. 5th dose of Tikosyn tonight. Will keep until tomorrow. NPO for possible CV vs cath pending Troponin. 31 min critical care time.
--- NOTE | 2024-03-04 10:33 | CM ---
Reviewed chart. Met with Mrs. Shi to review discharge plans. She is feeling okay. Prior to admission she resides with her spouse and 99 year old mother in a two story home two steps to enter. She has a full flight of steps to get to bedroom/full
bathroom. She has a stair glide in the home. She She has a powder room on the first floor. She has a prescription [facility] with [facility] and uses [facility]. She will need a three day script to be send to the [facility] to take home a
three day supply of Dofetilide. Reviewed co-pay with her for Dofetilide. She is agreeable to the co-pay. Medical work-up in progress. The discharge plan is to return home with her spouse and mother when medically stable.
[2024-03-04 12:54] LABS: Troponin I < 0.012 ng/ml
--- NOTE | 2024-03-04 15:34 | PTCARENOTE ---
The patient converted to Sinus Martin around 1439.
[2024-03-04] MEDS: XARELTO 20 MG PO (17:37)
[2024-03-04] MEDS: CRESTOR 40 MG PO (17:37)
[2024-03-04] MEDS: ADVAIR HFA 230/21 MCG INHALER 2 PUFF INH (19:23)
[2024-03-04] MEDS: PERCOCET 5/325 1 TABLET PO (20:08)
[2024-03-04] MEDS: [UNRECOGNIZED DRUG - OTHER] 1 UNIT TOPICAL (22:13)
--- NOTE | 2024-03-05 00:15 | PTCARENOTE ---
Tikosyn dose # 5 given this shift, QTc 2 hours post 477 ms. NSR - SB (50's) on the monitor. Pt. sleeping.
[2024-03-05 03:52] VITALS: BP 112/47
[2024-03-05 06:58] VITALS: BP 113/46
[2024-03-05] MEDS: ADVAIR HFA 230/21 MCG INHALER 2 PUFF INH (08:05)
--- NOTE | 2024-03-05 08:28 | CM ---
Reviewed chart. Met with Mrs. Shi to review discharge plans. We reviewed [facility] and she is agreeable to [facility]. [facility]. Sent the referral. Prior to admission she
resides with her spouse and mother in a two story home with two steps to enter. She has a full flight of steps to get to bedroom/full bathroom. She has a stair glide Prior to admission she was independent with ambulation and adls. She has a
prescription plan with [facility] and uses [facility]. She will need a script for a three day supply sent to . Pharmacy for her to take the three day supply home with her. Medical work-up in progress. The discharge plan is to return home
with her spouse and mother and [facility] when medically stable.
[2024-03-05] MEDS: ALDACTONE 25 MG PO (08:47)
[2024-03-05] MEDS: CYMBALTA DELAYED RELEASE 60 MG PO (08:47)
[2024-03-05] MEDS: HIPREX 1 GRAM PO (08:48)
[2024-03-05] MEDS: GLUCOPHAGE 500 MG PO (08:48)
[2024-03-05] MEDS: ZESTRIL 5 MG PO (08:49)
[2024-03-05] MEDS: TENORMIN 50 MG PO (08:49)
[2024-03-05] MEDS: PAXIL 30 MG PO (08:49)
[2024-03-05] MEDS: FOLTX 1 TABLET PO (08:49)
[2024-03-05] MEDS: PROTONIX 40 MG PO (08:49)
[2024-03-05] MEDS: FLUSH (NSS) 1 FLUSH IV (08:50)
[2024-03-05] MEDS: TIKOSYN 500 MCG PO (08:50)
--- NOTE | 2024-03-05 09:46 | PTCARENOTE ---
Received patient this morning resting in bed, states she had a good night, no ectopy noted on telemetry. Received 6th dose of tikosyn for EKG at 1100.
--- NOTE | 2024-03-05 10:16 | W.PN.CARDCBS ---
Addendum entered and electronically signed by Danielle Horner PA-C 03/05/24 15:19:
dictated d/c summary #[id number]
Addendum entered and electronically signed by Jefferson White MD 03/05/24 11:29:
I saw and examined the patient.
The Electrical Design Engineer's note was reviewed and I agree with the note.
Comment:
GEN: No distress, awake, Ox3
HEENT: supple, anicteric, mmm
LUNGS: CTA, no wheezes/rales
CV: Reg, S1/S2, 1/6 syst LSB, no gallop
ABD: soft, BS+, NT/ND
EXT: No edema
NEURO: Gross non-focal
SKIN: No rash
Plan:
Remains in sinus. Cont Tikosyn. QTc is stable.
Would D/C on Atenolol 50mg daily.
Cont Xarelto
Original Note:
Today's Communication / Plan
-
Stable for discharge
DC home on atenolol 50 mg and Tikosyn 500 mcg twice daily
Impression / Plan
-
PCP: Dr. Lerma
Cardiology: Dr. White
Impression:
Presented 03/02/2024 with Afib w/ RVR
Recurrent rapid Afib and chest pain 03/04/24
Afib with RVR
Paroxysmal Afib
Chronic Xarelto OAC
HTN
FMR
PMR
Nonobstructive CAD by cath 05/2013
h/o PE
Hyperlipidemia-tolerates Crestor
DM II
Acute HFpEF
Lexiscan mibi 09/2022: Normal perfusion
Echo 12/17/2023: EF 57%, stage I diastolic dysfunction, normal RV size and function, trace MR
Plan:
-Presented 03/02/2024 with Afib w/ RVR
-Patient went into rapid Afib while asleep 03/04/24 AM. Patient awoke and had chest pain. ECG urgent bedside reviewed by me shows rapid Afib with inferior and anterolateral ST depressions. Given Cardizem 10 mg IV x1 and HRs improved form 130s to less
than 100 which correlated with symptomatic improvement. Chest pain improved and patient converted to sinus rhythm without additional chest pain. Troponin x 2 was negative.
-Nonobstructive CAD by cath 05/2013. Lexiscan mibi 09/2022 had normal perfusion
-QTc stable at 485 after 6th dose of Tikosyn 03/05/24 AM.
-Talked with patient about possible ablation pending ongoing response to Tikosyn for rhythm control. She has highly symptomatic with Afib. Will arrange for outpatient EP eval.
-Atenolol dose was decreased to 25 mg daily on 03/03/24, but given recurrence of Afib will increase back to 50 mg daily. Heart rates do drop into the upper 40s however baseline appears to be 50s and heart rate does increase appropriately with
activity. If no further episodes of atrial fibrillation and heart rates remain low as outpatient would consider reducing atenolol to 25 mg in follow-up.
-pro-BNP 1210 on admission and that's the highest number she has had. Outpatient dose of chlorthalidone was stopped on 02/19/24. Patient takes Lasix 40 mg daily PRN at home for edema, but says that this is 1-2 times a month. Lasix 20 mg IV x1 given
03/03/24.
-Cont lisinopril 5 mg daily which was just started on 02/19/24 at the same time her chlorthalidone was stopped.
-QTc stable on ECG as patient also taking Cymbalta and Paxil
HPI: Patient came to [facility] today with Afib in RVR and cardiology has been consulted. Patient has a h/o paroxysmal Afib and was seen in the cardiology office for increased burden of Afib on 02/19/24. Patient was offered direct admission for Tikosyn
loading which is scheduled for 03/08/24, but patient started with rapid Afib at noon today and came to [facility]. Patient says she got her typical symptoms of a squeezing chest pain and B/L mandaeism pain. She checked her pulse using her mobile sridhar and
found she was in Afib. Patient came to [facility] because her symptoms lasted for hours and ECG confirmed Afib.
Progress Note - Environmental Aid
Subjective
Date of Service: March 05, 2024
Patient seen and examined. Patient reports she is feeling well. She has had no further episodes of chest discomfort since yesterday afternoon. Review of telemetry shows that she is maintaining sinus rhythm. She is able to ambulate around the
room without chest discomfort, shortness of breath, dizziness or lightheadedness.
Objective
Labs:
03/03/24 03:09
03/03/24 03:09
Labs
Hgb 13.9 g/dL (12.0-16.0) 03/03/24 03:09
Hct 40.4 % (37.0-47.0) 03/03/24 03:09
Plt Count 258 10^3/uL (130-400) 03/03/24 03:09
Sodium 140 mmol/L (135-145) 03/03/24 03:09
Potassium 4.6 mmol/L (3.5-5.1) 03/03/24 03:09
BUN 24 mg/dl (7-17) H 03/03/24 03:09
Creatinine 0.9 mg/dL (0.6-1.0) 03/03/24 03:09
Glucose 112 mg/dl (70-99) H 03/03/24 03:09
Troponins
03/02/24 03/04/24 03/04/24
13:52 08:24 12:24
Troponin I < 0.012 < 0.012 < 0.012
Vital Signs and I&O:
Vital Signs
Temp Pulse Resp BP Pulse Ox
98.1 F 60 16 113/46 94
03/05/24 06:56 03/05/24 08:08 03/05/24 08:08 03/05/24 06:58 03/05/24 08:08
Vital Signs
Temp Pulse Resp BP Pulse Ox
98.1 F 60 16 113/46 94
03/05/24 06:56 03/05/24 08:08 03/05/24 08:08 03/05/24 06:58 03/05/24 08:08
Intake & Output
03/03/24 03/04/24 03/05/24 03/06/24
06:59 06:59 06:59 06:59
Intake Total 240 / 240 420 / 420 960 / 960
Output Total 194 / 1940 2049
Balance 240 / 240 -1520 / -1520 -1090 / -1090
Physical Exam
Physical Exam
GEN: No distress, awake, Ox3, sitting in chair
HEENT: supple, anicteric, mmm
LUNGS: CTA, no wheezes/rales
CV: Reg, S1/S2, no murmur, rub or gallop
ABD: soft, BS+, NT/ND
EXT: No edema clubbing or cyanosis
NEURO: Gross non-focal
SKIN: No rash, warm, dry, pink
--- NOTE | 2024-03-05 10:40 | W.DS.TRANS ---
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
-
Discharge Instructions:
Discharge Diagnosis/Procedures Tikosyn loading for symptomatic paroxysmal
atrial fibrillation
Diet 2 Gram Sodium
Activity As tolerated
Driving Restrictions As prior to admission
Bathing Restrictions None
Other Services VN
Specialty Instructions Weigh Daily
Instructions:
Stand-Alone Forms:
Changes to Home Medications: Yes
Discharge Medications:
DC Medications w/original date entered in [employer]
paroxetine HCl 30 mg tablet 30 mg PO DAILY depression/anxiety 09/23/10
duloxetine 60 mg capsule,delayed release 60 mg PO DAILY Depression 10/27/14
metformin 500 mg tablet 500 mg PO DAILY Diabetes 10/27/14
esomeprazole magnesium 40 mg capsule,delayed release (Nexium) 40 mg PO DAILY Gastrointestinal issue 11/16/20
rivaroxaban 20 mg tablet (Xarelto) 20 mg PO QPM Blood clot prevention/tx ##0 02/01/21
rosuvastatin 40 mg tablet 40 mg PO QPM High Cholesterol 08/20/22
benzonatate 100 mg capsule 100 mg PO DAILYPRN PRN cough 02/21/23
fluticasone 500 mcg-salmeterol 50 mcg/dose blistr powdr for inhalation (Advair Diskus) 1 inh inhalation R BID Lung/Breathing Issues 02/21/23
ergocalciferol (vitamin D2) 1,250 mcg (50,000 unit) capsule (Vitamin D2) 1,250 mcg PO SA Supplement 09/29/23
famotidine 20 mg tablet (Pepcid) 20 mg PO HSPRN PRN GERD 09/29/23
ferrous sulfate 15 mg iron (75 mg)/mL oral drops 5 ml PO Q48H Supplement 09/29/23
furosemide 40 mg tablet 40 mg PO DAILYPRN PRN Edema 09/29/23
methenamine hippurate 1 gram tablet 1 g PO BID Urinary Issue 09/29/23
gfftthwroq-oxudlnqlecchp-vvtkalhv 50 mg-300 mg-40 mg capsule 1 cap PO Q6HPRN PRN migraine 03/02/24
cyanocobalamin 2 mg-levomefolate darinel 1.13 mg-pyridoxine 25 mg tablet (Folbic RF) 1 tab PO DAILY Supplement 03/02/24
lisinopril 5 mg tablet 5 mg PO DAILY Blood Pressure 03/02/24
methylprednisolone 4 mg tablets in a dose pack 0 mg PO PER PKG DIR Anti-Inflammatory 03/02/24
oxycodone-acetaminophen 5 mg-325 mg tablet 1 tab PO [id number] PRN severe pain 03/02/24
spironolactone 25 mg tablet 25 mg PO DAILY Fluid retention/BP 03/02/24
dofetilide 500 mcg capsule 500 mcg PO Q12 Arrhythmia #60 caps 03/04/24
atenolol 50 mg tablet 50 mg PO DAILY Blood Pressure #30 tabs 03/05/24
Home Medication Changes
New to Tikosyn 500 mcg BID
Pending Results: No
Total time spent discharging patient (in min): 35
[2024-03-05] MEDS: PERCOCET 5/325 1 TABLET PO (11:12)
[2024-03-05 11:50] VITALS: BP 119/64
--- NOTE | 2024-03-05 12:28 | W.PN.UPDATE ---
Update Note
Progress Note Update
Please add to PMH/diagnosis: morbid obesity due BMI 39-40
--- NOTE | 2024-03-05 12:39 | PTCARENOTE ---
Patient medicated for her chronic low back pain with percocet PO with relief. Waiting for her to drive her home at 1430.
--- NOTE | 2024-03-05 13:24 | PTCARENOTE ---
Reviewed discharge instructions with the patient and she states her understanding. Gave her 3 day filled scrip for tikosyn to take home. Patient aware of follow up appointment and new prescriptions. Patient discharged home with her .
== END 2024-03-05 13:23 | disposition home health service (06) | DRG 291 ==
LOC: IVU 16:44
PROVIDERS: Internal Medicine Cardiovascular Disease; Physician Assistant; Physician Assistant Medical; ADMITTING PHYSICIAN Internal Medicine Interventional Cardiology; EMERGENCY PHYSICIAN Emergency Medicine; FAMILY PHYSICIAN Family Medicine
PROC: 3E0DXRZ Introduction of Antiarrhythmic into Mouth and Pharynx, External Approach (ICD-10-PCS; 2024-03-02)
DX: I11.0 Hypertensive heart disease with heart failure (principal); I50.33 Acute on chronic diastolic (congestive) heart failure; Z68.41 Body mass index [BMI] 40.0-44.9, adult; I48.0 Paroxysmal atrial fibrillation; E11.9 Type 2 diabetes mellitus without complications; E66.01 Morbid (severe) obesity due to excess calories; E78.00 Pure hypercholesterolemia, unspecified; F41.0 Panic disorder [episodic paroxysmal anxiety]; K21.9 Gastro-esophageal reflux disease without esophagitis; M35.3 Polymyalgia rheumatica; M79.7 Fibromyalgia; J30.9 Allergic rhinitis, unspecified; I25.10 Atherosclerotic heart disease of native coronary artery without angina pectoris; Z86.711 Personal history of pulmonary embolism; Z88.1 Allergy status to other antibiotic agents; Z88.0 Allergy status to penicillin; Z88.2 Allergy status to sulfonamides; Z79.01 Long term (current) use of anticoagulants; Z79.84 Long term (current) use of oral hypoglycemic drugs
CPT/HCPCS: 71046; 80048; 83735; 83880; 84132; 84443; 84484; 85025; 85027; 93005; 94640; 99285

== ENCOUNTER 2024-04-02 16:54 | Emergency (ER) | payer MEDICARE, OTHER, SELFPAY ==
[2024-04-02 17:21] VITALS: BP 113/58
--- NOTE | 2024-04-02 17:30 | ED.GENMED ---
ED Provider Triage
<Karuna Moreau NP - Last Filed: 04/02/24 17:35>
-
Patient seen by provider in Triage?: Seen in Triage
Attestation: A medical screening examination has been initiated by a qualified medical provider. Based on the assessment performed at this time, it has been determined that an emergent medical condition may exist and the patient has been informed
that further medical evaluation and possible additional diagnostic testing may be needed.
HPI: 73 yo female here for chest pain started 1 p.m.and remains constant and feels like she's in afib. Mild SOB. Denies n/v/d/c.
admitted 03/02-03/05 for Afib RVR and HFpEF
History of paroxysmal atrial fibrillation on
chronic anticoagulation with Xarelto, hypertension, polymyalgia
rheumatica, nonobstructive coronary artery disease, history of
pulmonary embolism, hyperlipidemia, type 2 diabetes, and heart
failure with preserved ejection fraction.
GENERAL: Alert , in no apparent distress
EYE: No visual abnormalities.
NECK: Trachea midline
ENT: No visible abnormalities.
LUNGS: No acute respiratory distress
NEUROLOGICAL: Alert and oriented
SKIN: Skin intact. No visible changes.
MUSCULOSKELETAL: Moving extremities normally
PSYCH: Normal and appropriate interaction.
This is a medical evaluation conducted in person to initiate diagnostic evaluation and provide initial therapeutics. Please see further documentation by the treating clinician.
History of Present Illness
<Karuna Moreau POT PUSHER - Last Filed: 04/02/24 17:35>
General
Chief Complaint: Chest Pain
Time Seen by Provider: 04/02/24 21:24
<JORGE ALBERTO Koroma - Last Filed: 04/02/24 23:47>
General
Source: patient
Exam Limitations: none
History of Present Illness
History of Present Illness:
This is a 73 year old female that comes in with c/o atrial fib. States that she was here on March 02 in the hospital and started on Tikosyn. States that she has had 2 episodes of atrial fib since that time. Then today at 1pm she started with
discomfort in the middle of her chest like tightness and she was in atrial fib. States that it would go from 165 down to 111. States that her chest pain is occasional and she felt SOB. Denies any fever, chills, abd pain, nausea, vomiting, diarrhea,
headache, dizziness, urinary burning.
Past History
<Karuna Moreau NP - Last Filed: 04/02/24 17:35>
Past History
ED Past Medical History: Arrthythmia (Paroxysmal Atrial fibrillation), GERD, HTN, Hypercholesterolemia, NIDDM, Psychiatric (Panic attacks) and Other (Migraine headaches, fibromyalgia, polymyalgia rheumatica; allergic rhinitis)
ED Past Surgical History: Cardiac (Cardiac catheterization May 2013 showing mild luminal irregularities.), , Orthopedic (Carpal tunnel release right hand. Neurostimulator in spine) and Other (Implanted stimulator)
Social History
Tobacco: Non-smoker
Alcohol: None
Drug: Other (THC lotion)
Personal:
Living: with family
Employment: Retired
Family History
Family History: Hypertension and Cancer (Breast cancer)
<JORGE ALBERTO Koroma - Last Filed: 04/02/24 23:47>
Past History
ED Past Medical History: Asthma, Fibromyalgia and Other (Migraine headaches, polymyalgia rheumatica; allergic rhinitis, Neuropathy , PNA, PE/DVT, Sleep apnea, Pleural effusion, Hiatal hernia, UTi, Iron Def anemia, )
ED Past Surgical History: (X 2), Gynecological (D&E, Hysterectomy), Orthopedic (Carpal tunnel release right hand. Neurostimulator in spine, Left wrist surgery, Left knee surgery, Fusion L4-L5, ), Tonsilectomy and Other (Implanted
stimulator, Cataracts, Uvulectomy)
Review of Systems
<JORGE ALBERTO Koroma - Last Filed: 04/02/24 23:47>
Review of Systems
All Other Systems: ROS reviewed and negative except as documented in HPI and ROS
Constitutional: Reports no symptoms; Denies fever or chills
EENT: Reports no symptoms
Respiratory: Reports trouble breathing; Denies cough
Cardiac: Reports chest pain and other (Atrial fib)
ABD/GI: Reports no symptoms; Denies abdominal pain, nausea, vomiting or diarrhea
: Reports no symptoms; Denies dysuria, incontinence or urgency
Musculoskeletal: Reports no symptoms
Skin: Reports no symptoms
Neurological: Reports no symptoms; Denies dizzy or headache
Psychiatric: Reports no symptoms
Phy Exam
<JORGE ALBERTO Koroma - Last Filed: 04/02/24 23:47>
General Physical Exam
General Presentation: no apparent distress
General age: appears stated age
General Skin: warm and dry
General Habitus: elderly
General Mental: alert
General Hydration: appears well hydrated
ENT Exam
ENT Exam: TM's normal, pharynx normal and neck supple
Eye Exam
Eye Exam: EOMI
Cardiovascular Exam
Cardiovascular Exam: normal peripheral pulses and irregularly irregular
Pulmonary Exam
Pulmonary Exam: lungs clear, no respiratory distress, no rales, chest non tender, no crackles, no rhonchi, no wheezing and no cough
Gastrointestinal Exam
Gastrointestinal Exam: normal bowel sounds, non tender, soft, no organomegaly, no pulsatile mass and non distended
Musculoskeletal Exam
Musculoskeletal Exam: full ROM and edema (Lower leg +1 pitting)
Skin Exam
Skin Exam: normal color, warm/dry, no rash and no petechia
Psychiatric Exam
Psychiatric Exam: normal mood/affect
Scores
<JORGE ALBERTO Koroma - Last Filed: 04/02/24 23:47>
Heart Score for Chest Pain Patients
STEMI patient?: No
History: Slightly or Non-Suspicious
ECG: Normal (iN ATRIAL FIB)
Age: >/= 65 years
Risk Factors: 1 or 2 Risk Factors
Troponin: </= Normal Limit
Heart Score for Chest Pain Patients: 3
Heart Score Risk: 2.5% MACE over next 6 weeks
Course
[place];Karuna Moreau, POT PUSHER - Last Filed: 04/02/24 17:35>
Orders/Labs/Results
Orders:
Orders
04/02/24 16:54
ECG [Electrocardiogram (*1)] Urgent
Reason for Study: Chest Pain
04/02/24 16:55
EKG- Treatment ONCE
04/02/24 17:34
CMP [Comprehensive Metabolic Panel] Urgent
Complete Blood Count/With Diff Urgent
Troponin I Urgent
04/02/24 21:55
0.9% Sodium Chloride 500 ml [Nss] 500 ml IV BOLUS
04/02/24 22:07
CR Chest - 2 Views Urgent
Comment:
Reason For Exam: Chest pain SOB
04/02/24 23:32
EKG [Electrocardiogram (*1)] Urgent
Reason for Study: Other
Other Reason for Exam: rhythm change
04/02/24 23:33
EKG- Treatment ONCE
Abnormal Lab Results
04/02/24
17:34
WBC 12.8 H 10^3/uL
(4.8-10.8)
Abs Immat Gran (auto) 0.1 H 10^3/uL
(0-0.05)
Absolute Neuts (auto) 8.5 H 10^3/uL
(1.4-6.5)
Absolute Monos (auto) 1.0 H 10^3/uL
(0.1-0.6)
BUN 25 H mg/dl
(7-17)
AST 40 H U/L
(36)
04/02/24 17:34
04/02/24 17:34
Vital Signs
Initial and Last Documented VS:
Initial Vital Signs
Temp Pulse Resp BP Pulse Ox
98.1 F 104 18 113/58 99
04/02/24 17:21 04/02/24 17:21 04/02/24 17:21 04/02/24 17:21 04/02/24 17:21
Last Documented Vital Signs
Temp Pulse Resp BP Pulse Ox
98.1 F 48 15 124/72 97
04/02/24 17:21 04/02/24 23:30 04/02/24 23:30 04/02/24 23:29 04/02/24 23:00
<JORGE ALBERTO Koroma - Last Filed: 04/02/24 23:47>
Orders/Labs/Results
Orders:
Orders
04/02/24 16:54
ECG [Electrocardiogram (*1)] Urgent
Reason for Study: Chest Pain
04/02/24 16:55
EKG- Treatment ONCE
04/02/24 17:34
CMP [Comprehensive Metabolic Panel] Urgent
Complete Blood Count/With Diff Urgent
Troponin I Urgent
04/02/24 21:55
0.9% Sodium Chloride 500 ml [Nss] 500 ml IV BOLUS
04/02/24 22:07
CR Chest - 2 Views Urgent
Comment:
Reason For Exam: Chest pain SOB
04/02/24 23:32
EKG [Electrocardiogram (*1)] Urgent
Reason for Study: Other
Other Reason for Exam: rhythm change
04/02/24 23:33
EKG- Treatment ONCE
Abnormal Lab Results
04/02/24
17:34
WBC 12.8 H 10^3/uL
(4.8-10.8)
Abs Immat Gran (auto) 0.1 H 10^3/uL
(0-0.05)
Absolute Neuts (auto) 8.5 H 10^3/uL
(1.4-6.5)
Absolute Monos (auto) 1.0 H 10^3/uL
(0.1-0.6)
BUN 25 H mg/dl
(7-17)
AST 40 H U/L
(14-36)
04/02/24 17:34
04/02/24 17:34
Leukocytosis, Dehydration. AST mildly elevated. Troponin <0.012
Vital Signs
Initial and Last Documented VS:
Initial Vital Signs
Temp Pulse Resp BP Pulse Ox
98.1 F 104 18 113/58 99
04/02/24 17:21 04/02/24 17:21 04/02/24 17:21 04/02/24 17:21 04/02/24 17:21
Last Documented Vital Signs
Temp Pulse Resp BP Pulse Ox
98.1 F 48 15 124/72 97
04/02/24 17:21 04/02/24 23:30 04/02/24 23:30 04/02/24 23:29 04/02/24 23:00
<Sebastian Kothari MD - Last Filed: 04/02/24 22:50>
Orders/Labs/Results
Orders:
Orders
04/02/24 16:54
ECG [Electrocardiogram (*1)] Urgent
Reason for Study: Chest Pain
04/02/24 16:55
EKG- Treatment ONCE
04/02/24 17:34
CMP [Comprehensive Metabolic Panel] Urgent
Complete Blood Count/With Diff Urgent
Troponin I Urgent
04/02/24 21:55
0.9% Sodium Chloride 500 ml [Nss] 500 ml IV BOLUS
04/02/24 22:07
CR Chest - 2 Views Urgent
Comment:
Reason For Exam: Chest pain SOB
04/02/24 23:32
EKG [Electrocardiogram (*1)] Urgent
Reason for Study: Other
Other Reason for Exam: rhythm change
04/02/24 23:33
EKG- Treatment ONCE
Abnormal Lab Results
04/02/24
17:34
WBC 12.8 H 10^3/uL
(4.8-10.8)
Abs Immat Gran (auto) 0.1 H 10^3/uL
(0-0.05)
Absolute Neuts (auto) 8.5 H 10^3/uL
(1.4-6.5)
Absolute Monos (auto) 1.0 H 10^3/uL
(0.1-0.6)
BUN 25 H mg/dl
(7-17)
AST 40 H U/L
(14-36)
04/02/24 17:34
04/02/24 17:34
Vital Signs
Initial and Last Documented VS:
Initial Vital Signs
Temp Pulse Resp BP Pulse Ox
98.1 F 104 18 113/58 99
04/02/24 17:21 04/02/24 17:21 04/02/24 17:21 04/02/24 17:21 04/02/24 17:21
Last Documented Vital Signs
Temp Pulse Resp BP Pulse Ox
98.1 F 48 15 124/72 97
04/02/24 17:21 04/02/24 23:30 04/02/24 23:30 04/02/24 23:29 04/02/24 23:00
<JORGE ALBERTO Koroma - Last Filed: 04/02/24 23:47>
MDM/Problems Addressed
Differential Diagnosis Includes:
Atrial fib, Coronary syndrome
MDM/Problems Addressed:
This is a 73 year old female that comes in with c/o chest tightness and atrial fib. States that this started today around 1pm.
Will get labs. Dr. Kothari to see patient and discuss Cardioversion.
Back into see patient. Patient is now in a Sinus janelle at 50. States that she always runs low. Patient to follow up with Hr Generalist on Friday as scheduled. Encouraged patient to increase her water intake to 8-8oz glasses daily. Return with any
concerns.
Repeat ECG: rate 49, Sinus janelle, Normal axis. Normal QRS, Negative for ischemia.
Chronic conditions affecting care: Arrhythmia (Atrial fib)
Acute Exacerbation and/or Progression of Chronic Illness: Arrhythmia (Atrial fib)
<JORGE ALBERTO Koroma - Last Filed: 04/02/24 23:47>
*Pulse Oximetry
Patient hypoxic: no
*EKG
Interpreted by ED Provider?: Yes
Heart Rate: 127
Rate: tachycardiac
Rhythm: a-fib
Alma: normal axis
QRS Pattern: normal QRS
Ischemia: non-specific ST changes
*Roll Over Loader Interpretation
Rate: tachycardiac
Interpretation: abnormal
Heart Rate: 115
Rhythm: a-fib
*Critical Care Note
Total Time (30-74mins, 75-104mins- exclusive of procedures): Not Applicable
ED Attending Note
<Karuna Moreau NP - Last Filed: 04/02/24 17:35>
-
Portions of this chart may have been created with voice recognition software.� Occasional wrong word or��sound alike� substitutions may have occurred due to the inherent limitations of voice recognition software.
<Sebastian Kothari MD - Last Filed: 04/02/24 22:50>
ED Attending Note
Patient seen and examined by attending physician: Yes
I performed the substantive portion of visit, reviewed & personally made and approve the management plan that is documented in note by myself or HEIDE.: Yes
ED Attending Note:
73-year-old female on Tikosyn for PAF. Presents with onset of irregular heartbeat racing and some chest pain earlier this afternoon. Symptoms are minimal at this time. No syncope no shortness of breath. No current chest pain. Patient is
faithful on Xarelto. Faithful on Tikosyn.
On exam patient is nontoxic in no distress. Warm and dry. Perfusing well. Lungs clear and equal. Heart mildly irregular and minimally tachycardic at 104. Abdomen soft and nontender. Moderate chronic edema of the lower extremities.
Clinically she is in no florid heart failure. She is nontoxic. She is relatively rate controlled with minimal tachycardia. Discussed options with patient of cardioversion versus continued rate control anticoagulation and monitoring. After +/- of
both approaches were discussed patient is elected for conservative management. She may take a half extra dose of her atenolol if needed and follow-up with cardiology this week
Discharge Plan
Departure
Patient Disposition: Home (Routine Discharge)
Date of Disposition: 04/02/24
Time of Disposition: 23:39
Patient with high blood pressure during this ER visit?: No
Condition: Good
Covid-19: Not Applicable
Discharge Problem:
Paroxysmal atrial fibrillation, Chest pain
Instructions: Atrial Fibrillation (DC), Chest Pain
Prescriptions:
No Action
paroxetine HCl 30 MG tablet
30 mg PO DAILY
metformin 500 MG tablet
500 mg PO DAILY
duloxetine 60 MG capsule,delayed release(DR/EC)
60 mg PO DAILY
esomeprazole magnesium [Nexium] 40 MG capsule,delayed release(DR/EC)
40 mg PO DAILY
Xarelto 20 MG tablet
20 mg PO QPM Qty: 0 0RF
rosuvastatin 40 mg Tablet
40 mg PO QPM
benzonatate 100 mg Capsule
100 mg PO DAILYPRN PRN (Reason: cough)
fluticasone propion-salmeterol [Advair Diskus] 500-50 mcg/dose Blister With Device
1 inh INHALATION R BID
Rx Instructions:
nebulizer
ergocalciferol (vitamin D2) [Vitamin D2] 1,250 mcg (50,000 unit) Capsule
1,250 mcg PO SA
methenamine hippurate 1 gram Tablet
1 g PO BID
furosemide 40 mg Tablet
40 mg PO DAILYPRN PRN (Reason: Edema)
famotidine [Pepcid] 20 mg Tablet
20 mg PO HSPRN PRN (Reason: GERD)
ferrous sulfate 15 mg iron (75 mg)/mL Drops
5 ml PO Q48H
oxycodone-acetaminophen 5-325 mg Tablet
1 tab PO [id number] PRN (Reason: severe pain)
lisinopril 5 mg Tablet
5 mg PO DAILY
methylprednisolone 4 mg Tablets,Dose Pack
0 mg PO PER PKG DIR
mdevrtqkab-wfyvwqzadlwno-rncf 50-300-40 mg capsule
1 cap PO Q6HPRN PRN (Reason: migraine)
Folbic RF 2-1.13-25 mg tablet
1 tab PO DAILY
spironolactone 25 MG tablet
25 mg PO DAILY
dofetilide 500 mcg Capsule
500 mcg PO Q12 Qty: 60 11RF
atenolol 50 mg Tablet
50 mg PO DAILY Qty: 30 5RF
Referrals:
Cecil Lerma Jr., [Family Provider] -
Emily Vázquez MD [Active] - 04/06/24
Activity Restrictions/Additional Instructions:
As discussed, your blood work shows that you are dehydrated. You have been given IV fluids here. Your Troponin is normal. You are now back in a sinus bradycardia. Please increase your water intake to 8-8oz glasses daily. Follow up with the
Hr Generalist on Friday as scheduled. IF YOU HAVE ANY OTHER CONCERNS PLEASE RETURN TO THE [facility] ROOM.
Interventions
Interventions:
*Risk Screen - Suicide Last Done: 04/02/24 17:21
*General Assessment Last Done: 04/02/24 21:36
*Neglect/Abuse Screening Last Done: 04/02/24 17:21
ED- Fall Risk Assessment Last Done: 04/02/24 21:36
*ED COVID-19 Vaccine History Last Done: 04/02/24 21:36
ED- Cardiac Assessment Last Done: 04/02/24 21:36
Discharge Date and Time
Print Language: KYRGYZ
[2024-04-02 17:47] LABS: % Basophils 0.5 % (0-2); % Eosinophils 0.4 % (0-6); % Immature Granulocytes 0.5 % (0-0.5); % Lymphocytes 23.9 % (20.5-51.1); % Monocytes 8.1 % (1.7-9.3); % Neutrophils 66.6 % (42.2-75.2); Absolute Basophils 0.1 10^3/uL (0-0.2); Absolute Eosinophils 0.1 10^3/uL (0-0.7); Absolute Immature Granulocytes 0.1 10^3/uL (0-0.05); Absolute Lymphocytes 3.1 10^3/uL (1.2-3.4); Absolute Neutrophils 8.5 10^3/uL (1.4-6.5); Hematocrit 38.3 % (37.0-47.0); Mean Corp Hgb Conc. 33.9 g/dL (33.0-37.0); Mean Corpuscular Hgb 30.3 pg (27.0-31.0); Mean Corpuscular Volume 89.3 fL (81.0-99.0); Mean Platelet Volume 9.4 fL (7.4-10.4); Nucleated Red Blood Cells % 0 %; Platelet Count 291 10^3/uL (130-400); Red Blood Cell Count 4.29 10^6/uL (4.20-5.40); Red Cell Dist. Width 13.6 % (11.5-14.5); White Blood Cell Count 12.8 10^3/uL (4.8-10.8)
[2024-04-02 18:04] LABS: ALT (SGPT) 27 U/L (0-35); AST (SGOT) 40 U/L (14-36); Albumin 4.5 g/dl (3.5-5.0); Alkaline Phosphatase 69 U/L (38-126); Blood Urea Nitrogen 25 mg/dl (7-17); Calcium 10.1 mg/dl (8.4-10.2); Carbon Dioxide 25 mmol/L (22-30); Chloride 106 mmol/L (98-107); Glucose 95 mg/dl (70-99); Potassium 4.4 mmol/L (3.5-5.1); Sodium 143 mmol/L (135-145); Total Bilirubin 0.4 mg/dl (0.2-1.3); Total Protein 7.3 g/dl (6.3-8.2); eGFR > 60.00
[2024-04-02 18:17] LABS: Troponin I < 0.012 ng/ml
[2024-04-02 21:12] VITALS: BP 120/71
[2024-04-02 21:36] VITALS: BMI 38.9
[2024-04-02 21:39] VITALS: BP 108/71
[2024-04-02] MEDS: NSS 500 IV (21:58)
[2024-04-02 22:05] VITALS: BP 118/80
[2024-04-02 23:00] VITALS: BP 126/110
[2024-04-02 23:29] VITALS: BP 124/72
== END 2024-04-03 00:24 | disposition home or self-care (01) ==
LOC: EMR 16:54
PROVIDERS: Student in an Organized Health Care Education/Training Program; EMERGENCY PHYSICIAN Emergency Medicine; FAMILY PHYSICIAN Family Medicine
DX: R07.89 Other chest pain (principal); I48.0 Paroxysmal atrial fibrillation; R06.02 Shortness of breath; I11.0 Hypertensive heart disease with heart failure; I50.32 Chronic diastolic (congestive) heart failure; M35.3 Polymyalgia rheumatica; I25.10 Atherosclerotic heart disease of native coronary artery without angina pectoris; E11.36 Type 2 diabetes mellitus with diabetic cataract; E11.40 Type 2 diabetes mellitus with diabetic neuropathy, unspecified; E78.00 Pure hypercholesterolemia, unspecified; E86.0 Dehydration; G47.30 Sleep apnea, unspecified; J45.909 Unspecified asthma, uncomplicated; K21.9 Gastro-esophageal reflux disease without esophagitis; M79.7 Fibromyalgia; Z80.3 Family history of malignant neoplasm of breast; Z82.49 Family history of ischemic heart disease and other diseases of the circulatory system; Z86.711 Personal history of pulmonary embolism; Z86.718 Personal history of other venous thrombosis and embolism; Z87.440 Personal history of urinary (tract) infections; Z90.710 Acquired absence of both cervix and uterus
CPT/HCPCS: 99283; 71046; 80053; 84484; 85025; 93005

== ENCOUNTER → 2024-04-27 12:10 | Outpatient (REF) | payer MEDICARE, OTHER, SELFPAY | LOC: DHSLP 12:10 | PROVIDERS: ATTENDING PHYSICIAN Internal Medicine Cardiovascular Disease; FAMILY PHYSICIAN Family Medicine | DX: G47.30 Sleep apnea, unspecified (principal); R06.83 Snoring | CPT/HCPCS: 95800 ==

== ENCOUNTER → 2024-05-11 14:23 | Outpatient (REF) | payer MEDICARE, OTHER, SELFPAY | LOC: HWRAD 14:23 | PROVIDERS: ATTENDING PHYSICIAN Family Medicine; REFERRING PHYSICIAN Psychiatry & Neurology Neurology | DX: Z13.820 Encounter for screening for osteoporosis (principal); Z78.0 Asymptomatic menopausal state | CPT/HCPCS: 77080 ==

== ENCOUNTER 2024-05-21 08:39 | Day surgery (SDC) | payer MEDICARE, OTHER, SELFPAY ==
[2024-05-14 09:16] VITALS: BMI 38.9
[2024-05-21] VITALS (18 sets, daily range): BP systolic 89–123; BP diastolic 46–77; BMI 39.2
[2024-05-21 09:40] LABS: Glucose - Point of Care 81 mg/dl (70-99)
--- NOTE | 2024-05-21 10:08 | ITS.CL.ABL ---
Configuration Developer - Ablation
Ablation
Procedure Report:
Primary Aeronautical Drafter: Daniel White MD
Procedure Date: 05/21/2024
Patient History:
Patient is a pleasant 74-year-old female with a past medical history significant for diabetes mellitus type 2 aortic atherosclerosis, moderate asthma, history of PE, mixed hyperlipidemia, hypertension, symptomatic paroxysmal atrial fibrillation.
See H&P for complete details.
Indication:
Symptomatic paroxysmal atrial fibrillation
Arrhythmia Specific History:
Prior Medical Therapies for Rate and Rhythm Control:
X Beta-dinesh
[ ] Calcium channel-dinesh
[ ] Amiodarone
[ ] Dronederone
[ ] Sotalol
[ ] Flecainide
X Dofetilide
[ ] Options limited by bradycardia
[ ] Options limited by comorbid renal disease
Prior Procedural Therapies for AF/AFL:
[ ] Cardioversion
[ ] Pulmonary Vein Isolation
[ ] Posterior Wall Isolation
[ ] Additional lines (Specify)
[ ] Surgical Vaz-MAZE or PVI (Specify)
Procedure Performed:
X AF ablation procedure (00078) -- includes LA/CS pacing, trans-septal, 3D mapping, + ICE
[ ] +IV drug (21140)
[ ] +Other Arrhythmia (35488)
[ ] +Other AF Line/ablation (45907)
Risks and expected recovery has been explained in detail. Alternative options have been explored, and in a shared-decision making fashion we have decided that this was the most appropriate procedure.
Method
NPO status confirmed. Grounding pad applied. Defibrillator pads applied. Continuous surface ECG, pulse oximetry, and blood pressure were monitored. Procedure was performed under general anesthesia, with anesthesia services.
Both groins were clipped, prepped with Chloraprep, and draped in sterile fashion. Time out was called. Local anesthesia administered with bupivacaine. The right femoral vein was accessed for catheter placement, using ultrasound guidance (images
saved to record), micro-puncture needle/wire, and modified seldinger technique. 3 sheaths were placed. The following catheters were used:
[ ] Tacticath SE (D/F Curve) ablation catheter
X Viewflex 9Fr ICE catheter
X Inquiry decapolar 6Fr diagnostic catheter
[ ] CRD Hex 6Fr
[ ] Arctic Front Advance Cryoballoon ([ ]28mm[ ]23mm)
[ ] Achieve Advance mapping catheter ([ ]15mm[ ]20mm)
X FlexCath Contour 10 Fr with PulseSelect PFA Catheter
X Advisor HD Grid Mapping Catheter, SE
[ ] Acuson AcuNav 8 Fr ICE catheter
[ ]Other: [ ]
Intracardiac ultrasound (ICE) was carefully advanced into the right atrium to guide sheath placement over a J-wire, catheter placement, guide trans-septal puncture, identify potential complications, identify anatomic structures and ensure proper
contact between ablation catheter and tissue.
Heparin was given prior to trans-septal puncture. Heparin was given to achieve and maintain a target ACT of 300-400 seconds throughout the procedure.
Trans-septal access was performed under ICE guidance. The trans-septal puncture was performed with a SafeSept wire through a Brockenbrough needle assembly through the steerable sheath. The wire was visualized as it entered the LSPV and system
advanced under ICE guidance and fluoroscopy into the LA. The Brockenbrough needle assembly, SafeSept wire and sheath dilator were removed under negative pressure. LA pressure was measured and recorded.
ICE and 3D mapping was performed to identify relevant cardiac structures. A careful 3D map was created to assess for regions of low-voltage and abnormal electrogram signals using HD grid mapping catheter and PulseSelect catheter. Additional mapping
was performed as outlined below.
Prior to ablation, glycopyrrolate was provided. PulseSelect catheter was advanced over J-wire to the ostium of each vein. Pulmonary vein isolation was performed with ostial and antral lesions in a circumferential manner. Contact was visualized via
EAM, ICE, fluoroscopy, and EGM signals. Following completion of ablation lesions, a post-ablation voltage/activation map was performed in sinus rhythm. Entrance and exit block were confirmed for each vein.
Catheter and sheath were removed from the left atrium and post-ablation intracardiac echo evaluation was consistent with pre-ablation with no changes and no pericardial effusion and there is no left atrial thrombus or left ventricle thrombus seen.
Electrophysiology study was performed. Hemostasis was obtained with figure of 8 stitch for each groin and with manual pressure. Protamine was used for reversal.
LA Pressure:
12 mmHg
Estimated Blood Loss
5 mL
Complications
None
Fluoroscopy: 1.9 minutes; 7.78 mGy; DAP 1.04
Baseline Intervals:
Rhythm: SR
RI: 154 ms
QRS: 93 ms
QT: 457 ms
QTc: 495 ms
Post-Procedure Intervals:
RI: 183 ms
QRS: 87 ms
QT: 468 ms
AVWB: 330 ms
AERP: 600/270 ms
Recommendations
- Bedrest with straight-leg precautions as ordered
- Admit with anticipate discharge home tomorrow after overnight observation
- Resume home medications as indicated
- Ok to resume anticoagulation tonight if patient and groin sites stable
- PPI daily for 30 days
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
- Continue dofetilide 500 mcg BID
- Repeat BMP in 1 week
- Plan for follow-up in office as scheduled
Sebastián Donis DO
Clinical Cardiac Tobacco Drier Operator
cc: Cecil Lerma MD; Daniel White MD
[2024-05-21 11:28] LABS: ACT-LR - POC 273 Seconds (116-155)
[2024-05-21 11:46] LABS: ACT-LR - POC 372 Seconds (116-155)
[2024-05-21 12:10] LABS: ACT-LR - POC 392 Seconds (116-155)
[2024-05-21 12:33] LABS: ACT-LR - POC 152 Seconds (116-155)
[2024-05-21 13:17] LABS: Glucose - Point of Care 131 mg/dl (70-99)
[2024-05-21] MEDS: TYLENOL 650 MG PO (13:31)
[2024-05-21] MEDS: PROTONIX IV 40 MG IV (13:37)
--- NOTE | 2024-05-21 14:07 | PTCARENOTE ---
dr forbes at bedside while pt complain of chest discomfort. dr aware of tylenol and protonix given. he assesed pts pain and is awarae of 10 discomfort . no new orders. will continue to monitor
--- NOTE | 2024-05-21 15:27 | PTCARENOTE ---
Received patient from the EP lab after PVI via right femoral vein. Patient is AAO x 3, aware of post PVI restrictions. Dressing right groin is dry and intact with palpable pedal pulse. Oriented to the room and plan of care, monitoring VS, SB on the
monitor. Call boudreaux in reach, aware she is bedrest until 1700.
--- NOTE | 2024-05-21 16:29 | CM ---
spoke to pt in room, she is prev indep, lives with her husb in a 2 story home with 2 steps to enter. she has a cane and a walker at home to use if needed. plan is for dc to home when medically stable.
[2024-05-21 17:27] LABS: Glucose - Point of Care 136 mg/dl (70-99)
[2024-05-21] MEDS: XARELTO 20 MG PO (17:33)
[2024-05-21] MEDS: ANESTHETIC LOZENGE 1 LOZENGE PO (17:33)
--- NOTE | 2024-05-21 17:57 | PTCARENOTE ---
Patient feeling better chest discomfort resolved after PVI. Complaining of a scratchy throat, medicated with cepacol kusum. Sitting upright in bed eating dinner, dressing right groin is dry and intact. Patient visiting with her daughter, instructed to
call for assistance the first time she gets oob.
[2024-05-21] MEDS: ADVAIR HFA 115/21 MCG INHALER 2 PUFF INH (19:13)
[2024-05-21] MEDS: TIKOSYN 500 MCG PO (19:36)
[2024-05-21] MEDS: HIPREX 1 GRAM PO (19:36)
[2024-05-21 21:20] LABS: Glucose - Point of Care 184 mg/dl (70-99)
--- NOTE | 2024-05-21 21:37 | PTCARENOTE ---
Pt rec'd at change of shift bedrest complete. Pt assisted to bathroom to void. Sinus on telemetry. right groin site with DDI no hematoma noted.
Pt's only complaint is that when she inhales feels like shes going to go into afib also states chest feels tender inside. Pt denies need for any pain medication. call boudreaux within reach.
[2024-05-22 03:49] VITALS: BP 123/73
[2024-05-22 04:04] VITALS: BMI 40.0
[2024-05-22 04:41] LABS: Hematocrit 33.8 % (37.0-47.0); Hemoglobin 11.2 g/dL (12.0-16.0); Mean Corp Hgb Conc. 33.1 g/dL (33.0-37.0); Mean Corpuscular Hgb 30.6 pg (27.0-31.0); Mean Corpuscular Volume 92.3 fL (81.0-99.0); Mean Platelet Volume 9.6 fL (7.4-10.4); Platelet Count 215 10^3/uL (130-400); Red Blood Cell Count 3.66 10^6/uL (4.20-5.40); White Blood Cell Count 13.6 10^3/uL (4.8-10.8)
[2024-05-22 05:05] LABS: Blood Urea Nitrogen 17 mg/dl (7-17); Calcium 8.6 mg/dl (8.4-10.2); Carbon Dioxide 24 mmol/L (22-30); Chloride 103 mmol/L (98-107); Estimated Creatinine Clearance 61 ml/min; Glucose 113 mg/dl (70-99); Magnesium 1.9 mg/dl (1.6-2.3); Potassium 4.8 mmol/L (3.5-5.1); Sodium 137 mmol/L (135-145); eGFR > 60.00
[2024-05-22 07:03] VITALS: BP 116/55
--- NOTE | 2024-05-22 07:35 | W.PN.CARDCBS ---
Addendum entered and electronically signed by Jefferson White MD 05/22/24 09:30:
I saw and examined the patient.
The Scrap Hooker's note was reviewed and I agree with the note.
Comment:
GEN: No distress, awake, Ox3
HEENT: supple, anicteric, mmm
LUNGS: CTA, no wheezes/rales
CV: Reg, S1/S2, 1/6 syst LSB, no gallop
ABD: soft, BS+, NT/ND
EXT: No edema
NEURO: Gross non-focal
SKIN: No rash
Plan:
She remains in sinus rhythm status post ablation. Continue Tikosyn. Will continue atenolol 25 p.o. twice daily.
With cough will switch lisinopril to losartan.
Continue Xarelto. Okay for discharge
Original Note:
Today's Communication / Plan
-
D/C to home today on usual doses of Tikosyn and atenolol
Outpatient lisinopril changed to losartan due to cough
Impression / Plan
-
PCP: Dr. Lerma
Cardiology: Dr. White
EP: Dr. Donis
Impression:
s/p PVI 05/21/23
Paroxysmal Afib
Chronic Xarelto OAC
Chronic Tikosyn therapy
HTN
FMR
PMR
Nonobstructive CAD by cath 05/2013
h/o PE
Hyperlipidemia-tolerates Crestor
DM II
Acute HFpEF
Lexiscan mibi 09/2022: Normal perfusion
Echo 12/17/2023: EF 57%, stage I diastolic dysfunction, normal RV size and function, trace MR
Plan:
-Patient had successful PVI 05/21/24 and remains in SR 05/22/24.
-Outpatient dose of Tikosyn 500 mcg q 12 hours has been continued. QTc 476 ms by ECG 05/22/24
-Outpatient dose of Xarelto 20 mg daily (CrCl 61) has been continued
-Patient with chronic cough and so outpatient dose of lisinopril was stopped this admission and patient transitioned to losartan 25 mg daily. Check BMP in 1 week
-Will resume outpatient dose of atenolol 25 mg BID as well
-D/C to home
HPI: Patient came to [facility] today with Afib in RVR and cardiology has been consulted. Patient has a h/o paroxysmal Afib and was seen in the cardiology office for increased burden of Afib on 02/19/24. Patient was offered direct admission for Tikosyn
loading which is scheduled for 03/08/24, but patient started with rapid Afib at noon today and came to [facility]. Patient says she got her typical symptoms of a squeezing chest pain and B/L amish pain. She checked her pulse using her mobile sridhar and
found she was in Afib. Patient came to [facility] because her symptoms lasted for hours and ECG confirmed Afib.
Progress Note - Winding Operator
Subjective
Date of Service: May 22, 2024
Feel well, ongoing cough
Objective
Labs:
05/22/24 03:57
05/22/24 03:57
Labs
Hgb 11.2 g/dL (12.0-16.0) L 05/22/24 03:57
Hct 33.8 % (37.0-47.0) L 05/22/24 03:57
Plt Count 215 10^3/uL (130-400) 05/22/24 03:57
Sodium 137 mmol/L (135-145) 05/22/24 03:57
Potassium 4.8 mmol/L (3.5-5.1) 05/22/24 03:57
BUN 17 mg/dl (7-17) 05/22/24 03:57
Creatinine 0.9 mg/dL (0.6-1.0) 05/22/24 03:57
Glucose 113 mg/dl (70-99) H 05/22/24 03:57
Vital Signs and I&O:
Vital Signs
Temp Pulse Resp BP Pulse Ox
98.1 F 57 18 123/73 95
05/22/24 07:02 05/22/24 04:00 05/22/24 07:02 05/22/24 03:49 05/22/24 07:02
Vital Signs
Temp Pulse Resp BP Pulse Ox
98.1 F 57 18 123/73 95
05/22/24 07:02 05/22/24 04:00 05/22/24 07:02 05/22/24 03:49 05/22/24 07:02
Intake & Output
05/20/24 05/21/24 05/22/24 05/23/24
06:59 06:59 06:59 06:59
Intake Total 1240 / 1240
Balance 1240 / 1240
Physical Exam
Physical Exam
GEN: NAD. AAOx3
HEENT: EOMI, MMM
LUNGS: No audible wheeze
CV: SR on tele
ABD: ND
EXT: No B/L LE edema.
NEURO: Gross non-focal
SKIN: No rash
--- NOTE | 2024-05-22 08:04 | W.DS.TRANS ---
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
-
Discharge Instructions:
Discharge Diagnosis/Procedures Atrial fibrillation post ablation
Diet Low Cholesterol,Diabetic, Carb Controlled
Driving Restrictions No driving for 24 hours
Bathing Restrictions OK to Shower
Blood Work BMP, CBC in 1 week- results to Dr. Donis
Instructions:
Stand-Alone Forms: DC Instructions- Cath/EP Lab
Changes to Home Medications: Yes
Discharge Medications:
DC Medications w/original date entered in [facility]
paroxetine HCl 30 mg tablet 30 mg PO DAILY depression/anxiety 09/23/10
duloxetine 60 mg capsule,delayed release 60 mg PO DAILY Depression 10/27/14
metformin 500 mg tablet 500 mg PO DAILY Diabetes 10/27/14
esomeprazole magnesium 40 mg capsule,delayed release (Nexium) 40 mg PO DAILY Gastrointestinal issue 11/16/20
rivaroxaban 20 mg tablet (Xarelto) 20 mg PO QPM Blood clot prevention/tx ##0 02/01/21
rosuvastatin 40 mg tablet 40 mg PO DAILY High Cholesterol 08/20/22
benzonatate 100 mg capsule 100 mg PO DAILYPRN PRN cough 02/21/23
ergocalciferol (vitamin D2) 1,250 mcg (50,000 unit) capsule (Vitamin D2) 1,250 mcg PO SA Supplement 09/29/23
ferrous sulfate 15 mg iron (75 mg)/mL oral drops 5 ml PO MOWEFR Supplement 09/29/23
furosemide 40 mg tablet 40 mg PO DAILYPRN PRN Edema 09/29/23
methenamine hippurate 1 gram tablet 1 g PO BID Urinary Issue 09/29/23
zhuuehgdet-muthmucovcxxv-yunlwhra 50 mg-300 mg-40 mg capsule 1 cap PO Q6HPRN PRN migraine 03/02/24
cyanocobalamin 2 mg-levomefolate darinel 1.13 mg-pyridoxine 25 mg tablet (Folbic RF) 1 tab PO DAILY Supplement 03/02/24
spironolactone 25 mg tablet 25 mg PO DAILY Fluid retention/BP 03/02/24
atenolol 50 mg tablet 25 mg PO BID Blood Pressure 05/21/24
denosumab 60 mg/mL subcutaneous syringe (Prolia) 60 mg SC [id number] 05/21/24
dofetilide 500 mcg capsule 500 mcg PO BID Arrhythmia 05/21/24
fluticasone 250 mcg-salmeterol 50 mcg/dose blistr powdr for inhalation (Advair Diskus) 1 inh inhalation BID 05/21/24
losartan 25 mg tablet 25 mg PO DAILY #90 tabs 05/21/24
Home Medication Changes
lisinopril stopped
New to losartan
Pending Results: No
[2024-05-22] MEDS: ADVAIR HFA 115/21 MCG INHALER 2 PUFF INH (08:36)
[2024-05-22] MEDS: PROTONIX 40 MG PO (08:49)
[2024-05-22] MEDS: TIKOSYN 500 MCG PO (08:50)
[2024-05-22] MEDS: CRESTOR 40 MG PO (08:50)
[2024-05-22] MEDS: COZAAR 25 MG PO (08:50)
[2024-05-22] MEDS: ALDACTONE 25 MG PO (08:50)
[2024-05-22] MEDS: HIPREX 1 GRAM PO (08:50)
[2024-05-22] MEDS: PAXIL 30 MG PO (08:51)
[2024-05-22] MEDS: GLUCOPHAGE 500 MG PO (08:51)
[2024-05-22] MEDS: CYMBALTA DELAYED RELEASE 60 MG PO (08:51)
[2024-05-22 10:47] VITALS: BP 146/73
[2024-05-22 11:39] LABS: Glycohemoglobin (HgbA1c) 5.8 % (4.0-5.6)
--- NOTE | 2024-05-22 13:05 | PTCARENOTE ---
Discharge instructions reviewed with Pt, she expressed understanding. Pt's to drive her home today.
== END 2024-05-22 13:05 | disposition home or self-care (01) ==
LOC: CATH 08:39
PROVIDERS: Nurse Practitioner; ATTENDING PHYSICIAN Internal Medicine Cardiovascular Disease; FAMILY PHYSICIAN Family Medicine; OTHER PHYSICIAN Internal Medicine Cardiovascular Disease
DX: I48.0 Paroxysmal atrial fibrillation (principal); I11.0 Hypertensive heart disease with heart failure; E11.9 Type 2 diabetes mellitus without complications; Z86.711 Personal history of pulmonary embolism; M35.3 Polymyalgia rheumatica; J45.909 Unspecified asthma, uncomplicated; E78.2 Mixed hyperlipidemia; I48.92 Unspecified atrial flutter; I50.31 Acute diastolic (congestive) heart failure; I25.10 Atherosclerotic heart disease of native coronary artery without angina pectoris; Z88.0 Allergy status to penicillin; Z79.84 Long term (current) use of oral hypoglycemic drugs; Z79.899 Other long term (current) drug therapy; Z79.01 Long term (current) use of anticoagulants; Z88.1 Allergy status to other antibiotic agents; Z88.2 Allergy status to sulfonamides; Z98.890 Other specified postprocedural states; R07.89 Other chest pain
CPT/HCPCS: C1732; C1894; C1769; C1733; C1766; 76937; 80048; 82962; 83036; 83735; 85027; 85347; 93005; 93656; 94640

== ENCOUNTER → 2024-07-17 11:54 | Outpatient (REF) | payer MEDICARE, OTHER, SELFPAY | LOC: DHSLP 11:54 | PROVIDERS: ATTENDING PHYSICIAN Internal Medicine Critical Care Medicine; FAMILY PHYSICIAN Family Medicine | DX: G47.33 Obstructive sleep apnea (adult) (pediatric) (principal); G47.61 Periodic limb movement disorder | CPT/HCPCS: 95810 ==

== ENCOUNTER → 2024-08-05 13:30 | Outpatient (REF) | payer MEDICARE, OTHER, SELFPAY | LOC: RAD 13:30 | PROVIDERS: ATTENDING PHYSICIAN Nurse Practitioner; FAMILY PHYSICIAN Family Medicine | DX: I65.29 Occlusion and stenosis of unspecified carotid artery (principal); R09.89 Other specified symptoms and signs involving the circulatory and respiratory systems | CPT/HCPCS: 93880 ==

== ENCOUNTER → 2024-10-08 10:37 | Outpatient (REF) | payer MEDICARE, OTHER, SELFPAY | LOC: HWRAD 10:37 | PROVIDERS: ATTENDING PHYSICIAN Pain Medicine Interventional Pain Medicine; FAMILY PHYSICIAN Family Medicine | DX: M54.12 Radiculopathy, cervical region (principal) | CPT/HCPCS: 72125 ==

== ENCOUNTER → 2024-11-10 14:32 | Outpatient (REF) | payer MEDICARE, OTHER, SELFPAY | LOC: REG 14:32 | PROVIDERS: ATTENDING PHYSICIAN Podiatrist Foot & Ankle Surgery; FAMILY PHYSICIAN Family Medicine | DX: M19.072 Primary osteoarthritis, left ankle and foot (principal) | CPT/HCPCS: 73630 ==

== ENCOUNTER → 2024-12-08 08:36 | Outpatient (REF) | payer MEDICARE, OTHER, SELFPAY | LOC: DHSLP 08:36 | PROVIDERS: ATTENDING PHYSICIAN Internal Medicine Critical Care Medicine; FAMILY PHYSICIAN Family Medicine | DX: G47.33 Obstructive sleep apnea (adult) (pediatric) (principal) | CPT/HCPCS: 95800 ==

== ENCOUNTER → 2024-12-15 13:42 | Outpatient (REF) | payer MEDICARE, OTHER, SELFPAY | LOC: WDC 13:42 | PROVIDERS: ATTENDING PHYSICIAN Physician Assistant Surgical; FAMILY PHYSICIAN Family Medicine | DX: R92.30 Dense breasts, unspecified (principal) | CPT/HCPCS: 76641 ==

== ENCOUNTER 2024-12-21 23:26 | Emergency (ER) | payer MEDICARE, OTHER, SELFPAY ==
[2024-12-21 23:31] VITALS: BP 143/82
[2024-12-21 23:46] VITALS: BMI 33.1
[2024-12-22] VITALS: BP 114/66
[2024-12-22] MEDS: TYLENOL 650 MG PO (00:28)
[2024-12-22 00:35] LABS: Hematocrit 40.6 % (37.0-47.0); Hemoglobin 14.1 g/dL (12.0-16.0); Mean Corp Hgb Conc. 34.7 g/dL (33.0-37.0); Mean Corpuscular Volume 88.3 fL (81.0-99.0); Nucleated Red Blood Cells % 0 %; Platelet Count 305 10^3/uL (130-400); Red Cell Dist. Width 13.3 % (11.5-14.5)
--- NOTE | 2024-12-22 00:51 | ED.GENMED ---
History of Present Illness
General
Chief Complaint: Skin Problem
Source: patient
Exam Limitations: none
Time Seen by Provider: 12/22/24 00:00
Nursing documentation reviewed up to this point in time: agreed with
History of Present Illness
History of Present Illness:
Patient is a 74-year-old female with history atrial fibrillation and PE on Xarelto, hypertension, hyperlipidemia, diabetes who presents to the emergency department for evaluation of worsening swelling in lower extremities. Patient states she
noticed swelling in both lower legs, left > right last Friday. She was seen at a routine podiatry appointment yesterday morning where she was found to have cellulitis of her bilateral lower extremities. She was started on doxycycline at that time.
Patient states that she has not noticed any improvement in symptoms including redness, pain, and swelling in lower extremities and began with chills, nausea/vomiting today. Patient states she has a general 'flulike' feeling today.
Patient denies any numbness/tingling or weakness in lower extremities. She denies any chest pain or shortness of breath. Patient has no URI symptoms.
Patient reports history of unprovoked pulmonary embolism many years ago and was started on Xarelto. She has been compliant with her medication however did have to take a few days off towards the end of October when she had a spinal stimulator placed.
Past History
Past History
ED Past Medical History: Arrthythmia (Paroxysmal Atrial fibrillation), Asthma, Fibromyalgia, GERD, HTN, Hypercholesterolemia, NIDDM, Psychiatric (Panic attacks) and Other (Migraine headaches, polymyalgia rheumatica; allergic rhinitis, Neuropathy ,
PNA, PE/DVT, Sleep apnea, Pleural effusion, Hiatal hernia, UTi, Iron Def anemia, )
ED Past Surgical History: Cardiac (Cardiac catheterization May 2013 showing mild luminal irregularities.), (X 2), Gynecological (D&E, Hysterectomy), Orthopedic (Carpal tunnel release right hand. Neurostimulator in spine, Left wrist
surgery, Left knee surgery, Fusion L4-L5, ), Tonsilectomy and Other (Implanted stimulator, Cataracts, Uvulectomy)
Social History
Tobacco: Non-smoker
Alcohol: None
Drug: Other (THC lotion)
Personal:
Living: with family
Employment: Retired
Family History
Family History: Hypertension and Cancer (Breast cancer)
Review of Systems
Review of Systems
Allergies reviewed?: Yes
All Other Systems: ROS reviewed and negative except as documented in HPI and ROS
Phy Exam
Physical Exam
Physical Exam:
Vitals: Patient's vital signs are stable. Afebrile
General: Patient is well appearing, no acute distress. Nontoxic appearing
Skin: Warm and dry, no rashes or lesions
Head: Normocephalic, atraumatic
Eyes: Sclera nonicteric.
Throat: Protecting airway
Neck: Normal ROM, no cervical spine tenderness, no meningismus
Cardiac: Regular rate and rhythm, no murmurs.
Pulm: Normal respiratory effort, no wheezes, rales, rhonchi heard on exam
Abdomen: Abdomen soft and nontender
Extremities: Mild erythema and warmth of bilateral shins. 1+ pitting edema of bilateral lower extremities. 2+ palpable DP pulses. Negative Homans' sign.
Neuro: AAOx3. Grossly intact.
Psychiatric: Normal affect.
Course
Orders/Labs/Results
Orders:
Orders
12/22/24 00:07
Acetaminophen [Tylenol] 650 mg PO NOW STA
US Periph Venous LOWER Ext Jae Urgent
Comment:
Reason For Exam: b/l lower extremity pain/swelling hx PE
12/22/24 00:24
COVID-19 Antigen Urgent
Source: Nasal Swab
Complete Blood Count/With Diff Urgent
Comprehensive Metabolic Panel Urgent
Lactic Acid Q4H
Comment: ON ICE, CANCEL 2ND ORDER IF FIRST LACTIC ACID LEVEL <2
Influenza A+B Rapid Molecular Urgent
ALICIA Source: Nasal Swab
Specimen Description:
Abnormal Lab Results
12/22/24
00:24
Absolute Monos (auto) 1.2 H 10^3/uL
(0.1-0.6)
Monocytes % 11.8 H %
(1.7-9.3)
12/22/24 00:24
12/22/24 00:24
Vital Signs
Initial and Last Documented VS:
Initial Vital Signs
Temp Pulse Resp BP Pulse Ox
98.1 F 71 20 143/82 98
12/21/24 23:31 12/21/24 23:31 12/21/24 23:31 12/21/24 23:31 12/21/24 23:31
Last Documented Vital Signs
Temp Pulse Resp BP Pulse Ox
97.8 F 65 22 133/64 100
12/22/24 02:04 12/22/24 02:04 12/22/24 02:04 12/22/24 02:04 12/22/24 02:04
MDM/Problems Addressed
Differential Diagnosis Includes:
Not limited to: Cellulitis, DVT, contact dermatitis, lymphedema, etc.
MDM/Problems Addressed:
74-year-old female w/ history as documented presenting with persistent redness/swelling of bilateral lower extremities currently on doxycycline for suspected cellulitis now with nausea and vomiting. No known fevers. No chest pain, shortness of
breath. Vitals and physical exam as above. Patient well appearing, non-toxic. Abdomen benign. Cardio/pulmonary assessment unremarkable. She does have mild erythema of bilateral shins with 1+ pitting edema. Patient has palpable and equal pulses and
normal sensation.
Ultimately � patient just started antibiotic therapy yesterday � would not consider this a treatment failure thus far. No significant cellulitis on exam. No hx of CHF. Patient is anticoagulated on Xarelto and compliant w/ medication. However given
history of unprovoked PE � will obtain bilateral LE US to rule out DVT. Will check labs, viral studies, and reassess.
Update: Work up in ED unremarkable. She has no leukocytosis or left shift. Chemistry unremarkable with normal lactic acid level. Ultrasound without any evidence of DVT bilaterally. Patient has remained afebriel with normal vital signs. No evidence
of sepsis. DM well controlled.
Do not feel admission for IV antibiotics indicated at this time. Considered possibility that G.I. upset may be related to side effect from doxycycline on an empty stomach. Considered switching anabiotic however patient has multiple allergies and
says she has tolerated doxycycline well in the past.
Discussed taking with food. Advises very close monitoring of symptoms and primary care f/u in a few days to ensure no evidence of spreading cellulitis/worsening infection. Strict return precautions discussed with patient. Patient comfortable with
plan for discharge home and close outpatient monitoring.
Chronic conditions affecting care:
History of PE/DVT on Xarelto, diabetes
*Pulse Oximetry
SaO2: 99
Oxygen Mode of Delivery: Room air
Patient hypoxic: no
*EKG
Interpreted by ED Provider?: NA
*Acetone Button Paster Interpretation
Rate: normal
Interpretation: normal
Heart Rate: 60
Rhythm: sinus
*Critical Care Note
Total Time (30-74mins, 75-104mins- exclusive of procedures): Not Applicable
ED Attending Note
-
Portions of this chart may have been created with voice recognition software.� Occasional wrong word or��sound alike� substitutions may have occurred due to the inherent limitations of voice recognition software.
Discharge Plan
Departure
Patient Disposition: Home (Routine Discharge)
Date of Disposition: 12/22/24
Time of Disposition: 01:47
Patient with high blood pressure during this ER visit?: Yes
Condition: Good
Covid-19: Negative COVID-19
Discharge Problem:
Cellulitis of both lower extremities
Instructions: Cellulitis (Skin Infection), Adult (DC), BLOOD PRESSURE
Prescriptions:
No Action
paroxetine HCl 30 MG tablet
30 mg PO DAILY
metformin 500 MG tablet
500 mg PO DAILY
duloxetine 60 MG capsule,delayed release(DR/EC)
60 mg PO DAILY
esomeprazole magnesium [Nexium] 40 MG capsule,delayed release(DR/EC)
40 mg PO DAILY
Xarelto 20 MG tablet
20 mg PO QPM Qty: 0 0RF
rosuvastatin 40 mg Tablet
40 mg PO DAILY
benzonatate 100 mg Capsule
100 mg PO DAILYPRN PRN (Reason: cough)
ergocalciferol (vitamin D2) [Vitamin D2] 1,250 mcg (50,000 unit) Capsule
1,250 mcg PO SA
methenamine hippurate 1 gram Tablet
1 g PO BID
furosemide 40 mg Tablet
40 mg PO DAILYPRN PRN (Reason: Edema)
ferrous sulfate 15 mg iron (75 mg)/mL Drops
5 ml PO MOWEFR
zaxhzpxoub-yzansqazhurut-ncqe 50-300-40 mg capsule
1 cap PO Q6HPRN PRN (Reason: migraine)
Folbic RF 2-1.13-25 mg tablet
1 tab PO DAILY
spironolactone 25 MG tablet
25 mg PO DAILY
atenolol 50 mg tablet
25 mg PO BID
Prolia 60 mg/mL Syringe
60 mg SC [id number]
fluticasone propion-salmeterol [Advair Diskus] 250-50 mcg/dose Blister With Device
1 inh INHALATION BID
dofetilide 500 mcg capsule
500 mcg PO BID
losartan 25 mg Tablet
25 mg PO DAILY Qty: 90 5RF
Mounjaro 5 mg/0.5 mL Pen Injector
5 mg SC QWEEK
Referrals:
UNKNOWN - PT DOES,NOT KNOW [Unknown Provider]
Activity Restrictions/Additional Instructions:
RETURN TO THE EMERGENCY DEPARTMENT WITH ANY FEVER, CHILLS, WORSENING REDNESS/SWELLING/PAIN IN LOWER EXTREMITIES, NUMBNESS/TINGLING IN LOWER EXTREMITIES, INTRACTABLE NAUSEA/VOMITING, WORSENING CURRENT SYMPTOMS, OR ANY OTHER CONCERNS
- Your viral studies and lab work showed no acute abnormalities in the emergency department. The ultrasound showed no evidence of a blood clot in your lower extremities.
- Please continue to take doxycycline as prescribed. Please do not take doxycycline on an empty stomach as this may be causing some of your GI upset. Continue to elevate and wear compression stockings.
- As discussed�it is important to follow-up with your primary care doctor in a few days for further evaluation/management and to ensure that the symptoms are improving
Monitor your symptoms very closely and return to the emergency department with any acute worsening/new symptoms or any evidence of worsening infection
Interventions
Interventions:
*Risk Screen - Suicide Last Done: 12/21/24 23:31
*General Assessment Last Done: 12/21/24 23:31
*Neglect/Abuse Screening Last Done: 12/21/24 23:31
*ED- Fall Risk Assessment Last Done: 12/21/24 23:31
*ED COVID-19 Vaccine History Last Done: 12/21/24 23:31
*Nursing Disposition Last Done: 12/22/24 02:04
ED-Skin Assessment Last Done: 12/22/24 02:05
Discharge Date and Time
Discharge Date/Time: 12/22/24 02:22
Print Language: GUINEAN
[2024-12-22 01:00] LABS: COVID-19 Antigen Negative (Negative)
[2024-12-22 01:08] LABS: ALT (SGPT) 19 U/L (0-35); AST (SGOT) 29 U/L (14-36); Albumin 4.5 g/dl (3.5-5.0); Alkaline Phosphatase 68 U/L (38-126); Blood Urea Nitrogen 16 mg/dl (7-17); Calcium 9.7 mg/dl (8.4-10.2); Carbon Dioxide 28 mmol/L (22-30); Chloride 99 mmol/L (98-107); Estimated Creatinine Clearance 50 ml/min; Glucose 85 mg/dl (70-99); Potassium 3.6 mmol/L (3.5-5.1); Sodium 138 mmol/L (135-145); Total Protein 7.2 g/dl (6.3-8.2); eGFR 59.86
[2024-12-22 02:00] VITALS: BP 133/64
[2024-12-22 02:02] VITALS: BP 133/64
[2024-12-22 02:04] VITALS: BP 133/64
== END 2024-12-22 02:22 | disposition home or self-care (01) ==
LOC: EMR 23:26
PROVIDERS: Physician Assistant; EMERGENCY PHYSICIAN Student in an Organized Health Care Education/Training Program; FAMILY PHYSICIAN Family Medicine
DX: L03.116 Cellulitis of left lower limb (principal); L03.115 Cellulitis of right lower limb; E11.40 Type 2 diabetes mellitus with diabetic neuropathy, unspecified; E78.00 Pure hypercholesterolemia, unspecified; G47.30 Sleep apnea, unspecified; I10 Essential (primary) hypertension; I48.0 Paroxysmal atrial fibrillation; J45.909 Unspecified asthma, uncomplicated; M35.3 Polymyalgia rheumatica; M79.7 Fibromyalgia; Z79.01 Long term (current) use of anticoagulants; Z86.711 Personal history of pulmonary embolism; Z98.890 Other specified postprocedural states
CPT/HCPCS: 99284; 80053; 83605; 85025; 87502; 87811; 93970

== ENCOUNTER 2024-12-23 18:29 | Inpatient (IN) | payer MEDICARE, OTHER, SELFPAY ==
[2024-12-23] VITALS (30 sets, daily range): BP systolic 78–140; BP diastolic 36–92; PULSE 70–81; BMI 33.9; BMI 33.6
[2024-12-23] MEDS: MAGNESIUM SULFATE 50 IV (15:59)
[2024-12-23 16:04] LABS: Glucose - Point of Care 136 mg/dl (70-99)
[2024-12-23 16:07] LABS: Hematocrit 42.7 % (37.0-47.0); Hemoglobin 14.4 g/dL (12.0-16.0); Mean Corp Hgb Conc. 33.7 g/dL (33.0-37.0); Mean Corpuscular Volume 88.8 fL (81.0-99.0); Nucleated Red Blood Cells % 0 %; Platelet Count 351 10^3/uL (130-400); Red Cell Dist. Width 13.2 % (11.5-14.5)
[2024-12-23 16:18] LABS: INR 2.10; PT 24.0 Sec (11.4-14.6)
[2024-12-23 16:19] LABS: APTT 37.4 Sec (23.4-35.0)
--- NOTE | 2024-12-23 16:25 | CON.CAR ---
Consultation
Consultation Request
Date/Time Consultation Requested: 12/23/2024 at 1615
Date/Time Consultation Performed: 12/23/2024 at 1630
Requesting Provider: Dr. Torres
Performing Provider: Heath Khan MD
Reason for Consultation: Prolonged QT with torsades dinh [facility]inte
Medical History
-
Chief Complaint: Syncope and documented VT with prolonged QT on dofetilide
Past Medical History
Past Medical History: Arrhythmias (Paroxysmal atrial fibrillation status post pulsed field ablation April 2024, on dofetilide), CAD (Subclinical, coronary artery calcification, aortic calcification), GERD, HTN, Hypercholesterolemia, NIDDM,
Psychiatric (Depression) and Other (Mild obstructive sleep apnea with history of UVP, history of pulmonary embolus and DVT, history of asthma, diabetic polyneuropathy, morbid obesity, cerebrovascular atherosclerosis, migraines)
Past Surgical History: Other (Tonsillectomy, , D&C, multiple BLANCA's with prior L3-L4 and L4-L5 laminectomy/fusions, with rhizotomies, carpal tunnel's, right knee arthroscopy, UVP, spinal cord stimulator, hysterectomy with BSO)
Social History
Tobacco: Non-Smoker
Alcohol: None
Drug: None
Personal:
Living: With Family
Employment: Retired
Family History
Family History: Reviewed & Not Pertinent
Allergies / Home Medications
Allergy/AdvReac Type Severity Reaction Status Date / Time
amoxicillin Allergy Severe Unknown Verified 12/22/24 00:00
clindamycin Allergy Severe irritates Verified 12/22/24 00:00
esophagus
nitrofurantoin (From Allergy Severe Unknown Verified 12/22/24 00:00
Macrobid)
Penicillins Allergy Severe Anaphylaxis, Verified 12/22/24 00:00
throat
closes
simvastatin Allergy Severe Rash Verified 12/22/24 00:00
Sulfa (Sulfonamide Allergy Severe Hives - Verified 12/22/24 00:00
Antibiotics) Red rash
cefuroxime (From Ceftin) Allergy Mild Hives Verified 12/22/24 00:00
erythromycin base AdvReac Severe stomch Verified 12/22/24 00:00
pain-tolerates
azithromycin
pollen extracts AdvReac Intermediate stuffy nose Verified 12/22/24 00:00
�Medication �Instructions �Recorded �Confirmed �Type
paroxetine HCl 30 mg tablet 30 mg PO DAILY depression/anxiety 09/23/10 12/23/24 History
duloxetine 60 mg capsule,delayed 60 mg PO DAILY Depression 10/27/14 12/23/24 History
release
metformin 500 mg tablet 500 mg PO DAILY Diabetes 10/27/14 12/23/24 History
esomeprazole magnesium 40 mg 40 mg PO DAILY Gastrointestinal 11/16/20 12/23/24 History
capsule,delayed release (Nexium) issue
rivaroxaban 20 mg tablet (Xarelto) 20 mg PO QPM Blood clot 02/01/21 12/23/24 Rx
prevention/tx ##0
rosuvastatin 40 mg tablet 40 mg PO DAILY High Cholesterol 08/20/22 12/23/24 History
benzonatate 100 mg capsule 100 mg PO DAILYPRN PRN cough 02/21/23 12/23/24 History
ergocalciferol (vitamin D2) 1,250 1,250 mcg PO SA Supplement 09/29/23 12/23/24 History
mcg (50,000 unit) capsule (Vitamin
D2)
furosemide 40 mg tablet 40 mg PO DAILYPRN PRN Edema 09/29/23 12/23/24 History
methenamine hippurate 1 gram tablet 1 g PO BID Urinary Issue 09/29/23 12/23/24 History
ytzylrmlpr-zzkhcfgalpbax-tbopukfv 1 cap PO Q6HPRN PRN migraine 03/02/24 12/23/24 History
50 mg-300 mg-40 mg capsule
cyanocobalamin 2 mg-levomefolate 1 tab PO DAILY Supplement 03/02/24 12/23/24 History
darinel 1.13 mg-pyridoxine 25 mg
tablet (Folbic RF)
spironolactone 25 mg tablet 25 mg PO DAILY Fluid retention/BP 03/02/24 12/23/24 History
denosumab 60 mg/mL subcutaneous 60 mg SC [id number] 05/21/24 12/23/24 History
syringe (Prolia)
dofetilide 500 mcg capsule 500 mcg PO BID Arrhythmia 05/21/24 12/23/24 History
fluticasone 250 mcg-salmeterol 50 1 inh inhalation BID 05/21/24 12/23/24 History
mcg/dose blistr powdr for
inhalation (Advair Diskus)
losartan 25 mg tablet 25 mg PO DAILY #90 tabs 05/21/24 12/23/24 Rx
tirzepatide 5 mg/0.5 mL 5 mg SC QWEEK 12/22/24 12/23/24 History
subcutaneous pen injector
(Mounjaro)
atenolol 25 mg tablet 25 mg PO BID 12/23/24 12/23/24 History
doxycycline hyclate 100 mg tablet 100 mg PO BID 12/23/24 12/23/24 History
Review of Systems
-
All other systems: Negative unless noted
Physical Exam
Vital Signs
Pulse Resp BP Pulse Ox
79 19 140/53 99
12/23/24 16:04 12/23/24 16:04 12/23/24 15:53 12/23/24 16:03
Lab Results
12/23/24 15:55
Physical Exam
General: No Apparent Distress
HEENT: Normocephalic
Respiratory: Clear
Cardiac: Regular Rhythm and Other (No murmurs)
GI: Soft, Non Tender and Normal Bowel Sounds
Musculoskeletal: No Edema
Skin: Warm and Dry
Neuro: AO x 3
Psych: Calm
Impression / Plan
-
Impression:
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
PAF status post pulsed field ablation April 2024
Subclinical CAD/coronary artery calcification
Aortic and cerebrovascular atherosclerosis
GERD
Hypertension
Hypercholesterolemia
Type 2 diabetes with polyneuropathy
Depression
Sleep apnea with history of UVP
Pulmonary embolus DVT
Asthma
Morbid obesity
Migraines
Spinal stenosis
40 pounds weight loss with tirzepatide
Plan:
She presents with documented polymorphic VT that is sustained following the loss of consciousness while at a stop. Her QT interval is dramatically prolonged on dofetilide.
It may be that dramatic weight loss with tirzepatide with anorexia have contributed to QT interval prolongation.
She has received magnesium, and is now on dopamine in an effort to raise the heart rate and shorten QT interval.
Dofetilide has been discontinued, and Cymbalta and Paxil are now on hold.
I'm hopeful that her QT interval will be dramatically improved within 24 hours dopamine can be discontinued.
Data Reviewed
-
EKG: Tracing Personally Visualized and interpreted (Sinus rhythm with profound QT prolongation and nonspecific ST and T changes) and Other (Sustained polymorphic VT obtained on rhythm strip in the field, consistent with Torsades)
Medical Tests (Nuc Med, Echo etc): Image Personally Visualized and interpreted (Echo 12/17/2023: EF 57%, normal right ventricle, normal atria, MAC, trace MR, pulmonary artery systolic pressure is 24, mild aortic sclerosis)
Labs: Labs Reviewed by me (White count 13.6, hemoglobin 14.4, electrolytes pending, troponin undetectable)
Old Records: Reviewed
[2024-12-23] MEDS: NSS 500 IV (16:26)
[2024-12-23 16:28] LABS: Troponin I < 0.012 ng/ml
[2024-12-23 16:46] LABS: ALT (SGPT) 19 U/L (0-35); AST (SGOT) 37 U/L (14-36); Albumin 4.2 g/dl (3.5-5.0); Alkaline Phosphatase 64 U/L (38-126); Blood Urea Nitrogen 25 mg/dl (7-17); Calcium 9.1 mg/dl (8.4-10.2); Carbon Dioxide 20 mmol/L (22-30); Chloride 99 mmol/L (98-107); Glucose 128 mg/dl (70-99); Magnesium 2.2 mg/dl (1.6-2.3); Potassium 2.9 mmol/L (3.5-5.1); Sodium 134 mmol/L (135-145); Total Protein 6.6 g/dl (6.3-8.2); eGFR > 60.00
[2024-12-23] MEDS: DOPamine 400 MG 250 IV ×2 (16:54→21:34)
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
[2024-12-23] MEDS: KCL 270 MEQ IV (17:04)
[2024-12-23] MEDS: KCL ELIXIR 40 MEQ PO (17:04)
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
[2024-12-23] MEDS: NSS 1000 IV ×2 (17:45→20:10)
[2024-12-23] MEDS: XARELTO 20 MG PO (18:29)
--- NOTE | 2024-12-23 19:30 | PTCARENOTE ---
Pt received from ED awake alert and oriented. Assisted into bed and made comfortable. Pt on dopamine gtt at 20mcg/kg/min. Heart rate high 70s/low 80s. CHG bath done. Assessment as charted.
[2024-12-23] MEDS: NSS IV (20:10)
[2024-12-23] MEDS: HIPREX 1 GRAM PO (20:13)
[2024-12-23] MEDS: ADVAIR HFA 115/21 MCG INHALER 2 PUFF INH (20:43)
[2024-12-23] MEDS: NSS (PRESERVATIVE FREE) 8 ML IV (21:21)
[2024-12-23] MEDS: PEPCID 20 MG IV (21:21)
[2024-12-23] MEDS: TIGAN 200 MG IM (21:26)
--- NOTE | 2024-12-23 22:55 | PTCARENOTE ---
Pt c/o nausea and then started vomiting. Pt med with pepcid IV and tigan IM. Pt states she has had n/v for past 4 days since she started doxycycline for cellulitis. Will continue to monitor.
[2024-12-23 23:05] LABS: Glucose - Point of Care 166 mg/dl (70-99)
[2024-12-23 23:06] LABS: Potassium 4.2 mmol/L (3.5-5.1)
[2024-12-23 23:14] LABS: Troponin I 0.122 ng/ml
[2024-12-23] MEDS: MAGNESIUM SULFATE 100 IV (23:21)
[2024-12-23 23:32] LABS: Magnesium 2.0 mg/dl (1.6-2.3)
--- NOTE | 2024-12-23 23:45 | PTCARENOTE ---
Pt with ectopy now-ventricular bigem, runs v-tach. Pt then had approx 15 second episode of vtach with unresponsiveness which stopped without intervention and pt awake as soon as VT stopped. Mag rider and potassium rider given. Defib pads on pt.
[2024-12-24] VITALS (36 sets, daily range): BP systolic 93–145; BP diastolic 47–107; PULSE 76–83; BMI 34.1
[2024-12-24] MEDS: KCL 160 MEQ IV
--- NOTE | 2024-12-24 00:33 | PTCARENOTE ---
Pt remains in ventricular bigeminy but not having runs of vtach at present.
[2024-12-24] MEDS: DOPamine 400 MG 250 IV ×6 (01:10→21:45)
[2024-12-24 04:02] LABS: Hematocrit 39.9 % (37.0-47.0); Hemoglobin 14.1 g/dL (12.0-16.0); Mean Corp Hgb Conc. 35.3 g/dL (33.0-37.0); Mean Corpuscular Volume 86.4 fL (81.0-99.0); Nucleated Red Blood Cells % 0 %; Platelet Count 305 10^3/uL (130-400); Red Cell Dist. Width 12.8 % (11.5-14.5)
[2024-12-24 04:28] LABS: Blood Urea Nitrogen 23 mg/dl (7-17); Calcium 8.7 mg/dl (8.4-10.2); Carbon Dioxide 21 mmol/L (22-30); Chloride 104 mmol/L (98-107); Estimated Creatinine Clearance 73 ml/min; Glucose 166 mg/dl (70-99); Magnesium 2.2 mg/dl (1.6-2.3); Potassium 3.8 mmol/L (3.5-5.1); Sodium 135 mmol/L (135-145); eGFR > 60.00
[2024-12-24 04:38] LABS: Troponin I 0.137 ng/ml
[2024-12-24] MEDS: NSS 1000 IV ×3 (04:52→20:35)
[2024-12-24] MEDS: MAGNESIUM SULFATE 100 IV (04:53)
[2024-12-24] MEDS: KCL 270 MEQ IV (04:53)
[2024-12-24] MEDS: TIGAN 200 MG IM (05:09)
--- NOTE | 2024-12-24 05:36 | PTCARENOTE ---
Pt vomited again approx 200 ml. Tigan IM given. Potassium and mag riders hung. Remains on dopamine at 20mcg/kg/min.
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
--- NOTE | 2024-12-24 07:30 | PTCARENOTE ---
Received patient A&Ox4, follow commands, on 2L NC, NSR with unifocal PVCs with Prolonged QTc, BP WNL, on Dopamine Drip @20mcg/kg/min and KRider repletion, Placed Purewick, pending BMP and Troponin recheck.
[2024-12-24] MEDS: ADVAIR HFA 115/21 MCG INHALER 2 PUFF INH ×2 (07:38→19:22)
[2024-12-24] MEDS: HIPREX 1 GRAM PO ×2 (08:22→20:31)
[2024-12-24] MEDS: CRESTOR 40 MG PO (08:23)
[2024-12-24] MEDS: PROTONIX 40 MG PO (08:23)
[2024-12-24 08:32] LABS: Glucose - Point of Care 150 mg/dl (70-99)
[2024-12-24 08:54] LABS: Glycohemoglobin (HgbA1c) 5.2 % (4.0-5.6)
--- NOTE | 2024-12-24 08:54 | W.PN.CARDCBS ---
Today's Communication / Plan
-
Continue dopamine
Follow QTc
Continue to avoid QTc prolonging medications
Echo pending
Impression / Plan
-
Impression:
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
PAF status post pulsed field ablation April 2024
Subclinical CAD/coronary artery calcification
Aortic and cerebrovascular atherosclerosis
GERD
Hypertension
Hypercholesterolemia
Type 2 diabetes with polyneuropathy
Depression
Sleep apnea with history of UVP
Pulmonary embolus DVT
Asthma
Morbid obesity
Migraines
Spinal stenosis
40 pounds weight loss with tirzepatide
Plan:
She had a 7-second run of polymorphic T, and her QT intervals remains markedly prolonged but overall her EKG is improving, and ectopy is infrequent.
Ironically, on high-dose dopamine she is still relatively hypotensive, and her rate is not rapid.
Continue to hold duloxetine, paroxetine, dofetilide, and Mounjaro. There are no obvious interactions between Mounjaro and dofetilide, though Mounjaro does delay gastric emptying and could affect absorption of oral medications.
Continue dopamine. She never received lidocaine.
Await echocardiogram.
Troponin elevation is likely a nonischemic myocardial injury, and probably does not need to be pursued further. We could consider an outpatient sestamibi study, and September 2022 she had a sestamibi study that was normal.
Clinical summary: Pleasant 74-year-old woman admitted with documented polymorphic VT and syncope with dramatically prolonged QT interval. History of PVI (PFA) April 2024, treated with Tikosyn. Recently started on Mounjaro with 40 pounds weight
loss.
PMH: Subclinical CAD by coronary artery calcification, asthma, diabetes, diabetic polyneuropathy, GERD, hypertension, hypercholesterolemia, depression, aortic and cerebrovascular atherosclerosis, severe degenerative disc disease with multiple
procedures and history of spinal cord stimulator, sleep apnea status post UVPP
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
Subjective
Date of Service: December 24, 2024:
She offers no complaints.
Medications: Spironolactone 25 mg a day, dopamine, pantoprazole, Advair, phentermine, rosuvastatin, rivaroxaban 20, insulin as needed
126/60, pulse 82, respiratory rate 16, afebrile, weight is 84.5 kg, up 1.2 kg, head neck exam unremarkable, lungs are clear, regular rate rhythm without murmurs or gallops, abdomen and extremities benign pulses intact
ECG today sinus rhythm with marked QT prolongation, but improved
White count 17, hemoglobin 14.1, last magnesium 2.2, troponin 0.137
She had 7 seconds of polymorphic VT and occasional 3 beat runs.
Objective
Labs:
12/24/24 03:32
Labs
Hgb 14.1 g/dL (12.0-16.0) 12/24/24 03:32
Hct 39.9 % (37.0-47.0) 12/24/24 03:32
Plt Count 305 10^3/uL (130-400) 12/24/24 03:32
PT 24.0 Sec (11.4-14.6) H 12/23/24 15:55
INR 2.10 12/23/24 15:55
APTT 37.4 Sec (23.4-35.0) H 12/23/24 15:55
Sodium 135 mmol/L (135-145) 12/24/24 03:32
Sodium Cancelled 12/24/24 03:32
Potassium 3.8 mmol/L (3.5-5.1) 12/24/24 03:32
Potassium Cancelled 12/24/24 03:32
BUN 23 mg/dl (7-17) H 12/24/24 03:32
BUN Cancelled 12/24/24 03:32
Creatinine 0.7 mg/dL (0.6-1.0) 12/24/24 03:32
Creatinine Cancelled 12/24/24 03:32
Glucose 166 mg/dl (70-99) H 12/24/24 03:32
Glucose Cancelled 12/24/24 03:32
Troponins
12/23/24 12/23/24 12/24/24
15:55 22:41 03:32
Troponin I < 0.012 0.122 H* D 0.137 H*
Vital Signs and I&O:
Vital Signs
Temp Pulse Resp BP Pulse Ox
36.7 C 82 16 126/60 97
12/24/24 03:11 12/24/24 07:42 12/24/24 07:42 12/24/24 04:00 12/24/24 07:42
Vital Signs
Temp Pulse Resp BP Pulse Ox
36.7 C 82 16 126/60 97
12/24/24 03:11 12/24/24 07:42 12/24/24 07:42 12/24/24 04:00 12/24/24 07:42
Intake & Output
12/22/24 12/23/24 12/24/24 12/25/24
07:59 07:59 07:59 07:59
Intake Total 3219.1 / 321.1
Output Total 1150 / 1150
Balance / 2068.
Physical Exam
Physical Exam
See above
--- NOTE | 2024-12-24 09:14 | W.PN.HOSP.TC ---
Addendum entered and electronically signed by Eduardo Lee MD 12/24/24 21:17:
Attending Addendum-
I saw and evaluated the patient. I reviewed the resident�s note and agree with findings and plan as documented in the resident�s note. Sub: Had 7 second run of PM VT, self resolved, no sxs. Patient seen with daughter. 'I didnt feel a thing' Denies
CP palps syncope dizziness. Full 12 point ROS reviewed and negative except as documented Exam: Vitals reviewed in chart GEN-NAD heart RRR no MRG Lungs CTA B/L Abd soft NT ND pos BS LE no edema
Plan:
#Prolonged QTc and Torsades/ Polymorphic Ventricular Tachycardia
-cont care in ICU
-s/p IV Mag
-IV Dopamine gtt initiated to keep HR > 90 to possibly shorten QT interval
-Cardiology input appreciated
-hold Tikosyn
-trend Troponin
-TTE-12/23-Left ventricular ejection fraction is normal with an ejection fraction of 60%
# Hypokalemia
-replete aggressively
-goal K> 4
-check mag
# NIMI- trend trops
# Nausea- use tigan
# Leukocytosis-stress induced s/p CPR- trend
# Hx Afib
-s/p Ablation
-hold Tikosyn as above
-continue Xarelto
-hold Atenolol
# Hx PE
-continue Xarelto (OK to avoid heparin gtt per Cardiology)
# Essential HTN
-hold PUSH CONNECTOR ASSEMBLER Atenolol, Losartan for now
# Depression
-hold PUSH CONNECTOR ASSEMBLER Duloxetine (although less effect on QTc) and PUSH CONNECTOR ASSEMBLER Paroxetine - patient aware
# HFpEF
-hold PUSH CONNECTOR ASSEMBLER Lasix with low K
-Spironolactone
#NIDDM
-hold Metformin
-stop Mounjaro - stop on DC as patient with hardly any PO intake
-ISS low
#HLD- cont crestor
DVT PPx - xarelto
ACP
Patient consented to discuss, was with daughter, time spent explanation of advance directives, changes in health status, patient�s health care wishes if the patient becomes unable to make health decisions, goals of care, code status, and prognosis
'of course i want everything done, nicolas got things to do'- 16 minutes
CC Note
Due to a high probability of clinically significant, life-threatening deterioration, the patient required a high level of preparedness to intervene emergently. I personally spent this critical care time directly and personally managing the patient.
This critical care time included obtaining a history; examining the patient; ordering and review of studies and STAT labs; arranging urgent treatment with development of a management plan; evaluation of patient's response to treatment; reassessment;
and, discussions with other providers.
This critical care time was performed to assess and manage the high probability of imminent, life-threatening deterioration that could result in multi-organ failure. It was exclusive of separately billable procedures and treating other patients and
teaching time. Total time documented is also exclusive of any additional time listed that was spent in advance care planning discussion
Total critical care time: Approximately 31 minutes
Original Note:
Today's Communication/Plan
-
Consult Cardiology regarding dopamine ggt- PICC line?
Monitor QTc
Assessment / Plan
Assessment / Plan
#Arrhythmia, prolonged QTc and Torsades de pointes/ Ventricular tachycardia
-discontinue Tikasyn
-IV Magnesium
-Continue Dopamine gtt
-trend troponin levels
-avoid QTc prolonging meds
-Following QTc
-consult cardiology regarding dopamin ggt
-ECHO
#Hypokalemia
-monitor potassium level
-replete if low
#Nausea
-Tigan 200mg Q6h prn
#History of afib
-Continue Xarelto
-Hold Tikosyn
#Diabetes Mellitus
-Stop Mounjaro
-Insulin Sliding Scale-low resistance
#History of Cellulitis
Anticipated Discharge: 24 - 48 hours
Subjective/Interval History
-
Date of Service: December 24, 2024
Patient is sitting on her bed comfortable and has no complaints. Overnight once she felt sudden warm surge sensation followed by a syncopal episode. EKG showed she has Ventricular tachycardia (torsades de pointes). She mentions vomiting 3 times last
night. Denies SOB, Chest pain.
Objective Data
-
Labs:
Laboratory Results
12/23/24 12/24/24 12/24/24
22:41 03:32 03:32
WBC 17.0 H
Hgb 14.1
Hct 39.9
Plt Count 305
Sodium 135 Cancelled
Potassium 4.2 D 3.8
Chloride
Carbon Dioxide
BUN
Creatinine
Glucose
Calcium
12/24/24 12/24/24 12/24/24
03:32 03:32 03:32
WBC
Hgb
Hct
Plt Count
Sodium
Potassium Cancelled
Chloride 104 Cancelled
Carbon Dioxide 21 L Cancelled
BUN 23 H
Creatinine
Glucose
Calcium
12/24/24 12/24/24 12/24/24
03:32 03:32 03:32
WBC
Hgb
Hct
Plt Count
Sodium
Potassium
Chloride
Carbon Dioxide
BUN Cancelled
Creatinine 0.7 Cancelled
Glucose 166 H Cancelled
Calcium 8.7
12/24/24 12/24/24
03:32 09:00
WBC
Hgb
Hct
Plt Count
Sodium Pending
Potassium Pending
Chloride Pending
Carbon Dioxide Pending
BUN Pending
Creatinine Pending
Glucose Pending
Calcium Cancelled Pending
Vital Signs:
Vital Signs
Temp Pulse Resp BP Pulse Ox
98.1 F 82 16 126/60 97
12/24/24 03:11 12/24/24 07:42 12/24/24 07:42 12/24/24 04:00 12/24/24 07:42
I&O
12/23/24 12/24/24 12/25/24
06:59 06:59 06:59
Intake Total 2963.6 / 3219.1 255.5 / 255.5
Output Total 1150 / 1150
Balance 1813.6 / 9.1 255.5 / 255.5
Review of Systems
-
History Source: Patient
Constitutional: Reports No Symptoms
EENT: Reports No Symptoms Reported
Respiratory: Reports No Symptoms
Cardiac: Reports No Symptoms
Abdomen/GI: Reports No Symptoms
Breast: Reports No Symptoms
Genitourinary: Reports No Symptoms
Musculoskeletal: Reports Muscle Pain (bilateral leg pain) and Edema (both legs)
Skin: Reports No Symptoms
Neuro: Reports No Symptoms
Endocrine: Reports No Symptoms
Physical Exam
-
General: Well Developed and Well Nourished
HEENT: Normocephalic and Atraumatic
Respiratory: Clear to Auscultation
Cardiac: S1/S2
Breast: Deferred by me
GI: Soft, Nontender and Nondistended
Genito-urinary: Deferred by me
Musculoskeletal: Edema, Right Lower Extrem and Edema, Left Lower Extrem
Skin: Warm
Neuro: AO x 3
Psych: Calm
[2024-12-24 10:27] LABS: Troponin I 0.094 ng/ml
[2024-12-24 10:31] LABS: Blood Urea Nitrogen 17 mg/dl (7-17); Calcium 8.1 mg/dl (8.4-10.2); Carbon Dioxide 22 mmol/L (22-30); Chloride 106 mmol/L (98-107); Estimated Creatinine Clearance 85 ml/min; Glucose 152 mg/dl (70-99); Magnesium 2.2 mg/dl (1.6-2.3); Potassium 4.4 mmol/L (3.5-5.1); Sodium 134 mmol/L (135-145); eGFR > 60.00
--- NOTE | 2024-12-24 12:07 | CM ---
Cardiac arrest: Initial assessment completed with patient with daughter in room. Patient lives with her and 100 year old mother in a 2 story home plus basement with B/B on 2nd and 1/2 bath on , 2 steps to enter. 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
independent in ADL's and ambulation, drives. Recently she has been using a RW for distance ambulation due to knee pain. She is scheduled for a knee replacement on 12/19/24. She usually uses a SPC when out of the home. Other DME in home is SPC,
RTS, RW, W/CH, stair lift and she has a spinal cord stimulator. No current in-home services. Has had [facility]-VN in the past. Does have a HC-POA. No VA benefits. No psychiatric hospitalizations. PCP is Dr. Cecil Lerma. Pharmacy is [facility] on [address]
in [place]. Discharge POC: Anticipate home with no needs. Possible HH RN.
--- NOTE | 2024-12-24 12:11 | PTCARENOTE ---
Reassessed the patient, A&Ox4, on RA, NSR in 80s, BP WNL, continue Dopamine drip, did patient care for stress incontinence. PICC line insertion pending for continuous Dopamine infusion.
[2024-12-24] MEDS: SENOKOT-S 1 TABLET PO (12:21)
[2024-12-24] MEDS: FIORICET PO (12:24)
[2024-12-24 12:30] LABS: Glucose - Point of Care 142 mg/dl (70-99)
[2024-12-24] MEDS: FIORICET 1 TAB PO ×2 (13:06→22:15)
--- NOTE | 2024-12-24 13:20 | PTCARENOTE ---
Patient had PRN Fioricet for Migraine @12:24, then she gagged and had a small vomit with the medication out. Wasted PRN Fioricet with another RN.
--- NOTE | 2024-12-24 16:42 | PTCARENOTE ---
Reassessed the patient, no changes from previous assessments. Continue Dopamine @20mcg/kg/min and Continue QTc monitoring.
[2024-12-24] MEDS: XARELTO 20 MG PO (17:43)
[2024-12-24 17:53] LABS: Glucose - Point of Care 121 mg/dl (70-99)
--- NOTE | 2024-12-24 20:00 | PTCARENOTE ---
assumed care of patient at 1900, patient alert and oriented X 3 follows all commands, good bilateral Strength, in normal sinus rythym. Om Dopamine at 20, heart rate in 80's. +Pulses, edema in lower extremities. O2 sat 95 % on room air, +BS, poor
appetite 25% of dinner finished, see workflow for assessment details
--- NOTE | 2024-12-24 22:50 | PTCARENOTE ---
patient alert and oriented, follows command, has headache on Left of head migraine medication given. CHG bath completed, Dopamine remains at 20.
[2024-12-25] VITALS (37 sets, daily range): BP systolic 73–148; BP diastolic 44–84; PULSE 76–95; BMI 34.1
[2024-12-25] MEDS: DOPamine 400 MG 250 IV ×4 (01:48→15:45)
[2024-12-25 03:52] LABS: Hematocrit 37.9 % (37.0-47.0); Hemoglobin 13.1 g/dL (12.0-16.0); Mean Corp Hgb Conc. 34.6 g/dL (33.0-37.0); Mean Corpuscular Volume 88.1 fL (81.0-99.0); Platelet Count 248 10^3/uL (130-400); Red Cell Dist. Width 13.0 % (11.5-14.5)
[2024-12-25 04:17] LABS: ALT (SGPT) 14 U/L (0-35); AST (SGOT) 20 U/L (14-36); Albumin 3.4 g/dl (3.5-5.0); Alkaline Phosphatase 68 U/L (38-126); Blood Urea Nitrogen 8 mg/dl (7-17); Calcium 7.9 mg/dl (8.4-10.2); Carbon Dioxide 25 mmol/L (22-30); Chloride 100 mmol/L (98-107); Estimated Creatinine Clearance 85 ml/min; Glucose 378 mg/dl (70-99); Magnesium 1.7 mg/dl (1.6-2.3); Potassium 3.5 mmol/L (3.5-5.1); Sodium 130 mmol/L (135-145); Total Protein 5.8 g/dl (6.3-8.2); eGFR > 60.00
[2024-12-25] MEDS: KCL 260 MEQ IV (05:30)
[2024-12-25] MEDS: MAGNESIUM SULFATE 102 GRAMS IV (05:31)
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
[2024-12-25] MEDS: ADVAIR HFA 115/21 MCG INHALER 2 PUFF INH ×2 (07:38→19:12)
[2024-12-25 07:54] LABS: Glucose - Point of Care 127 mg/dl (70-99)
--- NOTE | 2024-12-25 08:00 | PTCARENOTE ---
Received patient from caustic cresylate shift superintendent RN. Patient is AAOx4, pleasant cooperative. on 2Lnasal cannula. Sinus rhythm on monitor. Patient has diabetic diet and purewick in place. Dopamine gtt infusing into right double lumen picc. plan to wean per
cardiology. assessment as charted, orders reviewed.
--- NOTE | 2024-12-25 08:03 | W.PN.HOSP.TC ---
Addendum entered and electronically signed by Shaina Rivas MD 12/25/24 15:12:
I saw and evaluated the patient independently. I reviewed the resident�s note and agree with findings and plan as documented by Dr. Buchanan.
GENERAL: well developed, well nourished, female in no apparent distress
HEENT: NC/AT--O2 NC [address]
HEART: regular rate and rhythm, +S1, +S2
LUNGS : clear to auscultation bilaterally
ABDOM: soft, nontender, nondistended, + bowel sounds
EXT: no cyanosis, clubbing, or edema
NEUROLOGIC: grossly intact
SKIN: bruises all over
Arrhythmia, prolonged QTc and Torsades de pointes/ Ventricular tachycardia requiring CPR as outpt--multiple meds as possible triggers (atenolol, Tikosyn, duloxetine, paroxetine, unclear if any effects from Mounjaro?)--would stop all meds if
able--keep mag > 2.0 and potassium > 4--wean dopamine to off--unclear if pt candidate for pacer/defibrillator?--would defer to cards---ECHO- LVEF 60%- Mild mitral valve regurgitation. Trace tricuspid regurgitation. no sign change from 2023 records
Hypokalemia--monitor potassium-- goal >4--check mg goal>2--replete if low
Nausea--Tigan 200mg Q6h prn--watch antiemetics with long QT
History of paroxysmal afib--s/p ablation--stop Tikosyn--cont Xarelto
Type 2 Diabetes Mellitus--Stop Mounjaro--Insulin Sliding Scale-low resistance --restart outpt metformin
Hyperlipidemia-cont crestor
DVT proph- xarelto
code status--FULL CODE
Original Note:
Today's Communication/Plan
-
Metformin
Electrolyte replete
Assessment / Plan
Assessment / Plan
#Arrhythmia, prolonged QTc and Torsades de pointes/ Ventricular tachycardia
-discontinue Tikasyn
-IV Magnesium
-Continue Dopamine gtt
-trend troponin levels
-avoid QTc prolonging meds
-Following QTc
-consult cardiology regarding dopamin ggt
-ECHO- LVEF 60%- Mild mitral valve regurgitation. Trace tricuspid regurgitation. no sign change from 2023 records
-12/24-EKG- QTcB Int : 667 ms- improving
#Hypokalemia
-monitor potassium-- goal >4
-check mg goal>2
-replete if low
#Nausea
-Tigan 200mg Q6h prn
#History of afib
-Continue Xarelto
-Hold Tikosyn
#Leukocytosis
-CBC, CMP, CRP
-
#Diabetes Mellitus
-Stop Mounjaro
-Insulin Sliding Scale-low resistance
-Hyperglycemia- start Metformin
#History of Cellulitis
#Hyperlipidemia
-con crestor
DVT ppx- xarelto
Anticipated Discharge: > 48 hours
Subjective/Interval History
-
Date of Service: December 25, 2024
She is sitting on her bed eating her food. She has no complaints. Denies palpitations, chest pain.
Objective Data
-
Labs:
Laboratory Results
12/25/24
03:37
WBC 12.7 H
Hgb 13.1
Hct 37.9
Plt Count 248
Sodium 130 L
Potassium 3.5
Chloride 100
Carbon Dioxide 25
BUN 8
Creatinine 0.4 L
Glucose 378 H
Calcium 7.9 L
Total Bilirubin 1.4 H
AST 20
ALT 14
Alkaline Phosphatase 68
Vital Signs:
Vital Signs
Temp Pulse Resp BP Pulse Ox
97.8 F 92 18 135/78 98
12/25/24 07:53 12/25/24 07:41 12/25/24 07:41 12/25/24 06:00 12/25/24 07:41
I&O
12/24/24 12/25/24 12/26/24
06:59 06:59 06:59
Intake Total 2963.6 / 3219.2 4955.1 / 4955.1
Output Total 1150 / 1150 4300 / 4300
Balance 1813.6 / 2069.2 655.1 / 655.1
Review of Systems
-
History Source: Patient
Constitutional: Reports No Symptoms
EENT: Reports No Symptoms Reported
Respiratory: Reports No Symptoms
Cardiac: Reports No Symptoms
Abdomen/GI: Reports No Symptoms
Breast: Reports No Symptoms
Genitourinary: Reports No Symptoms
Musculoskeletal: Reports Muscle Pain (bilateral leg pain) and Edema (both legs)
Skin: Reports No Symptoms
Neuro: Reports No Symptoms
Endocrine: Reports No Symptoms
Physical Exam
-
General: Well Developed and Well Nourished
HEENT: Normocephalic and Atraumatic
Respiratory: Clear to Auscultation
Cardiac: S1/S2
Breast: Deferred by me
GI: Soft, Nontender and Nondistended
Genito-urinary: Deferred by me
Musculoskeletal: Edema, Right Lower Extrem and Edema, Left Lower Extrem
Skin: Warm
Neuro: AO x 3
Psych: Calm
--- NOTE | 2024-12-25 08:28 | W.PN.CARDCBS ---
Today's Communication / Plan
-
Overall doing better, QT interval improving
Wean dopamine
Continue to hold paroxetine and Cymbalta
Will keep in ICU today
Impression / Plan
-
Impression:
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
PAF status post pulsed field ablation April 2024
Subclinical CAD/coronary artery calcification
Aortic and cerebrovascular atherosclerosis
GERD
Hypertension
Hypercholesterolemia
Type 2 diabetes with polyneuropathy
Depression
Sleep apnea with history of UVP
Pulmonary embolus DVT
Asthma
Morbid obesity
Migraines
Spinal stenosis
40 pounds weight loss with tirzepatide
Echo 12/24/2024: EF 60%, normal RV and normal atria, mild MR
Plan:
She looks much better today.
No further VT. No ventricular ectopy.
Her QT interval is still prolonged, but significantly shorter than yesterday.
We will wean dopamine today.
Heart rate is better, up to 90 on dopamine.
Sodium is 130, defer to primary service, likely suspect will resolve.
Her echocardiogram is essentially normal.
Troponin is dropping, she had normal sestamibi perfusion in 2022, so I am not certain that we need to repeat her stress test.
Still off Paxil and would continue to hold paroxetine and Cymbalta, may need to get input from her psychiatrist as to best management strategy for depression. These drugs might be options off dofetilide.
Will keep in ICU today, repeat EKG in AM.
Clinical summary: Pleasant 74-year-old woman admitted with documented polymorphic VT and syncope with dramatically prolonged QT interval. History of PVI (PFA) April 2024, treated with Tikosyn. Recently started on Mounjaro with 40 pounds weight
loss.
PMH: Subclinical CAD by coronary artery calcification, asthma, diabetes, diabetic polyneuropathy, GERD, hypertension, hypercholesterolemia, depression, aortic and cerebrovascular atherosclerosis, severe degenerative disc disease with multiple
procedures and history of spinal cord stimulator, sleep apnea status post UVPP
Progress Note - Negotiations Director
Subjective
Date of Service: December 25, 2024:
Current meds: Dopamine at 20 mcg/kg/h, pantoprazole 40 mg a day, Advair, methenamine, rosuvastatin 40 mg a day, rivaroxaban 20 mg a day, spironolactone 25 mg a day on hold,
135/78, pulse 92, respiratory rate 18, afebrile, head neck exam unremarkable, lungs are clear, regular rate and rhythm without murmurs, abdomen benign extremities without clubbing cyanosis or edema
ECG today shows substantial improvement in QT interval, though still prolonged, heart rate 81 beats per minutes
White count is 0.7, hemoglobin is 13.1, sodium is 130, potassium is 3.5, magnesium is 1.7, bilirubin is 1.4, troponin is 0.094
Objective
Labs:
12/25/24 03:37
12/25/24 03:37
Labs
Hgb 13.1 g/dL (12.0-16.0) 12/25/24 03:37
Hct 37.9 % (37.0-47.0) 12/25/24 03:37
Plt Count 248 10^3/uL (130-400) 12/25/24 03:37
PT 24.0 Sec (11.4-14.6) H 12/23/24 15:55
INR 2.10 12/23/24 15:55
APTT 37.4 Sec (23.4-35.0) H 12/23/24 15:55
Sodium 130 mmol/L (135-145) L 12/25/24 03:37
Potassium 3.5 mmol/L (3.5-5.1) 12/25/24 03:37
BUN 8 mg/dl (7-17) 12/25/24 03:37
Creatinine 0.4 mg/dL (0.6-1.0) L 12/25/24 03:37
Glucose 378 mg/dl (70-99) H 12/25/24 03:37
Troponins
12/23/24 12/23/24 12/24/24
15:55 22:41 03:32
Troponin I < 0.012 0.122 H* D 0.137 H*
12/24/24
09:32
Troponin I 0.094 H* D
Vital Signs and I&O:
Vital Signs
Temp Pulse Resp BP Pulse Ox
36.6 C 92 18 135/78 98
12/25/24 07:53 12/25/24 07:41 12/25/24 07:41 12/25/24 06:00 12/25/24 07:41
Vital Signs
Temp Pulse Resp BP Pulse Ox
36.6 C 92 18 135/78 98
12/25/24 07:53 12/25/24 07:41 12/25/24 07:41 12/25/24 06:00 12/25/24 07:41
Intake & Output
12/23/24 12/24/24 12/25/24 12/26/24
07:59 07:59 07:59 07:59
Intake Total 3219.2 / 3714.8 4699.5 / 4699.5
Output Total 1150 / 1350 4300 / 4300
Balance 2069.2 / 2364.8 399.5 / 399.5
Physical Exam
Physical Exam
See above
[2024-12-25] MEDS: HIPREX 1 GRAM PO ×2 (08:48→19:28)
[2024-12-25] MEDS: CRESTOR 40 MG PO (08:48)
[2024-12-25] MEDS: PROTONIX 40 MG PO (08:48)
[2024-12-25 12:00] LABS: Glucose - Point of Care 146 mg/dl (70-99)
[2024-12-25] MEDS: NSS 500 IV ×2 (14:38→19:28)
--- NOTE | 2024-12-25 14:43 | CHAP ---
Visited [place] at 1pm. She was in good spirits and said she's 'grupo to be here.' Has good support from and daughters. She teared up when talking about what she's been through, and she welcomed prayer. Emotional and spiritual support
provided, along with assurance of our on-going availability.
--- NOTE | 2024-12-25 14:59 | PTCARENOTE ---
Patient dropping pressure with weaning of dopamine, called Dr. Khan, 500cc bolus given
[2024-12-25 16:32] LABS: Blood Urea Nitrogen 8 mg/dl (7-17); Calcium 8.0 mg/dl (8.4-10.2); Carbon Dioxide 24 mmol/L (22-30); Chloride 107 mmol/L (98-107); Estimated Creatinine Clearance 85 ml/min; Glucose 112 mg/dl (70-99); Magnesium 1.7 mg/dl (1.6-2.3); Potassium 4.0 mmol/L (3.5-5.1); Sodium 136 mmol/L (135-145); eGFR > 60.00
--- NOTE | 2024-12-25 16:34 | PTCARENOTE ---
Continuing to wean dopamine, repeat labs sent. patient comfortable, denies chest pain/SOB.
[2024-12-25 16:45] LABS: Glucose - Point of Care 131 mg/dl (70-99)
[2024-12-25] MEDS: MAGNESIUM SULFATE 100 IV (17:51)
[2024-12-25] MEDS: XARELTO 20 MG PO (17:51)
[2024-12-25] MEDS: TYLENOL 650 MG PO (19:32)
[2024-12-25 21:42] LABS: Glucose - Point of Care 99 mg/dl (70-99)
[2024-12-26] VITALS (49 sets, daily range): BP systolic 76–153; BP diastolic 48–78; PULSE 66–86; BMI 34.5; BMI 34.7
[2024-12-26] MEDS: DOPamine 400 MG 250 IV (03:24)
[2024-12-26 03:50] LABS: Hematocrit 34.5 % (37.0-47.0); Hemoglobin 11.9 g/dL (12.0-16.0); Mean Corp Hgb Conc. 34.5 g/dL (33.0-37.0); Mean Corpuscular Volume 88.9 fL (81.0-99.0); Platelet Count 215 10^3/uL (130-400); Red Cell Dist. Width 13.1 % (11.5-14.5)
[2024-12-26 04:04] LABS: ALT (SGPT) 14 U/L (0-35); AST (SGOT) 27 U/L (14-36); Albumin 2.9 g/dl (3.5-5.0); Alkaline Phosphatase 63 U/L (38-126); Blood Urea Nitrogen 8 mg/dl (7-17); Calcium 7.9 mg/dl (8.4-10.2); Carbon Dioxide 26 mmol/L (22-30); Chloride 108 mmol/L (98-107); Estimated Creatinine Clearance 85 ml/min; Glucose 105 mg/dl (70-99); Magnesium 2.7 mg/dl (1.6-2.3); Potassium 3.5 mmol/L (3.5-5.1); Sodium 137 mmol/L (135-145); Total Protein 5.3 g/dl (6.3-8.2); eGFR > 60.00
[2024-12-26 04:23] LABS: C-Reactive Protein 112.30 mg/L (0.0-10.00); Troponin I 0.018 ng/ml
[2024-12-26] MEDS: KCL 270 MEQ IV (04:45)
--- NOTE | 2024-12-26 06:22 | PTCARENOTE ---
Assumed care of patient at 1900. Pt AOx3, resting in bed comfortably. Patient assessed, vital signs stable, see flowsheets. Dopamine gtt infusing as ordered. Attempted to wean gtt but HR sustaining in the 60's. BP stable, per BOOM PUMP OPERATOR, keep systolic BP
>90. patient has no questions at this turn, call boudreaux within reach. Will continue to monitor.
--- NOTE | 2024-12-26 07:12 | W.PN.HOSP.TC ---
Addendum entered and electronically signed by Shaina Rivas MD 12/26/24 14:41:
I saw and evaluated the patient independently. I reviewed the resident�s note and agree with findings and plan as documented by Dr. Buchanan.
GENERAL: well developed, well nourished, female in no apparent distress
HEENT: NC/AT--O2 off
HEART: regular rate and rhythm, +S1, +S2
LUNGS : clear to auscultation bilaterally
ABDOM: soft, nontender, nondistended, + bowel sounds
EXT: no cyanosis, clubbing, or edema
NEUROLOGIC: grossly intact
SKIN: bruises all over
Arrhythmia, prolonged QTc and Torsades de pointes/Ventricular tachycardia requiring CPR as outpt--multiple meds as possible triggers (atenolol, Tikosyn, duloxetine, paroxetine, unclear if any effects from Mounjaro?)--would stop all meds if
able--keep mag > 2.0 and potassium > 4-- dopamine off, transfer to IVU--unclear if pt candidate for pacer/defibrillator?--would defer to cards---ECHO- LVEF 60%- Mild mitral valve regurgitation. Trace tricuspid regurgitation
Hypokalemia--monitor potassium-- goal >4--check mg goal>2--replete if low
Nausea--Tigan 200mg Q6h prn--watch antiemetics with long QT
History of paroxysmal afib--s/p ablation--stop Tikosyn--cont Xarelto
Type 2 Diabetes Mellitus--Stop Mounjaro--Insulin Sliding Scale-low resistance
Hyperlipidemia-cont crestor
DVT proph- xarelto
code status--FULL CODE
Original Note:
Today's Communication/Plan
-
Transfer IMU
Stop Dopamine
Monitor K
PT/OT consult
Assessment / Plan
Assessment / Plan
#Arrhythmia, prolonged QTc and Torsades de pointes/ Ventricular tachycardia
-discontinue Tikasyn
-IV Magnesium
-trend troponin levels
-avoid QTc prolonging meds
-Following QTc
-consult cardiology regarding dopamin ggt
-ECHO- LVEF 60%- Mild mitral valve regurgitation. Trace tricuspid regurgitation. no sign change from 2023 records
-12/26 EKG QTc improving -- continue monitoring
-Stop Dopamine gtt
-Transfer IMU
#Hypokalemia
-monitor potassium-- goal >4
-check mg goal>2
-replete if low
#Nausea
-Tigan 200mg Q6h prn
-improved
#PT/OT
-consulted
#History of afib
-Continue Xarelto
-Hold Tikosyn
#Leukocytosis
-CBC, CMP, CRP
-
#Diabetes Mellitus
-Stop Mounjaro
-Insulin Sliding Scale-low resistance
-Hyperglycemia- start Metformin
#History of Cellulitis
#Hyperlipidemia
-con crestor
DVT ppx- xarelto
Anticipated Discharge: 24 - 48 hours
Subjective/Interval History
-
Date of Service: December 26, 2024
She is comfortable eating her food. Increased appetite. Denies nausea, any chest pain, SOB.
Objective Data
-
Labs:
Laboratory Results
12/26/24
03:39
WBC 9.4
Hgb 11.9 L
Hct 34.5 L
Plt Count 215
Sodium 137
Potassium 3.5
Chloride 108 H
Carbon Dioxide 26
BUN 8
Creatinine 0.6
Glucose 105 H
Calcium 7.9 L
Total Bilirubin 0.6
AST 27
ALT 14
Alkaline Phosphatase 63
Vital Signs:
Vital Signs
Temp Pulse Resp BP Pulse Ox
98.3 F 62 13 104/56 98
12/26/24 03:44 12/26/24 03:30 12/26/24 03:30 12/26/24 03:30 12/25/24 20:00
I&O
12/25/24 12/26/24 12/27/24
06:59 06:59 06:59
Intake Total 4955.1 / 5018.2 1424.7 / 1424.7
Output Total 4300 / 4300 2150 / 2150
Balance 655.1 / 718.2 -725.3 / -725.3
Review of Systems
-
History Source: Patient
Constitutional: Reports No Symptoms
EENT: Reports No Symptoms Reported
Respiratory: Reports No Symptoms
Cardiac: Reports No Symptoms
Abdomen/GI: Reports No Symptoms
Breast: Reports No Symptoms
Genitourinary: Reports No Symptoms
Musculoskeletal: Reports Muscle Pain (bilateral leg pain) and Edema (both legs)
Skin: Reports No Symptoms
Neuro: Reports No Symptoms
Endocrine: Reports No Symptoms
Physical Exam
-
General: Well Developed and Well Nourished
HEENT: Normocephalic and Atraumatic
Respiratory: Clear to Auscultation
Cardiac: S1/S2
Breast: Deferred by me
GI: Soft, Nontender and Nondistended
Genito-urinary: Deferred by me
Musculoskeletal: Edema, Right Lower Extrem and Edema, Left Lower Extrem
Skin: Warm
Neuro: AO x 3
Psych: Calm
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
[2024-12-26] MEDS: PROTONIX 40 MG PO (07:26)
[2024-12-26] MEDS: ADVAIR HFA 115/21 MCG INHALER 2 PUFF INH ×2 (07:26→19:13)
[2024-12-26] MEDS: CRESTOR 40 MG PO (07:26)
[2024-12-26] MEDS: HIPREX 1 GRAM PO ×2 (07:26→19:54)
--- NOTE | 2024-12-26 08:00 | PTCARENOTE ---
Received patient from caustic cresylate shift superintendent. Assessment as charted. patient is AAOx4. Patient is on room air, is sinus rhythm on monitor. dopamine gtt infusing into right double lumen picc at 7mcg. patient is ordered diabetic diet. Purewick in place.
Will review orders and continue to wean dopamine.
[2024-12-26 08:19] LABS: Glucose - Point of Care 98 mg/dl (70-99)
[2024-12-26 11:45] LABS: Glucose - Point of Care 86 mg/dl (70-99)
--- NOTE | 2024-12-26 12:50 | W.PN.CARDCBS ---
Addendum entered and electronically signed by Heath Khan MD 12/26/24 14:23:
Consider restart of spironolactone in a.m.
Original Note:
Today's Communication / Plan
-
Discontinue dopamine
Transfer to IVU
Impression / Plan
-
Impression:
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
PAF status post pulsed field ablation April 2024
Subclinical CAD/coronary artery calcification
Aortic and cerebrovascular atherosclerosis
GERD
Hypertension
Hypercholesterolemia
Type 2 diabetes with polyneuropathy
Depression
Sleep apnea with history of UVP
Pulmonary embolus DVT
Asthma
Morbid obesity
Migraines
Spinal stenosis
40 pounds weight loss with tirzepatide
Echo 12/24/2024: EF 60%, normal RV and normal atria, mild MR
Plan:
She continues to improve day by day.
QT interval is still prolonged but gradually improving. She has had no further ectopy.
Dopamine is very low, will discontinue.
She could be transferred to IVU from my standpoint.
Continue to avoid QT prolonging agents.
Sodium is now normal, 137, magnesium is elevated at 2.7. Potassium is 3.5.
I am uncertain as to elevation of CRP, defer to hospitalist
Dr. Donis to assess in AM.
Clinical summary: Pleasant 74-year-old woman admitted with documented polymorphic VT and syncope with dramatically prolonged QT interval. History of PVI (PFA) April 2024, treated with Tikosyn. Recently started on Mounjaro with 40 pounds weight
loss.
PMH: Subclinical CAD by coronary artery calcification, asthma, diabetes, diabetic polyneuropathy, GERD, hypertension, hypercholesterolemia, depression, aortic and cerebrovascular atherosclerosis, severe degenerative disc disease with multiple
procedures and history of spinal cord stimulator, sleep apnea status post UVPP
Progress Note - [employer]
Subjective
Date of Service: December 26, 2024:
Current meds: Hiprex, IV dopamine, rosuvastatin 40 mg a day, rivaroxaban 20 mg a day, spironolactone 25 mg daily,
103/57, pulse 70s, respiratory 26, weight is 85.5 kg, up 1 kg, lungs are clear, regular rate and rhythm without murmurs, abdomen extremities benign
ECG sinus rhythm, prolonged QT, but improved, 519 ms
Hemoglobin 11.9, BUN/creatinine are 8 and 0.6, magnesium is 2.7, C-reactive protein is 112
Objective
Labs:
12/26/24 03:39
12/26/24 03:39
Labs
Hgb 11.9 g/dL (12.0-16.0) L 12/26/24 03:39
Hct 34.5 % (37.0-47.0) L 12/26/24 03:39
Plt Count 215 10^3/uL (130-400) 12/26/24 03:39
PT 24.0 Sec (11.4-14.6) H 12/23/24 15:55
INR 2.10 12/23/24 15:55
APTT 37.4 Sec (23.4-35.0) H 12/23/24 15:55
Sodium 137 mmol/L (135-145) 12/26/24 03:39
Potassium 3.5 mmol/L (3.5-5.1) 12/26/24 03:39
BUN 8 mg/dl (7-17) 12/26/24 03:39
Creatinine 0.6 mg/dL (0.6-1.0) 12/26/24 03:39
Glucose 105 mg/dl (70-99) H 12/26/24 03:39
Troponins
12/23/24 12/23/24 12/24/24
15:55 22:41 03:32
Troponin I < 0.012 0.122 H* D 0.137 H*
12/24/24 12/26/24
09:32 03:39
Troponin I 0.094 H* D 0.018
Vital Signs and I&O:
Vital Signs
Temp Pulse Resp BP Pulse Ox
36.6 C 76 26 103/57 100
12/26/24 11:18 12/26/24 11:00 12/26/24 11:00 12/26/24 11:00 12/26/24 11:00
Vital Signs
Temp Pulse Resp BP Pulse Ox
36.6 C 76 26 103/57 100
12/26/24 11:18 12/26/24 11:00 12/26/24 11:00 12/26/24 11:00 12/26/24 11:00
Intake & Output
12/24/24 12/25/24 12/26/24 12/27/24
07:59 07:59 07:59 07:59
Intake Total 3219.2 / 3714.8 4762.6 / 4825.7 1451.2 / 1917.0 500.6 / 500.6
Output Total 1150 / 1350 4300 / 4300 2150 / 2150
Balance 2069.2 / 2364.8 462.6 / 525.7 -698.8 / -233.0 500.6 / 500.6
Physical Exam
Physical Exam
See above
[2024-12-26] MEDS: OCEAN, SALINE MIST 1 SPRAYS NASAL (15:27)
[2024-12-26 16:51] LABS: Glucose - Point of Care 99 mg/dl (70-99)
[2024-12-26] MEDS: XARELTO 20 MG PO (17:56)
--- NOTE | 2024-12-26 19:46 | PTCARENOTE ---
on assessment pt AAOx3, denies pain and SOB at this time, SR on the monitor, RA 100%, diabetic diet, ambulated to BR with stands by assist, RUE PICC, family at bedside and call boudreaux in reach, report to be called to IVU
[2024-12-26 22:21] LABS: Glucose - Point of Care 68 mg/dl (70-99)
[2024-12-26] MEDS: TYLENOL 650 MG PO (22:25)
[2024-12-26 22:43] LABS: Glucose - Point of Care 87 mg/dl (70-99)
[2024-12-27] VITALS (10 sets, daily range): BP systolic 118–156; BP diastolic 61–75; PULSE 72; O2SAT 100; BMI 34.5
--- NOTE | 2024-12-27 00:21 | PTCARENOTE ---
Received pt as a tsf from ICU into room 5195. Pt ambulated w/ standby assist and denies any dizziness. Tele monitor applied pt NSR w/ HR int the 70-80's. Denies any SOB. Blood sugar 68, gave pt 4 oz of juice. Repeated blood sugar w/ a result of 87.
Will follow hypoglycemic protocol. Pt oriented to new room, call boudreaux within reach.
[2024-12-27 00:42] LABS: Glucose - Point of Care 91 mg/dl (70-99)
[2024-12-27 02:50] LABS: Glucose - Point of Care 90 mg/dl (70-99)
[2024-12-27 03:32] LABS: Hematocrit 35.6 % (37.0-47.0); Hemoglobin 12.0 g/dL (12.0-16.0); Mean Corp Hgb Conc. 33.7 g/dL (33.0-37.0); Mean Corpuscular Volume 89.4 fL (81.0-99.0); Platelet Count 243 10^3/uL (130-400); Red Cell Dist. Width 13.4 % (11.5-14.5)
[2024-12-27 03:58] LABS: Blood Urea Nitrogen 16 mg/dl (7-17); Calcium 8.6 mg/dl (8.4-10.2); Carbon Dioxide 25 mmol/L (22-30); Chloride 107 mmol/L (98-107); Estimated Creatinine Clearance 74 ml/min; Glucose 96 mg/dl (70-99); Potassium 4.4 mmol/L (3.5-5.1); Sodium 137 mmol/L (135-145); eGFR > 60.00
[2024-12-27] MEDS: ADVAIR HFA 115/21 MCG INHALER 2 PUFF INH ×2 (07:25→20:13)
[2024-12-27] MEDS: HIPREX 1 GRAM PO ×2 (07:40→20:38)
[2024-12-27] MEDS: ALDACTONE 25 MG PO (07:40)
[2024-12-27] MEDS: CRESTOR 40 MG PO (07:40)
[2024-12-27] MEDS: PROTONIX 40 MG PO (07:40)
--- NOTE | 2024-12-27 07:41 | W.PN.HOSP.TC ---
Today's Communication/Plan
-
Start Spironolactone
ECG monitor
Electrolytes trending
Move to telemetry
Assessment / Plan
Assessment / Plan
#Arrhythmia, prolonged QTc and Torsades de pointes/ Ventricular tachycardia
-discontinue Tikasyn
-IV Magnesium
-trend troponin levels
-avoid QTc prolonging meds
-Following QTc
-consult cardiology regarding dopamin ggt
-ECHO- LVEF 60%- Mild mitral valve regurgitation. Trace tricuspid regurgitation. no sign change from 2023 records
-12/26 EKG QTc improving -- continue monitoring
-Stop Dopamine gtt
-Transfer IMU
-12/27 Start Spironolactone
-01/06- QTc 480 from 519 improving
-move to telemetry
#Hypokalemia
-monitor potassium-- goal >4
-check mg goal>2
-replete if low
#Nausea
-Tigan 200mg Q6h prn
-improved
#PT/OT
-consulted
#History of afib
-Continue Xarelto
-Hold Tikosyn
#Leukocytosis
-CBC, CMP, CRP
-WBC improving
#Diabetes Mellitus
-Stop Mounjaro
-Insulin Sliding Scale-low resistance
-Hyperglycemia- start Metformin
#History of Cellulitis
#Hyperlipidemia
-con crestor
DVT ppx- xarelto
Anticipated Discharge: > 48 hours
Subjective/Interval History
-
Date of Service: December 27, 2024
She is comfortable, sitting on the chair and eating her breakfast. She is worried about having another episode like that. Denies nausea, vomiting, chest pain, SOB.
Objective Data
-
Labs:
Laboratory Results
12/27/24
03:10
WBC 11.2 H
Hgb 12.0
Hct 35.6 L
Plt Count 243
Sodium 137
Potassium 4.4 D
Chloride 107
Carbon Dioxide 25
BUN 16
Creatinine 0.7
Glucose 96
Calcium 8.6
Vital Signs:
Vital Signs
Temp Pulse Resp BP Pulse Ox
98.2 F 72 14 123/70 99
12/27/24 02:44 12/27/24 07:29 12/27/24 07:29 12/27/24 02:47 12/27/24 02:44
I&O
12/26/24 12/27/24 12/28/24
06:59 06:59 06:59
Intake Total 1424.7 / 1514.3 1082.9 / 1082.9
Output Total 2150 / 2150
Balance -725.3 / -635.7 1082.9 / 1082.9
Review of Systems
-
History Source: Patient
Constitutional: Reports No Symptoms
EENT: Reports No Symptoms Reported
Respiratory: Reports No Symptoms
Cardiac: Reports No Symptoms
Abdomen/GI: Reports No Symptoms
Breast: Reports No Symptoms
Genitourinary: Reports No Symptoms
Musculoskeletal: Reports Muscle Pain (bilateral leg pain) and Edema (both legs)
Skin: Reports No Symptoms
Neuro: Reports No Symptoms
Endocrine: Reports No Symptoms
Psych: Reports Other (worried)
Physical Exam
-
General: Well Developed and Well Nourished
HEENT: Normocephalic and Atraumatic
Respiratory: Clear to Auscultation
Cardiac: S1/S2
Breast: Deferred by me
GI: Soft, Nontender and Nondistended
Genito-urinary: Deferred by me
Musculoskeletal: Edema, Right Lower Extrem and Edema, Left Lower Extrem
Skin: Warm
Neuro: AO x 3
Psych: Calm
[2024-12-27 07:49] LABS: Glucose - Point of Care 79 mg/dl (70-99)
--- NOTE | 2024-12-27 08:00 | PTCARENOTE ---
received patient at change shift from previous RN. Pt AAOX3. pt ambulated to bathroom with standby assist. SR on telemetry heart rate in 70s. pulses palpable. +1 edema in lower extremities. 99% on room air. active bowel sounds. stress incontinence,
wearing own attends. see worklist for full nursing assessment. pt updated on plan of care.
[2024-12-27 09:26] LABS: Magnesium 1.9 mg/dl (1.6-2.3)
--- NOTE | 2024-12-27 10:44 | W.PN.CARDCBS ---
Today's Communication / Plan
-
Daily EKG, monitor on telemetry
Repeat electrolytes goal potassium greater than 4, magnesium greater than 2
Avoid all QT prolonging medications, stop PPI, okay to resume Aldactone
Impression / Plan
-
Impression:
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
Acquired LQTS
- Multifactorial in the setting of: Dofetilide (QT prolonging), Cymbalta (QT prolonging), Mounjaro (QT prolonging, electrolyte abnormalities, decreased appetite, recurrent emesis), PPI (potential for hypomagnesemia)
- electrolyte abnormalities related to after mentioned medications
PAF status post pulsed field ablation April 2024
Subclinical CAD/coronary artery calcification
Aortic and cerebrovascular atherosclerosis
GERD
Hypertension
Hypercholesterolemia
Type 2 diabetes with polyneuropathy
Depression
Sleep apnea with history of UVP
Pulmonary embolus DVT
Asthma
Morbid obesity
Migraines
Spinal stenosis
40 pounds weight loss with tirzepatide
Echo 12/24/2024: EF 60%, normal RV and normal atria, mild MR
Plan:
QT/QTc continues to improve
Continue electrolyte repletion with goal potassium greater than 4, magnesium greater than 2; continue oral and IV repletion
Would avoid QT prolonging medications going forward�would discontinue dofetilide, Cymbalta, Mounjaro, PPI. In the setting of acquired long QT syndrome, no indication at this current juncture for ICD therapy by guideline and appropriate use
criteria. Patient may benefit from ischemic evaluation as other possible etiology
Monitor on telemetry, daily EKG
I am uncertain as to elevation of CRP, defer to hospitalist
Discussed with patient, nursing, family, hospitalist
Clinical summary: Pleasant 74-year-old woman admitted with documented polymorphic VT and syncope with dramatically prolonged QT interval. History of PVI (PFA) April 2024, treated with Tikosyn. Recently started on Mounjaro with 40 pounds weight
loss.
PMH: Subclinical CAD by coronary artery calcification, asthma, diabetes, diabetic polyneuropathy, GERD, hypertension, hypercholesterolemia, depression, aortic and cerebrovascular atherosclerosis, severe degenerative disc disease with multiple
procedures and history of spinal cord stimulator, sleep apnea status post UVPP
Progress Note - Manager Entry
Subjective
Date of Service: December 27, 2024
Patient seen and examined. No acute events overnight. Patient resting comfortably. Patient [place] any chest pain, shortness of breath, palpitations, lightheadedness, dizziness, near-syncope, syncope, PND, orthopnea, edema, or weakness.
Objective
Labs:
12/27/24 03:10
12/27/24 03:10
Labs
Hgb 12.0 g/dL (12.0-16.0) 12/27/24 03:10
Hct 35.6 % (37.0-47.0) L 12/27/24 03:10
Plt Count 243 10^3/uL (130-400) 12/27/24 03:10
PT 24.0 Sec (11.4-14.6) H 12/23/24 15:55
INR 2.10 12/23/24 15:55
APTT 37.4 Sec (23.4-35.0) H 12/23/24 15:55
Sodium 137 mmol/L (135-145) 12/27/24 03:10
Potassium 4.4 mmol/L (3.5-5.1) D 12/27/24 03:10
BUN 16 mg/dl (7-17) 12/27/24 03:10
Creatinine 0.7 mg/dL (0.6-1.0) 12/27/24 03:10
Glucose 96 mg/dl (70-99) 12/27/24 03:10
Troponins
12/26/24
03:39
Troponin I 0.018
Vital Signs and I&O:
Vital Signs
Temp Pulse Resp BP Pulse Ox
97.6 F 72 14 138/68 99
12/27/24 07:58 12/27/24 09:00 12/27/24 07:29 12/27/24 08:37 12/27/24 02:44
Vital Signs
Temp Pulse Resp BP Pulse Ox
97.6 F 72 14 138/68 99
12/27/24 07:58 12/27/24 09:00 12/27/24 07:29 12/27/24 08:37 12/27/24 02:44
Intake & Output
12/25/24 12/26/24 12/27/24 12/28/24
06:59 06:59 06:59 06:59
Intake Total 4955.1 / 5018.2 1424.7 / 1514.3 1082.9 / 1082.9
Output Total 4300 / 4300 2150 / 2150
Balance 655.1 / 718.2 -725.3 / -635.7 1082.9 / 1082.9
Physical Exam
Physical Exam
GENERAL: no acute distress
EYE: sclera anicteric
NECK: Supple, no JVD, no carotid bruit appreciated
ENT: normal nose, moist mucosal membranes
CARDIAC: Regular rate and rhythm, +S1/S2, no murmur, rubs, or gallops
CHEST/PULMONARY: Normal effort, clear breath sounds
ABDOMEN: Soft, without focal tenderness or distention
NEUROLOGICAL: Alert and oriented x3
SKIN: Warm and dry, no rash
PSYCH: Normal and appropriate interaction.
Telemetry sinus rhythm, rare PACs no ventricular ectopy
EKG: Sinus PAC 73 bpm; QT/QTc 452/497 ms
[2024-12-27 12:49] LABS: Glucose - Point of Care 80 mg/dl (70-99)
[2024-12-27 16:53] LABS: Glucose - Point of Care 85 mg/dl (70-99)
[2024-12-27] MEDS: XARELTO 20 MG PO (18:24)
[2024-12-27 22:27] LABS: Glucose - Point of Care 93 mg/dl (70-99)
[2024-12-27] MEDS: FIORICET 1 TAB PO (22:33)
[2024-12-28 03:12] VITALS: BP 133/65
[2024-12-28 03:16] VITALS: BMI 34.5
[2024-12-28 03:42] LABS: Hematocrit 35.3 % (37.0-47.0); Hemoglobin 11.7 g/dL (12.0-16.0); Mean Corp Hgb Conc. 33.1 g/dL (33.0-37.0); Mean Corpuscular Volume 90.7 fL (81.0-99.0); Nucleated Red Blood Cells % 0 %; Platelet Count 233 10^3/uL (130-400); Red Cell Dist. Width 13.3 % (11.5-14.5)
--- NOTE | 2024-12-28 03:59 | PTCARENOTE ---
Pt. OOB to chair and ambulatory with assist x 1 this shift. No complaints pain/discomfort, NSR on the monitor without ectopy. Pt. resting quietly.
[2024-12-28 04:03] LABS: ALT (SGPT) 19 U/L (0-35); AST (SGOT) 33 U/L (14-36); Albumin 3.6 g/dl (3.5-5.0); Alkaline Phosphatase 69 U/L (38-126); Blood Urea Nitrogen 15 mg/dl (7-17); Calcium 9.1 mg/dl (8.4-10.2); Carbon Dioxide 26 mmol/L (22-30); Chloride 106 mmol/L (98-107); Estimated Creatinine Clearance 64 ml/min; Glucose 101 mg/dl (70-99); Magnesium 1.7 mg/dl (1.6-2.3); Potassium 4.2 mmol/L (3.5-5.1); Sodium 138 mmol/L (135-145); Total Protein 6.1 g/dl (6.3-8.2); eGFR > 60.00
[2024-12-28 07:16] VITALS: BP 132/67
[2024-12-28 07:16] LABS: Glucose - Point of Care 85 mg/dl (70-99)
--- NOTE | 2024-12-28 07:20 | W.PN.HOSP.TC ---
Today's Communication/Plan
-
2 week rhythm star monitor
restart atenolol 12.5mg BID upon DC
discharge
Assessment / Plan
Assessment / Plan
#Arrhythmia, prolonged QTc and Torsades de pointes/ Ventricular tachycardia
-discontinue Tikasyn
-IV Magnesium
-trend troponin levels
-avoid QTc prolonging meds
-Following QTc
-consult cardiology regarding dopamin ggt
-ECHO- LVEF 60%- Mild mitral valve regurgitation. Trace tricuspid regurgitation. no sign change from 2023 records
-12/26 EKG QTc improving -- continue monitoring
-Stop Dopamine gtt
-Transfer IMU
-12/27 Start Spironolactone
-PPI discontinued
-transfer to telemetry
-12/28-QTc 459 improved
-Resume Atenolol 12.5mg BID
-12/28- Discharge w 2 week rhythm star monitor
#Hypokalemia
-monitor potassium-- goal >4
-check mg goal>2
-replete Mg, K
#Nausea
-Tigan 200mg Q6h prn
-improved
#PT/OT
-consulted
#History of afib
-Continue Xarelto
-Hold Tikosyn
#Leukocytosis
-CBC, CMP, CRP
-WBC improving
#Diabetes Mellitus
-Stop Mounjaro
-Insulin Sliding Scale-low resistance
-Hyperglycemia- start Metformin
#History of Cellulitis
#Hyperlipidemia
-con crestor
DVT ppx- xarelto
Anticipated Discharge: Within 24 hours
Subjective/Interval History
-
Date of Service: December 28, 2024
She feels a little bit fearful about going home. Denies SOB, Chest pain, palpitations no complaints.
Objective Data
-
Labs:
Laboratory Results
12/28/24
03:25
WBC 11.5 H
Hgb 11.7 L
Hct 35.3 L
Plt Count 233
Sodium 138
Potassium 4.2
Chloride 106
Carbon Dioxide 26
BUN 15
Creatinine 0.8
Glucose 101 H
Calcium 9.1
Total Bilirubin 0.4
AST 33
ALT 19
Alkaline Phosphatase 69
Vital Signs:
Vital Signs
Temp Pulse Resp BP Pulse Ox
97.9 F 72 13 133/65 99
12/28/24 07:16 12/28/24 07:16 12/28/24 07:16 12/28/24 03:12 12/28/24 07:16
I&O
12/27/24 12/28/24 12/29/24
06:59 06:59 06:59
Intake Total 1082.9 / 1082.9 960 / 960
Balance 1082.9 / 1082.9 960 / 960
Review of Systems
-
History Source: Patient
Constitutional: Reports No Symptoms
EENT: Reports No Symptoms Reported
Respiratory: Reports No Symptoms
Cardiac: Reports No Symptoms
Abdomen/GI: Reports No Symptoms
Breast: Reports No Symptoms
Genitourinary: Reports No Symptoms
Musculoskeletal: Reports Muscle Pain (bilateral leg pain) and Edema (both legs)
Skin: Reports No Symptoms
Neuro: Reports No Symptoms
Endocrine: Reports No Symptoms
Psych: Reports Other (worried)
Physical Exam
-
General: Well Developed and Well Nourished
HEENT: Normocephalic and Atraumatic
Respiratory: Clear to Auscultation
Cardiac: S1/S2
Breast: Deferred by me
GI: Soft, Nontender and Nondistended
Genito-urinary: Deferred by me
Musculoskeletal: Edema, Right Lower Extrem and Edema, Left Lower Extrem
Skin: Warm
Neuro: AO x 3
Psych: Calm
[2024-12-28] MEDS: ADVAIR HFA 115/21 MCG INHALER 2 PUFF INH (07:27)
--- NOTE | 2024-12-28 07:45 | PTCARENOTE ---
Assumed care of pt from prev nsg shift; Pt AAOx3 w/no c/o CP or SOB. Pt w/VSS w/HR in the 70's & BP 132/67. Pt is SR on telemetry monitoring. Pt anxious re: poss D/C to hm today. Pt provided emotional support and resident assigned to pt notified.
Hospitalist & Cardiology will be in to see the pt. Pt w/RUE dual lumen PICC w/both lines patent. Pt w/no addtl needs at this time. Plan of care ongoing.
[2024-12-28] MEDS: HIPREX 1 GRAM PO (09:31)
[2024-12-28] MEDS: MAGNESIUM SULFATE 50 IV (09:31)
[2024-12-28] MEDS: CRESTOR 40 MG PO (09:31)
[2024-12-28] MEDS: FLUSH (NSS) 2 FLUSH IV (09:31)
[2024-12-28] MEDS: ALDACTONE 25 MG PO (09:31)
--- NOTE | 2024-12-28 11:08 | W.PN.CARDCBS ---
Addendum entered and electronically signed by Remington Alfaro MD 12/28/24 11:29:
I saw and examined the patient.
The [employer] or PA's note was reviewed and I agree with the note.
Comment: General: Well developed, well nourished in NAD.
Neck: Supple, no JVD, HJR, carotids +2 B/L, no bruits bilaterally.
Heart: Non displaced PMI, RRR, no murmurs, No S3, S4, no rubs.
Lungs: Scattered rhonchi
Extremities: No clubbing, cyanosis or edema bilaterally.
Neuro: Grossly nonfocal, awake, alert and oriented x3.
Telemetry with brief nonsustained VT. No further torsades. Will restart atenolol. Will check 2-week outpatient monitor. Discussed in detail with patient's by phone as well as primary service. Total visit time 52 minutes with more than
half the time spent explaining diagnosis, prognosis, and treatment options.
Addendum entered and electronically signed by Jessica Hill PA-C 12/28/24 11:24:
correction to below: will resume OP atenolol 12.5mg BID upon DC
Original Note:
Today's Communication / Plan
-
QT remains stable
Resume outpatient atenolol. continue spironolactone. valsartan on hold.
2-week rhythm star monitor
BMP/mag in 1 week
OP cardiac follow up arranged
Impression / Plan
-
Impression:
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
Acquired LQTS
- Multifactorial in the setting of: Dofetilide (QT prolonging), Cymbalta (QT prolonging), Mounjaro (QT prolonging, electrolyte abnormalities, decreased appetite, recurrent emesis), PPI (potential for hypomagnesemia)
- electrolyte abnormalities related to after mentioned medications
PAF status post pulsed field ablation April 2024
Subclinical CAD/coronary artery calcification
Aortic and cerebrovascular atherosclerosis
GERD
Hypertension
Hypercholesterolemia
Type 2 diabetes with polyneuropathy
Depression
Sleep apnea with history of UVP
Pulmonary embolus DVT
Asthma
Morbid obesity
Migraines
Spinal stenosis
40 pounds weight loss with tirzepatide
Echo 12/24/2024: EF 60%, normal RV and normal atria, mild MR
Plan:
- She presented with polymorphic VT. This was felt to be secondary to QT prolongation from combination of dofetilide, Cymbalta, Mounjaro, and electrolyte abnormalities in setting of recent increase in GLP-1 dosing with nausea/vomiting and decreased
appetite
- Tikosyn, Cymbalta, and Mounjaro have been stopped. Continue to avoid QT prolonging medications
- Potassium and magnesium have been repleted. Would aim to keep K greater than 4, mag greater than 2
- QT stable by EKG 12/28/2024
- No present indication for ICD, given reversible cause
- she did have brief run of NSVT (monomorphic) around 1900 last evening. will resume OP atenolol 12.5mg daily and follow
- Will plan for 2-week rhythm star monitor upon discharge
- BMP/mag in 1 week upon DC
- consider for outpatient ischemic evaluation, last from 2022 with normal perfusion
- OP valsartan remains on hold. continue spironolactone. Would continue outpatient Lasix 40 mg daily as needed upon discharge. Encourage patient to follow daily weight
- will arrange OP cardiac follow up
- d/w hospitalist
Clinical summary: Pleasant 74-year-old woman admitted with documented polymorphic VT and syncope with dramatically prolonged QT interval. History of PVI (PFA) April 2024, treated with Tikosyn. Recently started on Mounjaro with 40 pounds weight
loss.
PMH: Subclinical CAD by coronary artery calcification, asthma, diabetes, diabetic polyneuropathy, GERD, hypertension, hypercholesterolemia, depression, aortic and cerebrovascular atherosclerosis, severe degenerative disc disease with multiple
procedures and history of spinal cord stimulator, sleep apnea status post UVPP
Progress Note - Director Critical Care
Subjective
Date of Service: December 28, 2024
No complaints overnight
Objective
Labs:
12/28/24 03:25
12/28/24 03:25
Labs
Hgb 11.7 g/dL (12.0-16.0) L 12/28/24 03:25
Hct 35.3 % (37.0-47.0) L 12/28/24 03:25
Plt Count 233 10^3/uL (130-400) 12/28/24 03:25
PT 24.0 Sec (11.4-14.6) H 12/23/24 15:55
INR 2.10 12/23/24 15:55
APTT 37.4 Sec (23.4-35.0) H 12/23/24 15:55
Sodium 138 mmol/L (135-145) 12/28/24 03:25
Potassium 4.2 mmol/L (3.5-5.1) 12/28/24 03:25
BUN 15 mg/dl (7-17) 12/28/24 03:25
Creatinine 0.8 mg/dL (0.6-1.0) 12/28/24 03:25
Glucose 101 mg/dl (70-99) H 12/28/24 03:25
Troponins
12/26/24
03:39
Troponin I 0.018
Vital Signs and I&O:
Vital Signs
Temp Pulse Resp BP Pulse Ox
97.9 F 64 14 132/67 100
12/28/24 07:16 12/28/24 08:00 12/28/24 07:30 12/28/24 07:16 12/28/24 07:30
Vital Signs
Temp Pulse Resp BP Pulse Ox
97.9 F 64 14 132/67 100
12/28/24 07:16 12/28/24 08:00 12/28/24 07:30 12/28/24 07:16 12/28/24 07:30
Intake & Output
12/26/24 12/27/24 12/28/24 12/29/24
07:59 07:59 07:59 07:59
Intake Total 1451.2 / 1917.0 993.3 / 993.3 960 / 960
Output Total 2150 / 215
Balance -698.8 / -233.0 993.3 / 993.3 960 / 960
Physical Exam
Physical Exam
GEN: No distress, awake, alert, oriented x3
HEENT: supple, anicteric, mmm, eomi
LUNGS: CTA B/L, no wheezes/rales
CV: Reg, S1/S2, no murmur
ABD: soft, BS+, NT/ND
EXT: No cyanosis, clubbing. trace edema of B/L LE
NEURO: Gross non-focal
SKIN: Warm, pink, dry. No rash
[2024-12-28 11:32] VITALS: BP 134/68
[2024-12-28 12:00] LABS: Glucose - Point of Care 88 mg/dl (70-99)
[2024-12-28 13:37] VITALS: BP 129/73
[2024-12-28] MEDS: TENORMIN 12.5 MG PO (13:37)
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
[2024-12-28 15:05] VITALS: BP 139/74
--- NOTE | 2024-12-28 18:00 | PTCARENOTE ---
Pt's IV line & telemetry pack D/C'd. Discussed pt's D/C instructions & meds w/pt, pt's daughter, & her spouse on speakerphone. When discussing checking fingerstick glucose levels the pt reported that she has lost her monitor at home. This RN advised
resident caring for pt & a prescription was sent in for a new glucose monitor, strips, & lancets to the pt's preferred pharmacy. Pt D/C'd to w/her daughter driving her. Pt left w/personal belongings includ cellphone & outreach rep.
== END 2024-12-28 18:05 | disposition home or self-care (01) | DRG 309 ==
LOC: IVU 18:29
PROVIDERS: Internal Medicine; Internal Medicine Cardiovascular Disease; Nurse Practitioner Primary Care; ADMITTING PHYSICIAN Student in an Organized Health Care Education/Training Program; ATTENDING PHYSICIAN Internal Medicine; CONSULT PHYSICIAN Internal Medicine Cardiovascular Disease; EMERGENCY PHYSICIAN Emergency Medicine; OTHER PHYSICIAN Internal Medicine
DX: I47.21 Torsades de pointes (principal); I50.32 Chronic diastolic (congestive) heart failure; I5A Non-ischemic myocardial injury (non-traumatic); I47.29 Other ventricular tachycardia; I45.81 Long QT syndrome; E87.6 Hypokalemia; I48.0 Paroxysmal atrial fibrillation; I11.0 Hypertensive heart disease with heart failure; F32.A Depression, unspecified; E11.42 Type 2 diabetes mellitus with diabetic polyneuropathy; E66.01 Morbid (severe) obesity due to excess calories; E78.00 Pure hypercholesterolemia, unspecified; E83.42 Hypomagnesemia; G47.30 Sleep apnea, unspecified; I25.10 Atherosclerotic heart disease of native coronary artery without angina pectoris; J45.909 Unspecified asthma, uncomplicated; K21.9 Gastro-esophageal reflux disease without esophagitis; M35.3 Polymyalgia rheumatica; M48.00 Spinal stenosis, site unspecified; E11.65 Type 2 diabetes mellitus with hyperglycemia; R11.0 Nausea; D72.829 Elevated white blood cell count, unspecified; Z68.34 Body mass index [BMI] 34.0-34.9, adult; Z79.01 Long term (current) use of anticoagulants; Z79.899 Other long term (current) drug therapy; Z79.51 Long term (current) use of inhaled steroids; Z79.84 Long term (current) use of oral hypoglycemic drugs; Z79.85 Long-term (current) use of injectable non-insulin antidiabetic drugs; Z86.711 Personal history of pulmonary embolism; Z86.718 Personal history of other venous thrombosis and embolism
CPT/HCPCS: 71045; 80048; 80053; 82962; 83036; 83605; 83735; 84100; 84132; 84484; 85025; 85027; 85610; 85730; 86140; 87502; 87811; 93005; 93306; 94640; 96365; 96366; 96375; 97162; 97166; 99291

== ENCOUNTER → 2025-02-07 08:07 | Outpatient (REF) | payer MEDICARE, OTHER, SELFPAY | LOC: WDC 08:07 | PROVIDERS: ATTENDING PHYSICIAN Family Medicine | DX: Z12.31 Encounter for screening mammogram for malignant neoplasm of breast (principal) | CPT/HCPCS: 77063; 77067 ==

== ENCOUNTER → 2025-02-09 12:27 | Outpatient (REF) | payer MEDICARE, OTHER, SELFPAY | LOC: RAD 12:27 | PROVIDERS: ATTENDING PHYSICIAN Nurse Practitioner; FAMILY PHYSICIAN Family Medicine | DX: M54.12 Radiculopathy, cervical region (principal); M54.14 Radiculopathy, thoracic region | CPT/HCPCS: 72050; 72072 ==

== ENCOUNTER 2025-02-25 22:11 | Inpatient (IN) | payer MEDICARE, OTHER, SELFPAY ==
[2025-02-25] VITALS (10 sets, daily range): BP systolic 105–124; BP diastolic 43–65; BMI 34.3; BMI 34.2
--- NOTE | 2025-02-25 17:01 | ED.GENMED ---
History of Present Illness
General
Chief Complaint: Fall
Source: patient
Exam Limitations: none
Time Seen by Provider: 02/25/25 16:48
Nursing documentation reviewed up to this point in time: agreed with
History of Present Illness
History of Present Illness:
Note:
CHIEF COMPLAINT(S)
Syncope
HISTORY OF PRESENT ILLNESS
The patient is a 74-year-old female who presented after experiencing a syncopal episode. She does not recall the incident herself. According to a family member, the patient was found unconscious and later regained consciousness feeling warm. The
patient reported having a headache throughout the day. Additionally, she described experiencing cold sensations in her hands, stating that her fingertips were numb and appeared discolored, 'like black and white.'
A diagnostic evaluation revealed normal sinus rhythm on the electrocardiogram (EKG). The patient denied chest pain or any other pain and did not report any known triggers prior to the episode. The overall plan is to keep the patient under
observation in the hospital overnight for further monitoring.
REVIEW OF SYSTEMS
- Neurological: Headache present throughout the day.
- Cardiovascular: Syncope episode without preceding symptoms mentioned. No chest pain.
- Musculoskeletal: Cold sensations in hands, numbness, and discoloration described.
- General: Patient experienced a warm sensation post-syncope.
PHYSICAL EXAM
General: Alert, no acute distress.
Skin: Warm, dry.
Head: Normocephalic, atraumatic.
Neck: Supple, trachea midline.
Eye Ears, nose, mouth and throat: Oral mucosa moist.
Cardiovascular: Normal peripheral perfusion, No edema.
Respiratory: Respirations are non-labored.
Gastrointestinal: Abdomen nondistended.
Back: Normal range of motion, Normal alignment.
Musculoskeletal: Normal range of motion, normal strength.
Neurological: Alert and oriented to person, place, time, and situation, No focal neurological deficit observed.
Psychiatric: Cooperative, appropriate mood & affect.
PLAN
- Admit the patient for overnight observation to monitor her condition.
- Conduct blood tests to investigate underlying causes of syncope and numbness.
- Evaluate the need for a CT scan of the head, particularly in light of persistent headache symptoms.
DIFFERENTIAL DIAGNOSIS
The Differential Diagnosis includes, in no particular order and is not limited to:
1. Transient Ischemic Attack (TIA)
2. Vasovagal syncope
3. Orthostatic hypotension
4. Arrhythmia
5. Hypoglycemia
6. Dehydration
7. Carpal Tunnel Syndrome
8. Peripheral neuropathy
9. Anemia
10. Severe anxiety or panic attack
EKG
My independent EKG interpretation is:
- EKG time: Not specified
- Rhythm: Not specified
- Heart rate: 68 bpm
- NH interval: Normal
- QRS duration: Normal
- QT interval: Normal, shortened compared to December 28, 2024
- [place]: Not specified
- Abnormalities: Nonspecific ST abnormality
Disposition:
SUMMARY OF ENCOUNTER
The patient, a 74-year-old female, presented to the emergency department after a syncopal episode. She appeared unconscious and later regained consciousness feeling warm. Accompanying symptoms included a headache and cold sensations in her hands
with numbness and discoloration. An EKG was conducted, showing normal sinus rhythm with nonspecific ST abnormalities. Considering her age and symptoms, she was evaluated for potential causes of syncope, including transient ischemic attack, vasovagal
syncope, and arrhythmia. The decision was made to admit her for overnight observation to monitor her condition and further investigate the underlying causes of her symptoms.
DISPOSITION
Admit
ASSESSMENT
Syncopal episode likely related to syncope or possibly mild hypovolemia. Further evaluation for underlying causes, such as arrhythmia or transient ischemic attack, is warranted.
PLAN
- Admit the patient for overnight observation to monitor her condition.
- Conduct blood tests to investigate underlying causes of syncope and numbness.
- Evaluate the need for a CT scan of the head in light of persistent headache symptoms.
INDEPENDENT REVIEW OF LABS AND INTERPRETATION OF TESTS
My independent review of the EKG indicates normal sinus rhythm with a heart rate of 68 bpm [address] a nonspecific [address] abnormality.
MEDICAL DECISION MAKING
1. Number and Complexity of Problems Addressed: Chronic conditions affecting care included potential transient ischemic attack, vasovagal syncope, orthostatic hypotension, arrhythmia, hypoglycemia, dehydration, carpal tunnel syndrome, peripheral
neuropathy, anemia, and severe anxiety or panic attack.
2. Data: Amount and/or Complexity of Data Reviewed and Analyzed
Category 1:
- My independent interpretation of EKG indicates normal sinus rhythm with nonspecific ST abnormalities.
Category 2:
- Clinical information was obtained from an independent historian, confirming the syncopal episode and symptoms.
3. Risk:
- Admission for overnight observation was considered to monitor the patient�s condition due to the risk of complications from potential underlying arrhythmia or other cardiovascular conditions.
DIAGNOSIS
Syncope, ICD-10 R55
Mild hypovolemia (suspected), ICD-10 E86.0 (Uncertain)
Past History
Past History
ED Past Medical History: Arrthythmia (Paroxysmal Atrial fibrillation), Asthma, Fibromyalgia, GERD, HTN, Hypercholesterolemia, NIDDM, Psychiatric (Panic attacks) and Other (Migraine headaches, polymyalgia rheumatica; allergic rhinitis, Neuropathy ,
PNA, PE/DVT, Sleep apnea, Pleural effusion, Hiatal hernia, UTi, Iron Def anemia, )
ED Past Surgical History: Cardiac (Cardiac catheterization May 2013 showing mild luminal irregularities.), (X 2), Gynecological (D&E, Hysterectomy), Orthopedic (Carpal tunnel release right hand. Neurostimulator in spine, Left wrist
surgery, Left knee surgery, Fusion L4-L5, ), Tonsilectomy and Other (Implanted stimulator, Cataracts, Uvulectomy)
Social History
Tobacco: Non-smoker
Alcohol: None
Drug: Other (THC lotion)
Personal:
Living: with family
Employment: Retired
Family History
Family History: Hypertension and Cancer (Breast cancer)
Phy Exam
Physical Exam
Physical Exam:
.
Course
Orders/Labs/Results
Orders:
Orders
02/25/25 16:51
Electrocardiogram (*1) Stat
Reason for Study: Vertigo / Dizzy
Electrocardiogram (*1) Urgent
Reason for Study: Syncope
EKG- Treatment ONCE
02/25/25 17:00
Cardiac Monitoring- Treatment ONCE
IV Insert/Care/Rem.- Treatment PRN
Complete Blood Count/With Diff Urgent
Comprehensive Metabolic Panel Urgent
Creatine Phosphokinase Urgent
Magnesium Urgent
Troponin I Urgent
Pulse Ox/cont/shift [RESP] Stat
Quantity: 1
02/25/25 17:45
Atropine Sulfate [Atropine 0.1 mg/ml Syringe] 1 mg .ROUTE .STK-MED ONE
02/25/25 18:43
Add On- LAB Urgent
Tests Added?: cpk
02/25/25 18:47
CT Head W/o Iv Contrast Urgent
Comment:
Reason For Exam: fall
Abnormal Lab Results
02/25/25
17:00
WBC 14.6 H 10^3/uL
(4.8-10.8)
Abs Immat Gran (auto) 0.1 H 10^3/uL
(0-0.05)
Absolute Neuts (auto) 10.2 H 10^3/uL
(1.4-6.5)
Absolute Monos (auto) 2.6 H 10^3/uL
(0.1-0.6)
Immature Gran % 0.7 H %
(0-0.5)
Lymphocytes % 11.7 L %
(20.5-51.1)
Monocytes % 17.4 H %
(1.7-9.3)
Sodium 131 L mmol/L
(135-145)
BUN 25 H mg/dl
(7-17)
Glucose 100 H mg/dl
(70-99)
AST 134 H U/L
(14-36)
ALT 83 H U/L
(0-35)
Alkaline Phosphatase 130 H U/L
(38-126)
02/25/25 17:00
02/25/25 17:00
Vital Signs
Initial and Last Documented VS:
Initial Vital Signs
Temp Pulse Resp BP Pulse Ox
98.5 F 72 18 123/57 100
02/25/25 16:42 02/25/25 16:42 02/25/25 16:42 02/25/25 16:42 02/25/25 16:42
Last Documented Vital Signs
Temp Pulse Resp BP Pulse Ox
98.5 F 64 27 109/46 100
02/25/25 16:42 02/25/25 20:15 02/25/25 20:15 02/25/25 19:00 02/25/25 20:15
*Pulse Oximetry
SaO2: 100
Oxygen Mode of Delivery: Room air
Patient hypoxic: no
*Critical Care Note
Total Time (30-74mins, 75-104mins- exclusive of procedures): Not Applicable
ED Attending Note
-
Portions of this chart may have been created with voice recognition software.� Occasional wrong word or��sound alike� substitutions may have occurred due to the inherent limitations of voice recognition software.
Discharge Plan
Departure
Patient Disposition: Admit
Date of Disposition: 02/25/25
Time of Disposition: 20:24
Admit to: Telemetry
Presentation/result/management discussed w/ accepting MD/DO: Hospitalist
Patient with high blood pressure during this ER visit?: Yes
Condition: Fair
Discharge Problem:
Syncope
Prescriptions:
No Action
metformin 500 MG tablet
500 mg PO DAILY
Xarelto 20 MG tablet
20 mg PO QPM Qty: 0 0RF
rosuvastatin 40 mg Tablet
40 mg PO QPM
ergocalciferol (vitamin D2) [Vitamin D2] 1,250 mcg (50,000 unit) Capsule
1,250 mcg PO SA
methenamine hippurate 1 gram Tablet
1 g PO BID
furosemide 40 mg Tablet
40 mg PO DAILYPRN PRN (Reason: Edema)
jadnurfznr-emuzumdgttllg-egts 50-300-40 mg capsule
1 cap PO Q6HPRN PRN (Reason: migraine)
Folbic RF 2-1.13-25 mg tablet
1 tab PO DAILY
spironolactone 25 MG tablet
25 mg PO DAILY
Prolia 60 mg/mL Syringe
60 mg SC [id number]
duloxetine [Cymbalta] 30 mg Capsule,Delayed Release(Dr/Ec)
30 mg PO DAILY
fluticasone furoate [Arnuity Ellipta] 50 mcg/actuation Blister With Device
50 mcg INHALATION R DAILY
potassium chloride 10 mEq capsule, extended release
10 meq PO DAILY
magnesium oxide 400 mg (241.3 mg magnesium) tablet
400 mg PO DAILY
atenolol 25 mg Tablet
12.5 mg PO BID
Referrals:
UNKNOWN - PT DOES,NOT KNOW [Unknown Provider]
Interventions
Interventions:
*Risk Screen - Suicide Last Done: 02/25/25 16:51
*General Assessment Last Done: 02/25/25 16:50
*Neglect/Abuse Screening Last Done: 02/25/25 16:50
*ED- Fall Risk Assessment Last Done: 02/25/25 16:49
*ED COVID-19 Vaccine History Last Done: 02/25/25 16:49
*ED Influenza Vaccine History Last Done: 02/25/25 16:49
ED-Musculoskeletal Assessment Last Done: 02/25/25 16:52
ED- Neurological Assessment Last Done: 02/25/25 16:51
ED-Skin Assessment Last Done: 02/25/25 16:52
Discharge Date and Time
Print Language: CYMRAES
[2025-02-25 17:56] LABS: Hematocrit 40.4 % (37.0-47.0); Hemoglobin 13.6 g/dL (12.0-16.0); Mean Corp Hgb Conc. 33.7 g/dL (33.0-37.0); Mean Corpuscular Volume 87.3 fL (81.0-99.0); Nucleated Red Blood Cells % 0 %; Platelet Count 247 10^3/uL (130-400); Red Cell Dist. Width 13.0 % (11.5-14.5)
[2025-02-25 18:20] LABS: ALT (SGPT) 83 U/L (0-35); AST (SGOT) 134 U/L (14-36); Albumin 4.0 g/dl (3.5-5.0); Alkaline Phosphatase 130 U/L (38-126); Blood Urea Nitrogen 25 mg/dl (7-17); Calcium 10.2 mg/dl (8.4-10.2); Carbon Dioxide 25 mmol/L (22-30); Chloride 99 mmol/L (98-107); Estimated Creatinine Clearance 49 ml/min; Glucose 100 mg/dl (70-99); Magnesium 2.0 mg/dl (1.6-2.3); Potassium 4.5 mmol/L (3.5-5.1); Sodium 131 mmol/L (135-145); Total Protein 6.7 g/dl (6.3-8.2); eGFR 59.86
[2025-02-25 18:24] LABS: Troponin I < 0.012 ng/ml
--- NOTE | 2025-02-25 21:33 | HPS.HSE ---
Family Physician
-
Family Physician: Cecil Lerma Jr.
Chief Complaint
-
Syncope
History of Present Illness
74-year-old woman had a syncopal episode. The patient was found unconscious and later regained consciousness, feeling warm. The patient reported having a headache throughout the day. She also had cold sensations in her hands, numb fingertips that
appeared discolored, 'like black and white.' In the ER ECG showed normal sinus rhythm. The patient denied chest pain or any other pain and did not report any known triggers prior to the episode. At the time of my interview she was comfortably.
She was recently at , the 12/28/24 DC summary stated:
'Principal Discharge diagnosis:
Syncope secondary to torsades de pointes, QTc prolongation
Hypokalemia
Atrial fibrillation
Chronic Discharge diagnosis:
Fibromyalgia,
GERD,
Migraines,
Panic attacks,
Paroxysmal atrial fibrillation,
Type II DM,
Essential HTN,
Hyperlipidemia,
Polymyalgia Rheumatica,
Asthma
Hospital Course:
Patient presented to ED by EMS on the 12/23/2024 after syncopal episode during red light and then another one at home when EMS arrived. She was placed on monitor and found to be in VT. CPR was initiated and she converted to sinus rhythm. She was
on Tikosyn for A-fib control, for the last 6 weeks on Mounjaro and had decreased appetite and had 40lbs weight loss. She was admitted to ICU for pressors and maintained on Dopamine ggt. Overnight she had an episode of Ventricular tachycardia-
Torsades Pointes. Multiple meds as possible triggers (atenolol, Tikosyn, duloxetine, paroxetine, unclear if any effects from Mounjaro?) were discontinued. On EKG QTc was prolonged initially 700+ ms. On echo LVEF 60%. Hypokalemia and Magnesium was
repleted. QTc was improved, spironolatone and atenolol was started. Cardiology evaluated, no plans for ICD placement. On the 12/28 potassium WNL started on spironolactone and restarted atenolol. Patient will be discharged on the 12/28 and monitored
for 2 weeks on rhythm star. Avoid QT prolonging agents.'
Medical History
Past Medical History
Past Medical History: Reports Other
Additional Past Medical History:
Syncope secondary to torsades de pointes, QTc prolongation
Hypokalemia
Atrial fibrillation
Fibromyalgia,
GERD,
Migraines,
Panic attacks,
Paroxysmal atrial fibrillation,
Type II DM,
Essential HTN,
Hyperlipidemia,
Polymyalgia Rheumatica,
Asthma
Sacroiliac joint dysfunction of both sides
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
Atherosclerosis of aorta
Left lumbar radiculopathy
Decreased dorsalis pedis pulse
Status post arthroscopy of knee
Chronic pain disorder
Status post total left knee replacement
History of spinal fusion
Severe obesity (BMI 35.0-39.9)
Spinal cord stimulator status
History of pulmonary embolism
Frequent UTI
Cardiac arrest
Past Surgical History: Reports Other
Additional Past Surgical History:
See above
Social History
Tobacco: Non-smoker
Alcohol: None
Drug: None
Personal:
Living: With Family
Family History
Family History: Not pertinent
Allergies / Home Medications
Allergies reflects when Allergies were last updated in [facility].
Home Medications with original date entered in [facility]
Allergy/Medication List:
Allergies
Allergy/AdvReac Type Severity Reaction Status Date / Time
amoxicillin Allergy Unknown Verified 12/23/24 23:20
cefuroxime (From Ceftin) Allergy Hives Verified 12/23/24 23:20
clindamycin Allergy irritates Verified 12/23/24 23:20
esophagus
erythromycin base Allergy stomch Verified 12/23/24 23:20
pain-tolerates
azithromycin
nitrofurantoin (From Allergy Unknown Verified 12/23/24 23:20
Macrobid)
Penicillins Allergy Anaphylaxis, Verified 12/23/24 23:20
throat
closes
pollen extracts Allergy stuffy nose Verified 12/23/24 23:20
simvastatin Allergy Rash Verified 12/23/24 23:20
Sulfa (Sulfonamide Allergy Hives - Verified 12/23/24 23:20
Antibiotics) Red rash
Home Medications
metformin 500 mg tablet 500 mg PO DAILY Diabetes 10/27/14
rivaroxaban 20 mg tablet (Xarelto) 20 mg PO QPM Blood clot prevention/tx ##0 02/01/21
rosuvastatin 40 mg tablet 40 mg PO QPM High Cholesterol 08/20/22
ergocalciferol (vitamin D2) 1,250 mcg (50,000 unit) capsule (Vitamin D2) 1,250 mcg PO SA Supplement 09/29/23
furosemide 40 mg tablet 40 mg PO DAILYPRN PRN Edema 09/29/23
methenamine hippurate 1 gram tablet 1 g PO BID Urinary Issue 09/29/23
ykoqesecmw-csuwkfvvgkszs-urcrpfwi 50 mg-300 mg-40 mg capsule 1 cap PO Q6HPRN PRN migraine 03/02/24
cyanocobalamin 2 mg-levomefolate darinel 1.13 mg-pyridoxine 25 mg tablet (Folbic RF) 1 tab PO DAILY Supplement 03/02/24
spironolactone 25 mg tablet 25 mg PO DAILY Fluid retention/BP 03/02/24
denosumab 60 mg/mL subcutaneous syringe (Prolia) 60 mg SC [id number] Osteoporosis 05/21/24
atenolol 25 mg tablet 12.5 mg PO BID Heart Disease/Condition 02/25/25
duloxetine 30 mg capsule,delayed release 30 mg PO DAILY Mental Health/Anxiety 02/25/25
fluticasone furoate 50 mcg/actuation blister powder for inhalation (Arnuity Ellipta) 50 mcg inhalation R DAILY sob 02/25/25
magnesium oxide 400 mg (241.3 mg magnesium) tablet 400 mg PO DAILY Supplement 02/25/25
potassium chloride 10 mEq capsule,extended release 10 meq PO DAILY Electrolyte Repletion 02/25/25
Review of Systems
-
History Source: Patient
A 12 point ROS was completed and negative except as noted: Yes
Physical Exam
Vital Signs
Vital Signs
Temp Pulse Resp BP Pulse Ox
98.5 F 62 26 105/46 97
02/25/25 16:42 02/25/25 21:00 02/25/25 21:00 02/25/25 21:00 02/25/25 21:00
Physical Exam
General: Well Developed, Well Nourished, No Apparent Distress, Comfortable, Conversant and Obese
HEENT: Moist mucous membranes, Atraumatic, Nose Appears Normal and Ears Appear Normal
Respiratory: Clear
Cardiac: S1/S2 and Regular Rhythm
GI: Soft, Non Tender and Non Distended
Musculoskeletal: No Clubbing and No Cyanosis
Skin: Warm and Dry; No Rash
Neuro: Awake, Alert, Oriented and AO x 3
Psych: Calm
Laboratory Results
-
02/25/25 17:00
02/25/25 17:00
Laboratory Results
Total Bilirubin 1.1 mg/dl (0.2-1.3) 02/25/25 17:00
AST 134 U/L (14-36) H 02/25/25 17:00
ALT 83 U/L (0-35) H 02/25/25 17:00
Alkaline Phosphatase 130 U/L (38-126) H 02/25/25 17:00
Troponin I < 0.012 ng/ml 02/25/25 17:00
Data Reviewed
-
Lab Data: Labs Reviewed by me
Impression/Plan
-
IMPRESSION:
74 woman with syncopal event, and history of syncopal events.
No acute issues shown on head CT.
PLAN:
1. Syncopal event - may be complicated by dehydration
Telemetry
HORACIO
Check mag
Other syncopal workup per protocol
Review data with cardiology in am
Gentle IV hydration overnight
2. h/O mi.
Continue current meds
HORACIO
3. Elevated LFTs
Follow daily for trend
May be from earlier Munjaro use
4. BUN/Creat > 20, (25/1.0)
Gentle hydration overnight
Full code
VCD for DVT (along with xarelto)
--- NOTE | 2025-02-25 23:27 | PTCARENOTE ---
Recieved pt. from ED. Pt oriented to unit and call boudreaux placed within reach. Pt care ongoing.
[2025-02-25] MEDS: NSS 1000 IV (23:51)
[2025-02-26 00:34] LABS: Magnesium 2.0 mg/dl (1.6-2.3)
[2025-02-26 00:48] LABS: Troponin I < 0.012 ng/ml
[2025-02-26 03:30] VITALS: BP 123/50
[2025-02-26 03:55] LABS: Troponin I < 0.012 ng/ml
[2025-02-26 05:56] VITALS: BMI 34.2
[2025-02-26 06:18] LABS: Hematocrit 37.6 % (37.0-47.0); Hemoglobin 12.8 g/dL (12.0-16.0); Mean Corp Hgb Conc. 34.0 g/dL (33.0-37.0); Mean Corpuscular Volume 89.1 fL (81.0-99.0); Platelet Count 191 10^3/uL (130-400); Red Cell Dist. Width 12.9 % (11.5-14.5)
[2025-02-26 06:51] LABS: Troponin I < 0.012 ng/ml
[2025-02-26 07:00] VITALS: BP 104/55
[2025-02-26 07:17] LABS: ALT (SGPT) 62 U/L (0-35); AST (SGOT) 53 U/L (14-36); Albumin 3.2 g/dl (3.5-5.0); Alkaline Phosphatase 103 U/L (38-126); Blood Urea Nitrogen 21 mg/dl (7-17); Calcium 9.2 mg/dl (8.4-10.2); Carbon Dioxide 27 mmol/L (22-30); Chloride 105 mmol/L (98-107); Estimated Creatinine Clearance 45 ml/min; Glucose 90 mg/dl (70-99); HDL Cholesterol 58 mg/dl; LDL Cholesterol, Calculated 73 mg/dl; Magnesium 2.1 mg/dl (1.6-2.3); Potassium 4.5 mmol/L (3.5-5.1); Sodium 134 mmol/L (135-145); Total Protein 5.8 g/dl (6.3-8.2); Very Low Density Lipoprotein 19 mg/dl (0-30); eGFR 53.39
[2025-02-26 07:29] LABS: Glucose - Point of Care 80 mg/dl (70-99)
[2025-02-26] MEDS: FLOVENT 44 MCG INHALER 1 PUFF INH ×2 (07:50)
--- NOTE | 2025-02-26 08:25 | W.PN.HOSP.TC ---
Addendum entered and electronically signed by Rigoberto Rodney MD 02/26/25 12:40:
Attending�addendum:
I saw and evaluated the patient. I reviewed the resident�s note and agree with findings and plan as documented in the resident�s note.��patient seen and examined at bedside, denies any chest pain or shortness of breath, no abdominal pain, no nausea,
no vomiting, no diarrhea or constipation.
Admitted overnight to syncope, seen by cardiology and plan for pacemaker on Friday
Physical�exam:
GENERAL : Patient is awake, alert, oriented x3
HEENT: Nonicteric sclerae, PERRLA, EOMI. Oropharynx clear. Moist mucous membranes. Conjunctivae appear well perfused.
CHEST: Chest wall is nontender.
HEART: Regular rate and rhythm without murmurs.
LUNGS: Clear to auscultation bilaterally.
ABDOMEN: Soft, positive bowel sounds, nontender, no organomegaly.
RECTAL: Deferred.
MUSCLES/EXTREMITIES: No abnormal range of motion, no swelling.SKIN: No rash, no excessive bruising, petechiae, or purpura.
NEUROLOGIC: Cranial nerves II-XII intact without motor/sensory deficit.
�
Assessment/plan:
Syncope.
Possible cardiogenic.
History of torsade the point and cardiac arrest on November 2024.
Seen by cardiology.
Pacemaker Friday
Paroxysmal A-fib.
Now in sinus rhythm
CODE STATUS: Full code
DVT prophylaxis: Xarelto
Diet:DM diet
Family communication: Discussed with daughter.
Disposition: Pacemaker Friday
�
Total time spent on today�s encounter was 51 minutes which included time spent in counseling the patient/family regarding diagnosis and treatment plan as listed above, goals of care, and symptom management. Case was discussed with nursing staff,
specialists, and care coordinators/case management. All labs and imaging personally reviewed by me. Remainder the time spent in detailed review of previous records, lab data, imaging, and other medical provider documentation.
Original Note:
Today's Communication/Plan
-
Cardiology consult
Trend labs
Continue IV fluids
Assessment / Plan
Assessment / Plan
ASSESSMENT:
A 74-year-old woman with a past medical history of atrial fibrillation, hypertension, type 2 diabetes mellitus, hyperlipidemia, polymyalgia rheumatica, GERD presenting with recurrent syncopal episodes. Prior history significant for torsades de
pointes with prolonged QT (700+ ms) 2 months ago. Current episode likely due to dehydration with improvement after IV fluids.
PLAN:
# Syncope- may be secondary to dehydration
Prior history of torsades de pointes
Echo 12/24/24: Ejection fraction 60%, mild mitral regurgitation, trace tricuspid regurgitation
Current EKG with normal sinus rhythm. Continue on telemetry.
Maintain adequate hydration. Continue IV fluids as needed.
Trend BMP
Cardiology consult for further evaluation given arrhythmia history.
#Hyponatremia -improving
Likely hypovolemic in the setting of dehydration
Na improving from 131 --> 134 with IV fluids
Trend BMP
#Elevated BUN/CR ratio -improving
Likely prerenal from dehydration
02/25/2025 BUN/Cr 25 --> improved to 19 on 02/26/2025
Continue IV fluids. Monitor renal function.
# Elevated liver function tests -improving
Possibly related to recent Mounjaro use
AST/ALT improved 143/83 --> 53/62
Trend CMP.
# History of atrial fibrillation
# History of torsades de pointes
Avoid QT prolonging medications
Continue home cardiac medications as appropriate
Maintain K/ Mg at appropriate levels
# History of myocardial infarction/cardiovascular disease
# Essential hypertension
Continue home aspirin, statin
BP at home 120s/70s usually
Anticipated Discharge: 24 - 48 hours
Subjective/Interval History
-
Date of Service: February 26, 2025
Patient evaluated at bedside this morning. She states she feels better. No new complaints. She is eager to talk to the [facility] team today.
Objective Data
-
Labs:
Laboratory Results
02/26/25
06:03
WBC 11.6 H
Hgb 12.8
Hct 37.6
Plt Count 191 D
Sodium 134 L
Potassium 4.5
Chloride 105
Carbon Dioxide 27
BUN 21 H
Creatinine 1.1 H
Glucose 90
Calcium 9.2
Total Bilirubin 1.0
AST 53 H
ALT 62 H
Alkaline Phosphatase 103
Vital Signs:
Vital Signs
Temp Pulse Resp BP Pulse Ox
98.3 F 72 16 104/55 98
02/26/25 07:00 02/26/25 07:55 02/26/25 07:55 02/26/25 07:00 02/26/25 07:55
I&O
02/25/25 02/26/25 02/27/25
06:59 06:59 05:59
Intake Total 525 / 525
Output Total 800 / 800
Balance -275 / -275
Review of Systems
-
History Source: Patient
All other systems: Reviewed and negative
Constitutional: Reports No Symptoms
EENT: Reports No Symptoms Reported
Respiratory: Reports No Symptoms
Abdomen/GI: Reports No Symptoms
Breast: Reports No Symptoms
Genitourinary: Reports No Symptoms
Musculoskeletal: Reports No Symptoms
Skin: Reports No Symptoms
Neuro: Reports No Symptoms
Endocrine: Reports No Symptoms
Physical Exam
-
General: Well Developed, Well Nourished, No Apparent Distress, Comfortable and Conversant
HEENT: Normocephalic, Atraumatic and Moist Mucous Membranes
Respiratory: Clear to Auscultation
Cardiac: Regular Rhythm and S1/S2 (No murmur)
GI: Soft, Nontender, Nondistended and Normal Bowel Sounds
Musculoskeletal: No Clubbing, No Cyanosis and No Edema
Skin: Warm
Neuro: Awake and AO x 3
Psych: Calm
Data Reviewed
-
CT Scan: Report Reviewed by me and Discussed with Physician
Labs: Labs Reviewed by me, Discussed with Physician and Discussed with Patient
Old Records: Reviewed
[2025-02-26 08:42] LABS: Glycohemoglobin (HgbA1c) 5.6 % (4.0-5.9)
[2025-02-26] MEDS: MAGNESIUM OXIDE 400 MG PO (09:28)
[2025-02-26] MEDS: GLUCOPHAGE 500 MG PO (09:28)
[2025-02-26] MEDS: KCL 10 MEQ PO (09:28)
[2025-02-26] MEDS: HIPREX 1 GRAM PO ×2 (09:28→20:45)
[2025-02-26] MEDS: CYMBALTA DELAYED RELEASE 30 MG PO (09:28)
[2025-02-26] MEDS: ALDACTONE PO (09:28)
[2025-02-26] MEDS: DRISDOL (VITAMIN D2) 50000 UNITS PO (09:33)
--- NOTE | 2025-02-26 10:50 | CON.CAR ---
Addendum entered and electronically signed by Sebastian Vázquez MD 02/26/25 11:33:
Patient seen, interviewed and examined by me.
Well-appearing, no acute distress
Regular rate and rhythm with normal S1 and S2, no S3 no S4. There is a grade 1/6 apical holosystolic murmur and no rubs. PMI is normally placed.
Lungs are clear to auscultation bilaterally without wheezes rales or rhonchi.
Abdomen soft nontender nondistended with normoactive bowel sounds
Extremities show trace pretibial edema bilaterally no clubbing or cyanosis.
Neurologic exam is grossly nonfocal.
I reviewed her case in detail with her.
The most likely diagnosis for her recurrent syncope is vasovagal in origin.
There was an episode of syncope captured in the emergency department while she was monitored demonstrating the development of marked sinus bradycardia with junctional escape at 35 bpm.
There was no ventricular arrhythmia.
I reviewed her EKGs from this hospital stay and her QT interval is normal.
I do not believe that her syncope is due to ventricular arrhythmias.
I had a long discussion with her that pacemaker implantation as a treatment for vasovagal syncope should not be expected to eliminate all of her symptoms. It does seem that she has a significant cardioinhibitory component but is likely as is the
case with most patients that she has a vasodepressor component as well. PPM implantation and use of specific algorithm such as rate drop hysteresis would be expected to help alleviate but may not completely eliminate her symptoms. The goal would
be to prevent syncope but she may still have episodes of dizziness. She understands this and she feels this would still be of significant benefit to her.
Will therefore plan for permanent pacemaker implantation on Friday.
In the meantime continue to monitor telemetry for any other arrhythmias which may be playing a role.
Original Note:
Consultation
Consultation Request
Date/Time Consultation Performed: 02/26/25
Requesting Provider: Dr. Rodney
Performing Provider: Jessica Hill PA-C for Dr. Wil Vázquez
Reason for Consultation: syncope
Medical History
-
Chief Complaint: syncope
History of Present Illness:
Patient is a 74-year-old female with past medical history of hospitalization at [facility] 11/2024 with recurrent syncope felt to be secondary to polymorphic VT due to significantly prolonged QT/torsades from combination of Tikosyn, Cymbalta,
Mounjaro, electrolyte derangement. Involve medications were discontinued with no plan to restart. She underwent outpatient 14-day monitor completed 01/11/2025 which did not show any recurrence of ventricular arrhythmia. She reports she has been
doing well until yesterday where she felt she was cold all day. She reports her fingers were dusky in appearance. She states she laid on the couch under a blanket, however then got up to go to the bathroom and reports she woke up on the floor.
She denies significant prodromal symptoms aside from maybe a very quick warm flushing feeling. She denies chills or fever. Due to syncopal episode, patient was brought into ER. Reportedly had an additional syncopal episode in ER while laying in
bed as nurse was going to put in IV. Pads were placed and patient believes she received dose of atropine with improvement, unclear by looking at JUN, as HRs were in 30s. Only medication changes were patient was started on duloxetine for pain ~ 1
month ago and she was on recent course of prednisone for neuropathy.
PMH:
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
PAF status post pulsed field ablation 04/2024
Subclinical CAD/coronary artery calcification
Aortic and cerebrovascular atherosclerosis
GERD
Hypertension
Hypercholesterolemia
Type 2 diabetes with polyneuropathy
Depression
Sleep apnea with history of UVP
Pulmonary embolus DVT
Asthma
Morbid obesity
Migraines
Spinal stenosis
40 pounds weight loss with tirzepatide
Past Medical History
Past Medical History: Arrhythmias (Paroxysmal atrial fibrillation status post pulsed field ablation April 2024, on dofetilide), CAD (Subclinical, coronary artery calcification, aortic calcification), GERD, HTN, Hypercholesterolemia, NIDDM,
Psychiatric (Depression) and Other (Mild obstructive sleep apnea with history of UVP, history of pulmonary embolus and DVT, history of asthma, diabetic polyneuropathy, morbid obesity, cerebrovascular atherosclerosis, migraines)
Past Surgical History: Other (Tonsillectomy, , D&C, multiple BLANCA's with prior L3-L4 and L4-L5 laminectomy/fusions, with rhizotomies, carpal tunnel's, right knee arthroscopy, UVP, spinal cord stimulator, hysterectomy with BSO)
Social History
Tobacco: Non-Smoker
Alcohol: None
Drug: None
Personal:
Living: With Family
Employment: Retired
Family History
Family History: Reviewed & Not Pertinent
Allergies / Home Medications
Allergy/AdvReac Type Severity Reaction Status Date / Time
amoxicillin Allergy Unknown Verified 12/23/24 23:20
cefuroxime (From Ceftin) Allergy Hives Verified 12/23/24 23:20
clindamycin Allergy irritates Verified 12/23/24 23:20
esophagus
erythromycin base Allergy stomch Verified 12/23/24 23:20
pain-tolerates
azithromycin
nitrofurantoin (From Allergy Unknown Verified 12/23/24 23:20
Macrobid)
Penicillins Allergy Anaphylaxis, Verified 12/23/24 23:20
throat
closes
pollen extracts Allergy stuffy nose Verified 12/23/24 23:20
simvastatin Allergy Rash Verified 12/23/24 23:20
Sulfa (Sulfonamide Allergy Hives - Verified 12/23/24 23:20
Antibiotics) Red rash
�Medication �Instructions �Recorded �Confirmed �Type
metformin 500 mg tablet 500 mg PO DAILY Diabetes 10/27/14 02/25/25 History
rivaroxaban 20 mg tablet (Xarelto) 20 mg PO QPM Blood clot 02/01/21 02/25/25 Rx
prevention/tx ##0
rosuvastatin 40 mg tablet 40 mg PO QPM High Cholesterol 08/20/22 02/25/25 History
ergocalciferol (vitamin D2) 1,250 1,250 mcg PO SA Supplement 09/29/23 02/25/25 History
mcg (50,000 unit) capsule (Vitamin
D2)
furosemide 40 mg tablet 40 mg PO DAILYPRN PRN Edema 09/29/23 02/25/25 History
methenamine hippurate 1 gram tablet 1 g PO BID Urinary Issue 09/29/23 02/25/25 History
xihgkkdohc-peulwhmlnetnr-ybxxalkx 1 cap PO Q6HPRN PRN migraine 03/02/24 02/25/25 History
50 mg-300 mg-40 mg capsule
cyanocobalamin 2 mg-levomefolate 1 tab PO DAILY Supplement 03/02/24 02/25/25 History
darinel 1.13 mg-pyridoxine 25 mg
tablet (Folbic RF)
spironolactone 25 mg tablet 25 mg PO DAILY Fluid retention/BP 03/02/24 02/25/25 History
denosumab 60 mg/mL subcutaneous 60 mg SC [id number] Osteoporosis 05/21/24 02/25/25 History
syringe (Prolia)
atenolol 25 mg tablet 12.5 mg PO BID Heart 02/25/25 02/25/25 History
Disease/Condition
duloxetine 30 mg capsule,delayed 30 mg PO DAILY Mental 02/25/25 02/25/25 History
release Health/Anxiety
fluticasone furoate 50 50 mcg inhalation R DAILY sob 02/25/25 02/25/25 History
mcg/actuation blister powder for
inhalation (Arnuity Ellipta)
magnesium oxide 400 mg (241.3 mg 400 mg PO DAILY Supplement 02/25/25 02/25/25 History
magnesium) tablet
potassium chloride 10 mEq 10 meq PO DAILY Electrolyte 02/25/25 02/25/25 History
capsule,extended release Repletion
Review of Systems
-
History Source: Patient and Family
All other systems: Negative unless noted
Physical Exam
Vital Signs
Temp Pulse Resp BP Pulse Ox
98.3 F 58 16 104/55 98
02/26/25 07:00 02/26/25 09:28 02/26/25 07:55 02/26/25 09:28 02/26/25 07:55
Lab Results
02/26/25 06:03
02/26/25 06:03
Troponin I < 0.012 ng/ml 02/26/25 06:03
Physical Exam
General: No Apparent Distress and Comfortable
HEENT: Normocephalic, Anicteric and Moist Mucous Membranes
Respiratory: Clear and Non Labored Respirations
Cardiac: S1/S2 and Regular Rhythm
GI: Soft, Non Tender, Non Distended and Normal Bowel Sounds
Musculoskeletal: No Clubbing, No Cyanosis and No Edema
Skin: Warm and Dry
Neuro: AO x 3
Impression / Plan
-
Primary Electronic Warfare Technician: Dr. White
Assessment:
Presentation with syncopal episode, with additional syncopal episode in ER with associated transient junctional rhythm
Leukocytosis
UNA
Elevated LFTs
Syncope secondary to polymorphic VT with QT prolongation on dofetilideserg 11/2024
PAF status post pulsed field ablation 04/2024
Subclinical CAD/coronary artery calcification
Aortic and cerebrovascular atherosclerosis
GERD
Hypertension
Hypercholesterolemia
Type 2 diabetes with polyneuropathy
Depression
Sleep apnea with history of UVP
Pulmonary embolus DVT
Asthma
Morbid obesity
Migraines
Spinal stenosis
40 pounds weight loss with tirzepatide
ECHO 12/24/2024: EF 60%, mild MR, trace TR
Plan:
- Patient presents with syncopal episode x2 after recent admission 11/2024 for syncope felt to be secondary to polymorphic VT with QT prolongation on dofetilide, mounjaro, electrolyte abnormalities
- Head CT negative for acute abnormality
- She is noted to have leukocytosis, mild UNA and transaminitis, however no clear infectious process. Would rule out infectious etiology in interim. Receiving IV fluid
- It is possible that syncopal episodes are vasovagal in etiology, however given her history of syncope, as well as episode of what appears to be transient junctional rhythm associated with episode of syncope in ER 02/25, likely would benefit from
placement of pacemaker, tentatively would plan for Wednesday 02/28
- QTc stable by EKGs. In sinus rhythm on telemetry overnight with no further bradycardia noted. Continue to avoid QT prolonging medications. holding OP atenolol
- Recent echo with results as above
- Troponins negative x 2
- Discussed with patient and daughter at bedside
Data Reviewed
-
EKG: Tracing Personally Visualized and interpreted
CT Scan: Report Reviewed by me
Medical Tests (Nuc Med, Echo etc): Report Reviewed by me
Labs: Labs Reviewed by me
Old Records: Reviewed
[2025-02-26 11:00] VITALS: BP 111/56
[2025-02-26 11:36] LABS: Glucose - Point of Care 105 mg/dl (70-99)
[2025-02-26] MEDS: FIORICET 1 TAB PO (12:18)
[2025-02-26 15:00] VITALS: BP 110/54
--- NOTE | 2025-02-26 16:21 | CM ---
shellfish manager reviewed patient's chart and met with patient and patient lives with her spouse in a 2 story home, with 2 steps to enter, patient is independent with adl's and ambulation, patient has a walker and cane in home, home with spouse when
stable.
PCP: Cecil Lerma
Pharmacy: [facility].
[2025-02-26 16:39] LABS: Glucose - Point of Care 100 mg/dl (70-99)
[2025-02-26] MEDS: NON-FORMULARY ITEM 1 PUMP TOPICAL ×2 (16:43→22:21)
[2025-02-26] MEDS: CRESTOR 40 MG PO (16:45)
[2025-02-26] MEDS: NSS 1000 IV (16:47)
[2025-02-26 19:23] VITALS: BP 138/64
[2025-02-26 21:47] LABS: Glucose - Point of Care 58 mg/dl (70-99)
[2025-02-26 22:26] LABS: Glucose - Point of Care 96 mg/dl (70-99)
[2025-02-26 23:00] VITALS: BP 145/70
[2025-02-27] VITALS (8 sets, daily range): BP systolic 111–170; BP diastolic 57–88; BMI 33.5
--- NOTE | 2025-02-27 | PTCARENOTE ---
Around 0000, Pt started getting shaky and felt like her hands were cold. This RN checked her temp it was 99.1. 15 min later, pt O2 started to dip to 87%. Pt also stated that her fingers felt like they were getting numb and she was still shivering
stating that this is how she felt right before she had her syncopal episodes. This RN put Pt on 2L of O2, rechecked her temp (98.6), and her BP (170/88). About 20 minutes later with Pts O2 at 98-100, this RN went into pt's room and she said she felt
a lot better, much more calm with no more shivering or numbness. Her BP is now 116/64. FRONT END UI DEVELOPER notified. No further orders.
[2025-02-27] MEDS: FIORICET 1 TAB PO ×2 (00:24→14:46)
[2025-02-27 03:51] LABS: Glucose - Point of Care 89 mg/dl (70-99)
[2025-02-27] MEDS: NSS 1000 IV ×2 (04:10→17:21)
--- NOTE | 2025-02-27 07:27 | W.PN.HOSP.TC ---
Addendum entered and electronically signed by Rigoberto Rodney MD 02/27/25 13:44:
Attending�addendum:
I saw and evaluated the patient. I reviewed the resident�s note and agree with findings and plan as documented in the resident�s note.��patient seen and examined at bedside, denies any chest pain or shortness of breath, no abdominal pain, no nausea,
no vomiting, no diarrhea or constipation.
overnight developed shaking and rigors which improved with oxygen.
Physical�exam:
GENERAL : Patient is awake, alert, oriented x3
HEENT: Nonicteric sclerae, PERRLA, EOMI. Oropharynx clear. Moist mucous membranes. Conjunctivae appear well perfused.
CHEST: Chest wall is nontender.
HEART: Regular rate and rhythm without murmurs.
LUNGS: Clear to auscultation bilaterally.
ABDOMEN: Soft, positive bowel sounds, nontender, no organomegaly.
RECTAL: Deferred.
MUSCLES/EXTREMITIES: No abnormal range of motion, no swelling.SKIN: No rash, no excessive bruising, petechiae, or purpura.
NEUROLOGIC: Cranial nerves II-XII intact without motor/sensory deficit.
�
Assessment/plan:
Syncope.
Possible cardiogenic.
History of torsade the point and cardiac arrest on November 2024.
Seen by cardiology.
Pacemaker Friday
Paroxysmal A-fib.
Now in sinus rhythm
CODE STATUS: Full code
DVT prophylaxis: Xarelto
Diet:DM diet
Family communication: Discussed with daughter.
Disposition: Pacemaker Friday
�
Total time spent on today�s encounter was 51 minutes which included time spent in counseling the patient/family regarding diagnosis and treatment plan as listed above, goals of care, and symptom management. Case was discussed with nursing staff,
specialists, and care coordinators/case management. All labs and imaging personally reviewed by me. Remainder the time spent in detailed review of previous records, lab data, imaging, and other medical provider documentation.
Original Note:
Today's Communication/Plan
-
Pacemaker Friday02/28/25
Assessment / Plan
Assessment / Plan
ASSESSMENT:
A 74-year-old woman with a past medical history of atrial fibrillation, hypertension, type 2 diabetes mellitus, hyperlipidemia, polymyalgia rheumatica, GERD presenting with recurrent syncopal episodes. Prior history significant for torsades de
pointes with prolonged QT (700+ ms) 2 months ago. Current episode likely due to dehydration with improvement after IV fluids.
PLAN:
# Syncope- may be secondary to dehydration
Prior history of torsades de pointes
Echo 12/24/24: Ejection fraction 60%, mild mitral regurgitation, trace tricuspid regurgitation
Current EKG with normal sinus rhythm. Continue on telemetry.
Maintain adequate hydration. Continue IV fluids as needed.
Trend BMP
Cardiology consulted: Syncope most likely vasovagal in origin, no arrhythmia, QT normal, Permanent pacemaker implantation on Friday.
#Hyponatremia -improving
Likely hypovolemic in the setting of dehydration
Na improving from 131 --> 134 with IV fluids. Na 138 on 02/27/2025.
Trend BMP
#Elevated BUN/CR ratio -improving
Likely prerenal from dehydration
02/25/2025 BUN/Cr 25 --> improved to 19 on 02/26/2025 --> 16 on 02/27/2025
# Elevated liver function tests -improving
Possibly related to recent Mounjaro use
AST/ALT improved 143/83 --> 53/62
Trend CMP.
# History of atrial fibrillation
# History of torsades de pointes
Avoid QT prolonging medications
Continue home cardiac medications as appropriate
Maintain K/ Mg at appropriate levels
# History of myocardial infarction/cardiovascular disease
# Essential hypertension
Continue home aspirin, statin
BP at home 120s/70s usually
CODE STATUS: Full code
DVT prophylaxis: Xarelto
Anticipated Discharge: > 48 hours
Subjective/Interval History
-
Date of Service: February 27, 2025
Patient evaluated at bedside this morning. She states she had a similar episode of discoloration of hands along with feeling like her heart rate was down. Currently, patient feels well. No new complaints.
Objective Data
-
Labs:
Laboratory Results
02/27/25
06:00
WBC Pending
Hgb Pending
Hct Pending
Plt Count Pending
Sodium Pending
Potassium Pending
Chloride Pending
Carbon Dioxide Pending
BUN Pending
Creatinine Pending
Glucose Pending
Calcium Pending
Total Bilirubin Pending
AST Pending
ALT Pending
Alkaline Phosphatase Pending
Vital Signs:
Vital Signs
Temp Pulse Resp BP Pulse Ox
98.2 F 59 18 111/60 100
02/27/25 03:30 02/27/25 03:30 02/27/25 03:30 02/27/25 03:30 02/27/25 03:30
I&O
02/26/25 02/27/25 02/28/25
06:59 05:59 06:59
Intake Total 525 / 525 1380 / 1380
Output Total 800 / 800
Balance -275 / -275 1380 / 1380
Review of Systems
-
History Source: Patient
Constitutional: Reports No Symptoms
EENT: Reports No Symptoms Reported
Respiratory: Reports No Symptoms
Abdomen/GI: Reports No Symptoms
Breast: Reports No Symptoms
Genitourinary: Reports No Symptoms
Musculoskeletal: Reports No Symptoms
Neuro: Reports No Symptoms
Endocrine: Reports No Symptoms
Hematologic / Lymphatic: Reports No Symptoms
Allergy / Immunology: Reports No Symptoms
Physical Exam
-
General: Well Developed, Well Nourished, No Apparent Distress, Comfortable, Conversant and Obese
HEENT: Normocephalic, Atraumatic, Moist Mucous Membranes and Anicteric
Respiratory: Clear to Auscultation
Cardiac: Regular Rhythm and S1/S2
GI: Soft, Nontender, Nondistended, Normal Bowel Sounds and No Hepatosplenomegaly
Musculoskeletal: No Clubbing, No Cyanosis, Edema, Left Upper Extrem and Edema, Right Lower Extrem
Skin: Warm
Neuro: Awake and AO x 3
Psych: Calm and Intact Judgement/Insight
Data Reviewed
-
Labs: Labs Reviewed by me, Discussed with Physician and Discussed with Patient
Old Records: Reviewed
[2025-02-27 08:05] LABS: Glucose - Point of Care 65 mg/dl (70-99)
[2025-02-27 08:15] LABS: Glucose - Point of Care 86 mg/dl (70-99)
[2025-02-27 08:37] LABS: Hematocrit 37.9 % (37.0-47.0); Hemoglobin 12.8 g/dL (12.0-16.0); Mean Corp Hgb Conc. 33.8 g/dL (33.0-37.0); Mean Corpuscular Volume 89.4 fL (81.0-99.0); Nucleated Red Blood Cells % 0 %; Platelet Count 193 10^3/uL (130-400); Red Cell Dist. Width 12.7 % (11.5-14.5)
[2025-02-27 08:56] LABS: ALT (SGPT) 55 U/L (0-35); AST (SGOT) 38 U/L (14-36); Albumin 3.5 g/dl (3.5-5.0); Alkaline Phosphatase 140 U/L (38-126); Blood Urea Nitrogen 16 mg/dl (7-17); Calcium 8.8 mg/dl (8.4-10.2); Carbon Dioxide 25 mmol/L (22-30); Chloride 106 mmol/L (98-107); Estimated Creatinine Clearance 49 ml/min; Glucose 79 mg/dl (70-99); Magnesium 2.1 mg/dl (1.6-2.3); Potassium 4.0 mmol/L (3.5-5.1); Sodium 138 mmol/L (135-145); Total Protein 6.0 g/dl (6.3-8.2); eGFR 59.86
[2025-02-27] MEDS: CYMBALTA DELAYED RELEASE 30 MG PO (09:06)
[2025-02-27] MEDS: KCL 10 MEQ PO (09:06)
[2025-02-27] MEDS: HIPREX 1 GRAM PO ×2 (09:06→20:28)
[2025-02-27] MEDS: GLUCOPHAGE 500 MG PO (09:07)
[2025-02-27] MEDS: ALDACTONE 25 MG PO (09:07)
[2025-02-27] MEDS: MAGNESIUM OXIDE 400 MG PO (09:07)
[2025-02-27] MEDS: NON-FORMULARY ITEM 1 PUMP TOPICAL ×3 (09:09→22:49)
[2025-02-27 12:14] LABS: Glucose - Point of Care 84 mg/dl (70-99)
--- NOTE | 2025-02-27 15:15 | W.PN.CARDCBS ---
Today's Communication / Plan
-
plan for PPM olga lidia
Impression / Plan
-
Primary Revival Clerk: Dr. White
Assessment:
Presentation with syncopal episode, with additional syncopal episode in ER with associated transient junctional rhythm
Leukocytosis
UNA
Elevated LFTs
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
PAF status post pulsed field ablation 04/2024
Subclinical CAD/coronary artery calcification
Aortic and cerebrovascular atherosclerosis
GERD
Hypertension
Hypercholesterolemia
Type 2 diabetes with polyneuropathy
Depression
Sleep apnea with history of UVP
Pulmonary embolus DVT
Asthma
Morbid obesity
Migraines
Spinal stenosis
40 pounds weight loss with tirzepatide
ECHO 12/24/2024: EF 60%, mild MR, trace TR
Plan:
- Patient presents with syncopal episode x2 after recent admission 11/2024 for syncope felt to be secondary to polymorphic VT with QT prolongation on dofetilide, mounjaro, electrolyte abnormalities
- Head CT negative for acute abnormality
- She is noted to have leukocytosis, mild UNA and transaminitis, however no clear infectious process.
I reviewed her case in detail with her and her at bedside.
The most likely diagnosis for her recurrent syncope is vasovagal in origin.
There was an episode of syncope captured in the emergency department while she was monitored demonstrating the development of marked sinus bradycardia with junctional escape at 35 bpm.
There was no ventricular arrhythmia.
I reviewed her EKGs from this hospital stay and her QT interval is normal.
I do not believe that her syncope is due to ventricular arrhythmias.
I had a long discussion with her that pacemaker implantation as a treatment for vasovagal syncope should not be expected to eliminate all of her symptoms. It does seem that she has a significant cardioinhibitory component but it is likely, as is
the case with most patients, that she has a vasodepressor component as well. PPM implantation and use of specific algorithm such as rate drop hysteresis would be expected to help alleviate but may not completely eliminate her symptoms. The goal
would be to prevent syncope but she may still have episodes of dizziness. She understands this and she feels this would still be of significant benefit to her.
Will therefore plan for permanent pacemaker implantation on Friday.
In the meantime continue to monitor telemetry for any other arrhythmias which may be playing a role.
note, she has a spinal cord implant and we will need to evaluate for possible LADONNA with her pacemaker, will discuss with [employer] rep / engineers tomorrow
Progress Note - Revival Clerk
Subjective
Date of Service: February 27, 2025
no CP, SOB. palps
Objective
Labs:
02/27/25 07:47
02/27/25 07:47
Labs
Hgb 12.8 g/dL (12.0-16.0) 02/27/25 07:47
Hct 37.9 % (37.0-47.0) 02/27/25 07:47
Plt Count 193 10^3/uL (130-400) 02/27/25 07:47
Sodium 138 mmol/L (135-145) 02/27/25 07:47
Potassium 4.0 mmol/L (3.5-5.1) 02/27/25 07:47
BUN 16 mg/dl (7-17) 02/27/25 07:47
Creatinine 1.0 mg/dL (0.6-1.0) 02/27/25 07:47
Glucose 79 mg/dl (70-99) 02/27/25 07:47
Troponins
02/25/25 02/26/25 02/26/25
17:00 00:01 03:13
Troponin I < 0.012 < 0.012 < 0.012
02/26/25
06:03
Troponin I < 0.012
Vital Signs and I&O:
Vital Signs
Temp Pulse Resp BP Pulse Ox
98.6 F 58 18 131/64 100
02/27/25 11:27 02/27/25 11:27 02/27/25 11:27 02/27/25 11:27 02/27/25 11:27
Vital Signs
Temp Pulse Resp BP Pulse Ox
98.6 F 58 18 131/64 100
02/27/25 11:27 02/27/25 11:27 02/27/25 11:27 02/27/25 11:27 02/27/25 11:27
Intake & Output
02/25/25 02/26/25 02/27/25 02/28/25
06:59 06:59 05:59 06:59
Intake Total 525 / 525 1380 / 1380
Output Total 800 / 800
Balance -275 / -275 1380 / 1380
Physical Exam
Physical Exam
No distress
RRR
CTA B/L
No edema
[2025-02-27 16:28] LABS: Glucose - Point of Care 103 mg/dl (70-99)
[2025-02-27] MEDS: CRESTOR 40 MG PO (17:21)
[2025-02-27 21:55] LABS: Glucose - Point of Care 90 mg/dl (70-99)
[2025-02-28 00:15] LABS: Glucose - Point of Care 103 mg/dl (70-99)
[2025-02-28 03:05] LABS: Glucose - Point of Care 97 mg/dl (70-99)
[2025-02-28 03:21] VITALS: BP 115/61
[2025-02-28] MEDS: NSS 1000 IV (04:56)
[2025-02-28 06:00] VITALS: BMI 33.7
[2025-02-28 06:56] LABS: Glucose - Point of Care 89 mg/dl (70-99)
[2025-02-28 07:44] VITALS: BP 116/57
[2025-02-28] MEDS: FLOVENT 44 MCG INHALER 1 PUFF INH (07:49)
[2025-02-28 09:45] LABS: Hematocrit 37.9 % (37.0-47.0); Hemoglobin 12.4 g/dL (12.0-16.0); Mean Corp Hgb Conc. 32.7 g/dL (33.0-37.0); Mean Corpuscular Volume 92.0 fL (81.0-99.0); Nucleated Red Blood Cells % 0 %; Platelet Count 185 10^3/uL (130-400); Red Cell Dist. Width 12.8 % (11.5-14.5)
[2025-02-28] MEDS: HIPREX 1 GRAM PO ×2 (10:07→20:54)
[2025-02-28] MEDS: NON-FORMULARY ITEM 1 PUMP TOPICAL ×3 (10:07→20:55)
[2025-02-28] MEDS: MAGNESIUM OXIDE 400 MG PO (10:07)
[2025-02-28] MEDS: CYMBALTA DELAYED RELEASE 30 MG PO (10:07)
[2025-02-28] MEDS: ALDACTONE 25 MG PO (10:07)
[2025-02-28] MEDS: KCL 10 MEQ PO (10:07)
[2025-02-28] MEDS: GLUCOPHAGE PO (10:10)
[2025-02-28 10:20] LABS: ALT (SGPT) 40 U/L (0-35); AST (SGOT) 27 U/L (14-36); Albumin 3.2 g/dl (3.5-5.0); Alkaline Phosphatase 159 U/L (38-126); Blood Urea Nitrogen 10 mg/dl (7-17); Calcium 8.5 mg/dl (8.4-10.2); Carbon Dioxide 25 mmol/L (22-30); Chloride 106 mmol/L (98-107); Estimated Creatinine Clearance 54 ml/min; Glucose 82 mg/dl (70-99); Magnesium 2.0 mg/dl (1.6-2.3); Potassium 3.8 mmol/L (3.5-5.1); Sodium 136 mmol/L (135-145); Total Protein 5.8 g/dl (6.3-8.2); eGFR > 60.00
[2025-02-28 11:23] VITALS: BP 126/59
--- NOTE | 2025-02-28 11:44 | W.PN.HOSP.TC ---
Today's Communication/Plan
-
Pacemaker placement today
Assessment / Plan
Assessment / Plan
ASSESSMENT:
A 74-year-old woman with a past medical history of atrial fibrillation, hypertension, type 2 diabetes mellitus, hyperlipidemia, polymyalgia rheumatica, GERD presenting with recurrent syncopal episodes. Prior history significant for torsades de
pointes with prolonged QT (700+ ms) 2 months ago. Current episode likely due to dehydration with improvement after IV fluids.
PLAN:
# Syncope- may be secondary to dehydration
Prior history of torsades de pointes
Echo 12/24/24: Ejection fraction 60%, mild mitral regurgitation, trace tricuspid regurgitation
Current EKG with normal sinus rhythm. Continue on telemetry.
Maintain adequate hydration. Continue IV fluids as needed.
Trend BMP
Cardiology consulted: Syncope most likely vasovagal in origin, no arrhythmia, QT normal, Permanent pacemaker implantation today 02/28/2025
#Hyponatremia -improved
Likely hypovolemic in the setting of dehydration
Na improving from 131 --> 134 with IV fluids. Na 138 on 02/27/2025. Na 36 02/28/2025.
Trend BMP
#Elevated BUN/CR ratio -improved
Likely prerenal from dehydration
02/25/2025 BUN/Cr 25 --> 16 on 02/27/2025 --> 11 on 02/28/25
# Elevated liver function tests -improving
Possibly related to recent Mounjaro use
AST/ALT improved 143/83 --> 27/40
Trend CMP.
# History of atrial fibrillation
# History of torsades de pointes
Avoid QT prolonging medications
Continue home cardiac medications as appropriate
Maintain K/ Mg at appropriate levels
# History of myocardial infarction/cardiovascular disease
# Essential hypertension
Continue home aspirin, statin
BP at home 120s/70s usually
CODE STATUS: Full code
DVT prophylaxis: Xarelto
Anticipated Discharge: 24 - 48 hours
Subjective/Interval History
-
Date of Service: February 28, 2025
Patient evaluated at bedside this morning. She states she feels well, no new complaints. She slept well overnight.
Objective Data
-
Labs:
Laboratory Results
02/28/25
08:56
WBC 11.6 H
Hgb 12.4
Hct 37.9
Plt Count 185
Sodium 136
Potassium 3.8
Chloride 106
Carbon Dioxide 25
BUN 10
Creatinine 0.9
Glucose 82
Calcium 8.5
Total Bilirubin 0.7
AST 27
ALT 40 H
Alkaline Phosphatase 159 H
Vital Signs:
Vital Signs
Temp Pulse Resp BP Pulse Ox
98.4 F 59 16 126/59 99
02/28/25 11:23 02/28/25 11:23 02/28/25 11:23 02/28/25 11:23 02/28/25 11:23
I&O
02/27/25 02/28/25 03/01/25
05:59 06:59 06:59
Intake Total 1380 / 1380 2620 / 2620
Balance 1380 / 1380 2620 / 2620
Review of Systems
-
History Source: Patient
Constitutional: Reports No Symptoms
EENT: Reports No Symptoms Reported
Respiratory: Reports No Symptoms
Cardiac: Reports No Symptoms
Abdomen/GI: Reports No Symptoms
Breast: Reports No Symptoms
Genitourinary: Reports No Symptoms
Musculoskeletal: Reports No Symptoms
Skin: Reports No Symptoms
Neuro: Reports No Symptoms
Endocrine: Reports No Symptoms
Physical Exam
-
General: Well Developed, Well Nourished, No Apparent Distress, Comfortable and Conversant
HEENT: Normocephalic, Atraumatic, Moist Mucous Membranes and Anicteric
Respiratory: Clear to Auscultation
Cardiac: Regular Rhythm and S1/S2
GI: Soft, Nontender, Nondistended, Normal Bowel Sounds and No Hepatosplenomegaly
Musculoskeletal: No Clubbing, No Cyanosis and No Edema
Skin: Warm
Neuro: Awake and AO x 3
Psych: Calm and Intact Judgement/Insight
Data Reviewed
-
Labs: Labs Reviewed by me, Discussed with Physician and Discussed with Patient
Old Records: Reviewed
[2025-02-28 12:03] LABS: Glucose - Point of Care 92 mg/dl (70-99)
[2025-02-28] MEDS: VANCOCIN 200 IV (13:00)
--- NOTE | 2025-02-28 15:27 | ITS.CL.PACE ---
Electrical Fitter - Pacemaker Implant
Pacemaker Implant
Procedure Report:
PACEMAKER IMPLANT REPORT
Primary Care Provider: Dr. Adrian Lerma
Primary monument carver: Dr. Daniel Rojas
Date of Procedure: February 28, 2025
Procedure:
Implantation of dual-chamber permanent pacemaker utilizing the left bundle branch for conduction system pacing
Indication/Diagnosis:
Non-reversible symptomatic bradycardia due to sinus node dysfunction
She has had recurrent syncope. 1 of these episode occurred while in the emergency department and syncope was precipitated by sudden marked bradycardia with junctional escape rhythm at 35 bpm.
There may be a vasovagal etiology to her symptoms Dems with a strong cardioinhibitory component and permanent pacemaker implantation for sick sinus syndrome with the addition of rate drop hysteresis is likely to be of significant benefit in reducing
the likelihood of recurrent syncope, however may not eliminate all of her symptoms.
She does have a spinal cord stimulator that she tells me she has not been using it because it has not provided any significant relief. This spinal cord stimulator even if she uses it should not provide any concerning electromechanical interference
to the pacemaker function.
After informed consent was obtained, 'time out' was called and confirmed, the patient was prepped and draped in a sterile fashion. Lidocaine with epi was used for local anesthesia. Central venous access was obtained via subclavian venipuncture. An
incision was made along the left chest and a pre-pectoral pocket was formed. Using a Seldinger technique and peel-away sheaths, the pacing leads were placed under fluoroscopic guidance.
Fluoroscopy was used to determine likely anatomic site for left bundle branch pacing. The Ensocaretronic C315 sheath was used to deliver the Medtronic 3830 Selectsecure pacing lead with the helix exposed just exposed from the sheath tip during continuous
monitoring when pacemapping the septum during gentle clockwise rotation to obtain a paced QRS morphology of a W pattern in lead V1. Once the suspected optimal site was identified, lead deployment was performed with several rapid rotations as paced
QRS morphology was intermittently monitored until a paced QRS complex in lead V1 demonstrated development of an R wave R.
Unipolar pacing impedance dropped by approximately 100 ohms suggesting it had reached the left ventricular subendocardial.
Stable VEgm injury current is present throughout final lead position including at end of case, suggesting there was no perforation through the septum into the LV cavity.
Unipolar pacing impedance is 800 Ohms
Unipolar pacing threshold is stable at 1.25 V @ 0.4 ms.
Final conduction system paced QRS complex duration is 109 ms
LVAT is 69 ms and peak V5 -> peak V1 timing is 48 ms
There is QRS transition to LVSP / selective LBBP during threshold testing
Right atrial lead was placed at the RAA.
Once testing (see below) showed adequate and stable function, the leads were secured using the suture sleeves. The pocket was liberally irrigated with antibiotic solution. The leads were connected to the generator header and the leads and
generator were placed within the pocket. Fluoroscopy confirmed stable lead position. The pocket was closed in the typical fashion.
Fluoroscopy was used to guide lead placement.
IMPLANTS:
Medtronic [id number], SN: [id number], Left Pectoral
RA: Medtronic 5076-45, SN: [id number], RAA
Left Bundle: Medtronic 3830 , SN:[id number], Interventricular septum at LBB
DEVICE TESTING:
Sensing: RA 2.3 mV, RV 4.9 mV
Capture: RA 1.25 V@0.4ms, RV 1.25 V@0.4ms
Ohms: RA 494, RV 627 (bipolar)
FINAL PROGRAMMING
Martin Pacing: AAIR+ 50-130 ppm with rate drop hysteresis programmed on, rate drop window is 25 beats over 1 minute
COMPLICATIONS:
None
CONCLUSIONS:
1: Successful implant of dual chamber permanent pacemaker utilizing Left Bundle Branch conduction system capture for ventricular resynchronization pacing.
RECOMMENDATIONS:
1. Post-op care (tele, CXR, IV abx)
2. In-Office wound check in 5-7 days
Copy to:
Primary Care Provider: Dr. Adrian Lerma
Primary monument carver: Dr. Daniel Rojas
[2025-02-28 15:53] VITALS: BP 146/70
[2025-02-28 16:53] LABS: Glucose - Point of Care 91 mg/dl (70-99)
[2025-02-28] MEDS: CRESTOR 40 MG PO (17:56)
[2025-02-28 19:11] VITALS: BP 128/63
[2025-02-28 21:11] LABS: Glucose - Point of Care 161 mg/dl (70-99)
[2025-02-28 23:38] VITALS: BP 135/75
[2025-03-01] VITALS (7 sets, daily range): BP systolic 121–162; BP diastolic 56–100; BMI 33.5
[2025-03-01] MEDS: FIORICET 1 TAB PO ×2 (03:59→14:30)
--- NOTE | 2025-03-01 07:54 | W.PN.HOSP.TC ---
Today's Communication/Plan
-
Cardiology to see patient today
Assessment / Plan
Assessment / Plan
ASSESSMENT:
A 74-year-old woman with a past medical history of atrial fibrillation, hypertension, type 2 diabetes mellitus, hyperlipidemia, polymyalgia rheumatica, GERD presenting with recurrent syncopal episodes. Prior history significant for torsades de
pointes with prolonged QT (700+ ms) 2 months ago. Current episode likely due to dehydration with improvement after IV fluids.
PLAN:
# Syncope
# Pacemaker placement
# Chest pain, post pacemaker placement
Prior history of torsades de pointes
Echo 12/24/24: Ejection fraction 60%, mild mitral regurgitation, trace tricuspid regurgitation
Current EKG with normal sinus rhythm. Continue on telemetry.
Maintain adequate hydration. Continue IV fluids as needed.
Trend BMP
Cardiology consulted: Syncope most likely vasovagal in origin, no arrhythmia, QT normal
Permanent pacemaker implantation 02/28/2025. Patient having intermittent chest pain which may be due to lead irritation/post procedure. Cardiology yet to provide recommendations today.
#Hyponatremia -improved
Likely hypovolemic in the setting of dehydration
Na improving from 131 --> 134 with IV fluids. Na 138 on 02/27/2025. Na 36 02/28/2025.
Trend BMP
#Elevated BUN/CR ratio -improved
Likely prerenal from dehydration
02/25/2025 BUN/Cr 25 --> 16 on 02/27/2025 --> 11 on 02/28/25
# Elevated liver function tests -improving
Possibly related to recent Mounjaro use
AST/ALT improved 143/83 --> 25/35 (normal now 03/01/25)
Trend CMP.
# History of atrial fibrillation
# History of torsades de pointes
Avoid QT prolonging medications
Continue home cardiac medications as appropriate
Maintain K/ Mg at appropriate levels
# History of myocardial infarction/cardiovascular disease
# Essential hypertension
Continue home aspirin, statin
BP at home 120s/70s usually
CODE STATUS: Full code
DVT prophylaxis: Xarelto
Anticipated Discharge: Within 24 hours
Subjective/Interval History
-
Date of Service: March 01, 2025
Patient evaluated at bedside this morning. She states she feels well, but is having intermittent 20 second episodes of chest pain post procedure. Otherwise no other complaints.
Objective Data
-
Labs:
Laboratory Results
03/01/25
06:00
WBC Pending
Hgb Pending
Hct Pending
Plt Count Pending
Sodium Pending
Potassium Pending
Chloride Pending
Carbon Dioxide Pending
BUN Pending
Creatinine Pending
Glucose Pending
Calcium Pending
Total Bilirubin Pending
AST Pending
ALT Pending
Alkaline Phosphatase Pending
Vital Signs:
Vital Signs
Temp Pulse Resp BP Pulse Ox
97.6 F 102 16 134/68 97
03/01/25 03:26 03/01/25 03:26 03/01/25 03:26 03/01/25 03:27 03/01/25 03:26
I&O
02/28/25 03/01/25 03/02/25
06:59 06:59 06:59
Intake Total 2620 / 2620 240 / 240
Balance 2620 / 2620 240 / 240
Review of Systems
-
History Source: Patient
All other systems: Reviewed and negative
Constitutional: Reports No Symptoms
EENT: Reports No Symptoms Reported
Respiratory: Reports No Symptoms
Cardiac: Reports Chest Pain
Abdomen/GI: Reports No Symptoms
Breast: Reports No Symptoms
Genitourinary: Reports No Symptoms
Musculoskeletal: Reports No Symptoms
Skin: Reports No Symptoms
Neuro: Reports No Symptoms
Endocrine: Reports No Symptoms
Hematologic / Lymphatic: Reports No Symptoms
Physical Exam
-
General: Well Developed, Well Nourished, No Apparent Distress, Comfortable and Conversant
HEENT: Normocephalic, Atraumatic, Moist Mucous Membranes and Anicteric
Respiratory: Clear to Auscultation
Cardiac: Regular Rhythm and S1/S2
GI: Soft, Nontender, Nondistended and Normal Bowel Sounds
Musculoskeletal: No Clubbing, No Cyanosis and No Edema
Skin: Warm
Neuro: Awake and AO x 3
Psych: Calm and Intact Judgement/Insight
Data Reviewed
-
Labs: Labs Reviewed by me, Discussed with Physician and Discussed with Patient
[2025-03-01 08:09] LABS: Glucose - Point of Care 76 mg/dl (70-99)
[2025-03-01] MEDS: FLOVENT 44 MCG INHALER 1 PUFF INH (08:16)
[2025-03-01 09:10] LABS: Hematocrit 40.9 % (37.0-47.0); Hemoglobin 13.6 g/dL (12.0-16.0); Mean Corp Hgb Conc. 33.3 g/dL (33.0-37.0); Mean Corpuscular Volume 89.1 fL (81.0-99.0); Nucleated Red Blood Cells % 0 %; Platelet Count 202 10^3/uL (130-400); Red Cell Dist. Width 12.5 % (11.5-14.5)
[2025-03-01] MEDS: HIPREX 1 GRAM PO ×2 (09:11→19:40)
[2025-03-01] MEDS: ALDACTONE 25 MG PO (09:11)
[2025-03-01] MEDS: CYMBALTA DELAYED RELEASE 30 MG PO (09:12)
[2025-03-01] MEDS: MAGNESIUM OXIDE 400 MG PO (09:12)
[2025-03-01] MEDS: KCL 10 MEQ PO (09:12)
[2025-03-01] MEDS: GLUCOPHAGE 500 MG PO (09:12)
[2025-03-01] MEDS: NON-FORMULARY ITEM 1 PUMP TOPICAL ×3 (09:13→21:18)
[2025-03-01 11:12] LABS: ALT (SGPT) 35 U/L (0-35); AST (SGOT) 25 U/L (14-36); Albumin 3.6 g/dl (3.5-5.0); Alkaline Phosphatase 185 U/L (38-126); Blood Urea Nitrogen 16 mg/dl (7-17); Calcium 8.8 mg/dl (8.4-10.2); Carbon Dioxide 24 mmol/L (22-30); Chloride 104 mmol/L (98-107); Estimated Creatinine Clearance 54 ml/min; Glucose 102 mg/dl (70-99); Magnesium 2.1 mg/dl (1.6-2.3); Potassium 4.0 mmol/L (3.5-5.1); Sodium 137 mmol/L (135-145); Total Protein 6.3 g/dl (6.3-8.2); eGFR > 60.00
[2025-03-01 12:02] LABS: Glucose - Point of Care 76 mg/dl (70-99)
--- NOTE | 2025-03-01 14:23 | W.PN.CARDCBS ---
Today's Communication / Plan
-
Resume Pradaxa evening of March 02, 2025
I have no objection to discharge from a pacemaker standpoint
Stable from a pacemaker standpoint
Outpatient wound check in 7 to 10 days at our office
Impression / Plan
-
Primary Value Analyst: Dr. White
Assessment:
Presentation with syncopal episode, with additional syncopal episode in ER with associated transient junctional rhythm
Leukocytosis
UNA
Elevated LFTs
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
PAF status post pulsed field ablation 04/2024
Subclinical CAD/coronary artery calcification
Aortic and cerebrovascular atherosclerosis
GERD
Hypertension
Hypercholesterolemia
Type 2 diabetes with polyneuropathy
Depression
Sleep apnea with history of UVP
Pulmonary embolus DVT
Asthma
Morbid obesity
Migraines
Spinal stenosis
40 pounds weight loss with tirzepatide
ECHO 12/24/2024: EF 60%, mild MR, trace TR
Plan:
- She is now status post pacemaker implantation
- She has some atypical chest pain symptoms which were worse 2 days ago, better yesterday, and minimal this morning and currently pain-free.
- Chest x-ray is reviewed and hemodynamically stable. She has a 3830-lead in the septal position and lead the right atrial position which is performing well on telemetry. Appropriate atrial sensing and pacing on telemetry and ventricular sensing.
There is no change in hemodynamic values. I do not think her chest symptoms are related to the device implantation.
- Can resume her oral anticoagulation tomorrow evening March 02, 2025.
- She should have an outpatient wound check in 7 to 10 days
- She was asking about physical therapy for her left knee trauma related to fall and I will defer to internal medicine and the patient whether physical therapy evaluation is necessary
Progress Note - Value Analyst
Subjective
Date of Service: March 01, 2025
Feels well
Objective
Labs:
03/01/25 08:44
03/01/25 10:05
Labs
Hgb 13.6 g/dL (12.0-16.0) 03/01/25 08:44
Hct 40.9 % (37.0-47.0) 03/01/25 08:44
Plt Count 202 10^3/uL (130-400) 03/01/25 08:44
Sodium 137 mmol/L (135-145) 03/01/25 10:05
Potassium 4.0 mmol/L (3.5-5.1) 03/01/25 10:05
BUN 16 mg/dl (7-17) 03/01/25 10:05
Creatinine 0.9 mg/dL (0.6-1.0) 03/01/25 10:05
Glucose 102 mg/dl (70-99) H 03/01/25 10:05
Vital Signs and I&O:
Vital Signs
Temp Pulse Resp BP Pulse Ox
97.8 F 65 18 127/66 97
03/01/25 11:46 03/01/25 11:46 03/01/25 11:46 03/01/25 11:46 03/01/25 11:46
Vital Signs
Temp Pulse Resp BP Pulse Ox
97.8 F 65 18 127/66 97
03/01/25 11:46 03/01/25 11:46 03/01/25 11:46 03/01/25 11:46 03/01/25 11:46
Intake & Output
02/27/25 02/28/25 03/01/25 03/02/25
05:59 06:59 06:59 06:59
Intake Total 1380 / 1380 2620 / 2620 240 / 240
Balance 1380 / 1380 2620 / 2620 240 / 240
Physical Exam
Physical Exam
����Physical Exam
���������������������General:��no apparent distress, not acutely ill
���������������������������Neck:��supple. no meningeal signs. normal psoterior pharynx
������������������������
���������������������������Heart:��s1/s2 regular rate and rhythm, no murmur. equal radial pulses.
Left deltopectoral groove incision clean dry and intact
��������������������������Lungs: ��no acute respiratory distress. clear bilaterally
����������������������Abdomen:�normal bowel sounds. not tender. no CVAT
��������������������������Neuro:��alert and oriented. no focal neurological deficits
������������������������������Skin: ��no rash
�����������������������Psychiatric:�well kept. interactive and cooperative
�����������������������Extremities:��no edema. no calf tenderness. negative homans. good distal pulses
��
�
--- NOTE | 2025-03-01 15:54 | CM ---
Chart reviewed. Care ongoing.
Permanent pacemaker placed yesterday
No CM needs at this time
Plan: Home, no needs
[2025-03-01 17:45] LABS: Glucose - Point of Care 98 mg/dl (70-99)
[2025-03-01] MEDS: CRESTOR 40 MG PO (18:06)
[2025-03-01 21:24] LABS: Glucose - Point of Care 137 mg/dl (70-99)
[2025-03-02 03:00] VITALS: BP 154/89
[2025-03-02] MEDS: FIORICET 1 TAB PO (03:32)
[2025-03-02 06:00] VITALS: BMI 33.5
[2025-03-02 07:00] VITALS: BP 133/70
[2025-03-02 07:23] LABS: Glucose - Point of Care 80 mg/dl (70-99)
[2025-03-02] MEDS: FLOVENT 44 MCG INHALER 1 PUFF INH (07:49)
[2025-03-02] MEDS: MAGNESIUM OXIDE 400 MG PO (08:08)
[2025-03-02] MEDS: GLUCOPHAGE 500 MG PO (08:08)
[2025-03-02] MEDS: KCL 10 MEQ PO (08:08)
[2025-03-02] MEDS: CYMBALTA DELAYED RELEASE 30 MG PO (08:08)
[2025-03-02] MEDS: ALDACTONE 25 MG PO (08:09)
[2025-03-02] MEDS: HIPREX 1 GRAM PO (08:09)
[2025-03-02] MEDS: NON-FORMULARY ITEM 1 PUMP TOPICAL ×2 (08:12→16:14)
[2025-03-02 08:37] LABS: Hematocrit 37.6 % (37.0-47.0); Hemoglobin 12.5 g/dL (12.0-16.0); Mean Corp Hgb Conc. 33.2 g/dL (33.0-37.0); Mean Corpuscular Volume 88.9 fL (81.0-99.0); Platelet Count 199 10^3/uL (130-400); Red Cell Dist. Width 12.7 % (11.5-14.5)
[2025-03-02 09:00] LABS: Nucleated Red Blood Cells % 0 %
[2025-03-02 09:11] LABS: ALT (SGPT) 29 U/L (0-35); AST (SGOT) 24 U/L (14-36); Albumin 3.6 g/dl (3.5-5.0); Alkaline Phosphatase 186 U/L (38-126); Blood Urea Nitrogen 17 mg/dl (7-17); Calcium 9.1 mg/dl (8.4-10.2); Carbon Dioxide 26 mmol/L (22-30); Chloride 103 mmol/L (98-107); Estimated Creatinine Clearance 49 ml/min; Glucose 153 mg/dl (70-99); Magnesium 1.9 mg/dl (1.6-2.3); Potassium 3.8 mmol/L (3.5-5.1); Sodium 137 mmol/L (135-145); Total Protein 6.4 g/dl (6.3-8.2); eGFR 59.86
--- NOTE | 2025-03-02 10:24 | CM ---
CM reviewed chart, patient seen bedside, for d.c today.
[facility], TT to [facility] with referral.
Patient confirms transportation home form .
IMM verbally reviewed, provided with copy, placed in chart.
Plan; home with VN
--- NOTE | 2025-03-02 10:33 | W.PN.HOSP.TC ---
Today's Communication/Plan
-
Medically stable for discharge today.
Assessment / Plan
Assessment / Plan
ASSESSMENT:
A 74-year-old woman with a past medical history of atrial fibrillation, hypertension, type 2 diabetes mellitus, hyperlipidemia, polymyalgia rheumatica, GERD presenting with recurrent syncopal episodes. Prior history significant for torsades de
pointes with prolonged QT (700+ ms) 2 months ago. Current episode likely due to dehydration with improvement after IV fluids.
PLAN:
# Syncope
# Pacemaker placement
# Chest pain, post pacemaker placement
Prior history of torsades de pointes
Echo 12/24/24: Ejection fraction 60%, mild mitral regurgitation, trace tricuspid regurgitation
Current EKG with normal sinus rhythm. Continue on telemetry.
Maintain adequate hydration. Continue IV fluids as needed.
Trend BMP
Cardiology consulted: Syncope most likely vasovagal in origin, no arrhythmia, QT normal
Permanent pacemaker implantation 02/28/2025.
Patient had intermittent chest pain which may be due to lead irritation/post procedure. Resolved 03/02/2025.
Patient to resume Xarelto today 03/02/2025 evening.
#Hyponatremia -improved
Likely hypovolemic in the setting of dehydration
Na improving from 131 --> 137 with IV fluids.
Trended BMP
#Elevated BUN/CR ratio -improved
Likely prerenal from dehydration
02/25/2025 BUN/Cr 25 --> 16 on 02/27/2025 --> 11 on 02/28/25
# Elevated liver function tests - resolved
Possibly related to recent Mounjaro use
AST/ALT improved 143/83 --> 25/35 (normal now 03/01/25)
Trend CMP.
# History of atrial fibrillation
# History of torsades de pointes
Avoid QT prolonging medications
Continue home cardiac medications as appropriate
Maintain K/ Mg at appropriate levels
# History of myocardial infarction/cardiovascular disease
# Essential hypertension
Continue home aspirin, statin
BP at home 120s/70s usually
CODE STATUS: Full code
DVT prophylaxis: Xarelto
Anticipated Discharge: Today
Subjective/Interval History
-
Date of Service: March 02, 2025
Patient evaluated at bedside this morning. She states she feels well. She did not have an episode of chest pain overnight. Patient states she wants help at home with the visiting nurse because her recently hurt his back.
Objective Data
-
Labs:
Laboratory Results
03/02/25
08:13
WBC 12.2 H
Hgb 12.5
Hct 37.6
Plt Count 199
Sodium 137
Potassium 3.8
Chloride 103
Carbon Dioxide 26
BUN 17
Creatinine 1.0
Glucose 153 H
Calcium 9.1
Total Bilirubin 0.5
AST 24
ALT 29
Alkaline Phosphatase 186 H
Vital Signs:
Vital Signs
Temp Pulse Resp BP Pulse Ox
98.0 F 71 16 133/70 98
03/02/25 07:00 03/02/25 08:09 03/02/25 07:54 03/02/25 08:09 03/02/25 07:54
I&O
03/01/25 03/02/25 03/03/25
06:59 06:59 06:59
Intake Total 240 / 240 480 / 480
Balance 240 / 240 480 / 480
Review of Systems
-
History Source: Patient
Constitutional: Reports No Symptoms
EENT: Reports No Symptoms Reported
Respiratory: Reports No Symptoms
Cardiac: Reports No Symptoms
Abdomen/GI: Reports No Symptoms
Breast: Reports No Symptoms
Genitourinary: Reports No Symptoms
Musculoskeletal: Reports No Symptoms
Skin: Reports No Symptoms
Neuro: Reports No Symptoms
Endocrine: Reports No Symptoms
Hematologic / Lymphatic: Reports No Symptoms
Physical Exam
-
General: Well Developed, Well Nourished, No Apparent Distress, Comfortable and Conversant
HEENT: Normocephalic, Atraumatic, Moist Mucous Membranes and Anicteric
Respiratory: Clear to Auscultation
Cardiac: Regular Rhythm and S1/S2
Breast: Deferred by me
GI: Soft, Nontender, Nondistended and Normal Bowel Sounds
Musculoskeletal: No Clubbing, No Cyanosis, No Edema and Other (Protective packing in place over left side of chest)
Skin: Warm
Neuro: Awake and AO x 3
Psych: Calm
Data Reviewed
-
Labs: Labs Reviewed by me, Discussed with Physician and Discussed with Patient
Old Records: Reviewed
--- NOTE | 2025-03-02 10:55 | VNURNOTE ---
Home Health Liaison met with patient at bedside to discuss [facility] nurse/therapy, visits, schedule and homebound status. Patient is agreeable and understands that visits at home will be 2-3 x per week to assess and teach medical management.
Patient is aware that [facility] will contact them for start of care within a week after discharge from . Provided contact number for [facility].
[facility] referral completed in [facility].
[2025-03-02 11:00] VITALS: BP 121/71
[2025-03-02 12:08] LABS: Glucose - Point of Care 90 mg/dl (70-99)
[2025-03-02 13:55] VITALS: BP 120/74; BP 148/81; PULSE 79; O2SAT 94
[2025-03-02 15:00] VITALS: BP 125/74
--- NOTE | 2025-03-02 16:34 | W.DCSUMMARY ---
Discharge Summary
Discharge Data
Date of Admission: 02/25/25
Date of Discharge: 03/02/25
-
Pending Results: No
Hospital Course
Discharging Physician : Dr. Zbigniew Romero and Dr. Suleman Quintanilla
Disposition : With visiting nurse
Primary care physician : Dr. Cecil Lerma Jr.
Principal Discharge diagnosis : Syncope, permanent pacemaker placement, hyponatremia, elevated BUN/creat ratio, elevated LFT
Chronic Discharge diagnosis : History of atrial fibrillation, history of torsades de pointes, DC, essential hypertension
Hospital Course : A 74-year-old female with a past medical history of atrial fibrillation, hypertension, type 2 diabetes mellitus, hyperlipidemia, polymyalgia rheumatica and GERD who presented to the ED with recurrent syncopal episodes. She has a
prior history of torsades de pointes with QT prolongation 700+ ms. current episode was suspected to be vasovagal in the setting of dehydration. Workup revealed hyponatremia (Na 131) and elevated BUN/creat ratio, both of which improved with IV
fluids. Echocardiogram on 12/24/2024 showed LVEF 60%, mild mitral regurgitation and trace tricuspid regurgitation. Cardiology was consulted and recommended permanent pacemaker placement which was performed on 02/28/2025. Postprocedure course was
notable for intermittent chest pains that resolved by 03/02/2025 and was attributed to local inflammation/lead irritation. Her atenolol 12.5 mg twice daily and Xarelto were resumed on 03/02/2025 evening. Liver function test were transiently elevated
(AST/ALT 143/83), initially thought to be related to recent Mounjaro use but improved to prior to discharge. The patient remained hemodynamically stable with resolution of symptoms and normalization of labs. She was discharged home on
03/02/2025 with continuation of her home cardiac medications, Xarelto and visiting nurse follow-up. Patient advised to not remove the Aquacel dressing over the chest until cardiology does so, and to follow-up with them within 7 to 10 days. Patient
has also been given a prescription for physical therapy for her left knee pain (x-ray knee did not show any acute findings during hospitalization).
Important imaging findings :
CXR 02/28/2025: 1. No radiographic evidence for pneumothorax following left-sided cardiac pacemaker placement.
2. Mild cardiomegaly.
3. Mild scarring in the right middle lobe and lingula.
XR knee R 03/01/2025: Left total knee arthroplasty in place without radiographic evidence for acute periprosthetic fracture.
Echo 02/28/2025:
1. Normal left ventricular size and function, ejection fraction 55-60%.
2. Thickened mitral leaflets, mitral annular calcification, trace mitral regurgitation and normal left atrium.
3. Aortic sclerosis without stenosis or regurgitation.
4. Normal right heart, pulmonary artery systolic pressure is 34 mmHg.
5. In November 2024, the ejection fraction was 60%. There was mild mitral regurgitation.
Discharge Plan
-
Patient Disposition: Home with Home Care
Discharge Diagnosis/Procedures: Pacemaker implant
Syncope
Chest pain, post pacemaker placement
Hyponatremia
Elevated BUN/CR ratio
Elevated liver function tests
Condition: Good
Diet: Low Sodium
Activity: As tolerated
Driving Restrictions: No driving for 1 week
Blood Work: CBC, CMP in 1 week with PCP
Activity Restrictions/Additional Instructions:
Have a discussion with your primary care provider about mitigating fall risks in the home.
Stand Alone Forms: [facility] - Implanted Device
Referrals:
[facility] [Provider Group] - 03/07/25 11:00 am
Referral Note: Post device incision check appointment
Cecil Lerma Jr., DO [Family Provider, Internal Medicine] - in less than 1 week
Additional Discharge Medication Instructions: You can resume the atenolol today, and take your Xarelto 03/02/25 (today) evening.
Prescriptions:
Continued
metformin 500 MG tablet
500 mg PO DAILY
Xarelto 20 MG tablet
20 mg PO QPM Qty: 0 0RF
rosuvastatin 40 mg Tablet
40 mg PO QPM
ergocalciferol (vitamin D2) [Vitamin D2] 1,250 mcg (50,000 unit) Capsule
1,250 mcg PO SA
methenamine hippurate 1 gram Tablet
1 g PO BID
furosemide 40 mg Tablet
40 mg PO DAILYPRN PRN (Reason: Edema)
dlhheijlda-yggusmwkjircw-tefp 50-300-40 mg capsule
1 cap PO Q6HPRN PRN (Reason: migraine)
Folbic RF 2-1.13-25 mg tablet
1 tab PO DAILY
spironolactone 25 MG tablet
25 mg PO DAILY
Prolia 60 mg/mL Syringe
60 mg SC [id number]
duloxetine 30 mg Capsule,Delayed Release(Dr/Ec)
30 mg PO DAILY
fluticasone furoate [Arnuity Ellipta] 50 mcg/actuation Blister With Device
50 mcg INHALATION R DAILY
potassium chloride 10 mEq capsule, extended release
10 meq PO DAILY
magnesium oxide 400 mg (241.3 mg magnesium) tablet
400 mg PO DAILY
atenolol 25 mg Tablet
12.5 mg PO BID
Discharge Orders:
Discharge Patient (As Directed); Ordered 03/02/25
Ordered By: Suleman Quintanilla
Discharge Date and Time
Print Language: LITHUANIAN
== END 2025-03-02 17:06 | disposition home health service (06) | DRG 243 ==
LOC: 4 WEST ACU 22:11
PROVIDERS: ADMITTING PHYSICIAN Internal Medicine; ATTENDING PHYSICIAN Internal Medicine; CONSULT PHYSICIAN Internal Medicine Cardiovascular Disease; EMERGENCY PHYSICIAN Emergency Medicine; FAMILY PHYSICIAN Family Medicine
PROC: 0JH606Z Insertion of Pacemaker, Dual Chamber into Chest Subcutaneous Tissue and Fascia, Open Approach (ICD-10-PCS; 2025-02-28)
PROC: 02HK3JZ Insertion of Pacemaker Lead into Right Ventricle, Percutaneous Approach (ICD-10-PCS; 2025-02-28)
PROC: 02H63JZ Insertion of Pacemaker Lead into Right Atrium, Percutaneous Approach (ICD-10-PCS; 2025-02-28)
DX: I47.21 Torsades de pointes (principal); E87.1 Hypo-osmolality and hyponatremia; N17.9 Acute kidney failure, unspecified; I49.5 Sick sinus syndrome; I47.29 Other ventricular tachycardia; M79.7 Fibromyalgia; K21.9 Gastro-esophageal reflux disease without esophagitis; G43.909 Migraine, unspecified, not intractable, without status migrainosus; F41.0 Panic disorder [episodic paroxysmal anxiety]; I48.0 Paroxysmal atrial fibrillation; I10 Essential (primary) hypertension; M35.3 Polymyalgia rheumatica; J45.909 Unspecified asthma, uncomplicated; E87.6 Hypokalemia; E78.00 Pure hypercholesterolemia, unspecified; E11.42 Type 2 diabetes mellitus with diabetic polyneuropathy; F32.A Depression, unspecified; E66.01 Morbid (severe) obesity due to excess calories; G47.30 Sleep apnea, unspecified; M48.00 Spinal stenosis, site unspecified; R74.01 Elevation of levels of liver transaminase levels; R79.89 Other specified abnormal findings of blood chemistry; I25.10 Atherosclerotic heart disease of native coronary artery without angina pectoris; E86.0 Dehydration; I45.81 Long QT syndrome; Z79.899 Other long term (current) drug therapy; Z79.01 Long term (current) use of anticoagulants; Z86.711 Personal history of pulmonary embolism
CPT/HCPCS: 33208; 70450; 71045; 73560; 80053; 80061; 82550; 82962; 83036; 83735; 84484; 85025; 85027; 93005; 93308; 93321; 93325; 94640; 94760; 97163; 99285; C1769; C1785; C1887; C1898

== ENCOUNTER 2025-03-04 04:07 | Emergency (ER) | payer MEDICARE, OTHER, SELFPAY ==
[2025-03-04] VITALS (9 sets, daily range): BP systolic 115–159; BP diastolic 62–94; BMI 33.6
--- NOTE | 2025-03-04 04:25 | ED.GENMED ---
History of Present Illness
<JHONY Potter Jr. Filed: 03/04/25 06:04>
General
Chief Complaint: Chest Pain
Source: patient
Exam Limitations: none
Time Seen by Provider: 03/04/25 04:18
Nursing documentation reviewed up to this point in time: agreed with
History of Present Illness
History of Present Illness:
74-year-old female presenting to the emergency department today with concerns of intermittent but worsening chest tightness. Recently was admitted to the hospital after syncopal episodes that were deemed to be polymorphic V. tach status post
pacemaker 5 days ago. Denies any surgical site irritation or pain does have a central chest pressure. She was having similar symptoms prior to discharge as well but seems to be worsening. Denies associated shortness of breath or palpitations.
Past History
<JHONY Potter Jr. Filed: 03/04/25 06:04>
Past History
ED Past Medical History: Arrthythmia (Paroxysmal Atrial fibrillation), Asthma, Fibromyalgia, GERD, HTN, Hypercholesterolemia, NIDDM, Psychiatric (Panic attacks) and Other (Migraine headaches, polymyalgia rheumatica; allergic rhinitis, Neuropathy ,
PNA, PE/DVT, Sleep apnea, Pleural effusion, Hiatal hernia, UTi, Iron Def anemia, )
ED Past Surgical History: Cardiac (Cardiac catheterization May 2013 showing mild luminal irregularities.), (X 2), Gynecological (D&E, Hysterectomy), Orthopedic (Carpal tunnel release right hand. Neurostimulator in spine, Left wrist
surgery, Left knee surgery, Fusion L4-L5, ), Tonsilectomy and Other (Implanted stimulator, Cataracts, Uvulectomy)
Social History
Tobacco: Non-smoker
Alcohol: None
Drug: Other (THC lotion)
Personal:
Living: with family
Employment: Retired
Family History
Family History: Hypertension and Cancer (Breast cancer)
Review of Systems
<JHONY Potter Jr. Filed: 03/04/25 06:04>
Review of Systems
Allergies reviewed?: Yes
All Other Systems: ROS reviewed and negative except as documented in HPI and ROS
Phy Exam
<Tomas Muñoz Jr., PA-C - Last Filed: 03/04/25 06:04>
Physical Exam
Physical Exam:
GENERAL: Alert , in no apparent distress
EYE: pupils equal and reactive
NECK: Supple, no significant adenopathy.
ENT: o/p clr, mmm.
CARDIAC: Bandages to the left chest wall clean dry and intact regular rate and rhythm .
LUNGS: Clear breath sounds bilaterally, no acute respiratory distress, no wheezes/rales/rhonchi
ABDOMEN: Soft, without focal tenderness, no r/g, no cvat
NEUROLOGICAL: Alert and oriented, no focal neuro deficits
SKIN: Warm and dry, skin intact.
MUSCULOSKELETAL: No edema, well perfused.
PSYCH: Normal and appropriate interaction.
Scores
<Zbigniew River PA-C - Last Filed: 03/04/25 13:15>
Heart Score for Chest Pain Patients
STEMI patient?: Not applicable
Course
<Tomas Muñoz Jr., PA-C - Last Filed: 03/04/25 06:04>
Orders/Labs/Results
Orders:
Orders
03/04/25
Electrocardiogram (*1) Stat
Reason for Study: Chest Pain
Comment: DONE
03/04/25 04:16
ECG [Electrocardiogram (*1)] Urgent
Reason for Study: Palpitations
EKG- Treatment ONCE
03/04/25 04:27
Cardiac Monitoring- Treatment ONCE
Interrogate Pacemaker- Treatment ONCE
CR Chest - 2 Views Urgent
Comment:
Reason For Exam: cp
03/04/25 04:36
Complete Blood Count/With Diff Urgent
Comprehensive Metabolic Panel Urgent
Magnesium Urgent
TSH Urgent
03/04/25 05:42
Troponin I Urgent
03/04/25 08:26
Troponin I Urgent
03/04/25 08:59
Echo Follow-up Study Urgent
Reason for Study: CP, tachycardia, recent PPM, r/o effusion
Abnormal Lab Results
03/04/25
04:36
WBC 11.0 H 10^3/uL
(4.8-10.8)
Absolute Neuts (auto) 6.7 H 10^3/uL
(1.4-6.5)
Absolute Monos (auto) 0.8 H 10^3/uL
(0.1-0.6)
Sodium 134 L mmol/L
(135-145)
BUN 18 H mg/dl
(7-17)
Alkaline Phosphatase 206 H U/L
(38-126)
TSH 5.47 H uIU/ml
(0.47-4.68)
03/04/25 04:36
03/04/25 04:36
Vital Signs
Initial and Last Documented VS:
Initial Vital Signs
Temp Pulse BP
97.9 F 67 159/81
03/04/25 04:10 03/04/25 04:10 03/04/25 04:10
Last Documented Vital Signs
Temp Pulse Resp BP Pulse Ox
97.9 F 70 13 127/75 99
03/04/25 04:10 03/04/25 11:15 03/04/25 11:15 03/04/25 11:00 03/04/25 11:15
<Zbigniew River PA-C - Last Filed: 03/04/25 13:15>
Orders/Labs/Results
Orders:
Orders
03/04/25
Electrocardiogram (*1) Stat
Reason for Study: Chest Pain
Comment: DONE
03/04/25 04:16
ECG [Electrocardiogram (*1)] Urgent
Reason for Study: Palpitations
EKG- Treatment ONCE
03/04/25 04:27
Cardiac Monitoring- Treatment ONCE
Interrogate Pacemaker- Treatment ONCE
CR Chest - 2 Views Urgent
Comment:
Reason For Exam: cp
03/04/25 04:36
Complete Blood Count/With Diff Urgent
Comprehensive Metabolic Panel Urgent
Magnesium Urgent
TSH Urgent
03/04/25 05:42
Troponin I Urgent
03/04/25 08:26
Troponin I Urgent
03/04/25 08:59
Echo Follow-up Study Urgent
Reason for Study: CP, tachycardia, recent PPM, r/o effusion
Abnormal Lab Results
03/04/25
04:36
WBC 11.0 H 10^3/uL
(4.8-10.8)
Absolute Neuts (auto) 6.7 H 10^3/uL
(1.4-6.5)
Absolute Monos (auto) 0.8 H 10^3/uL
(0.1-0.6)
Sodium 134 L mmol/L
(135-145)
BUN 18 H mg/dl
(7-17)
Alkaline Phosphatase 206 H U/L
(38-126)
TSH 5.47 H uIU/ml
(0.47-4.68)
03/04/25 04:36
03/04/25 04:36
Vital Signs
Initial and Last Documented VS:
Initial Vital Signs
Temp Pulse BP
97.9 F 67 159/81
03/04/25 04:10 03/04/25 04:10 03/04/25 04:10
Last Documented Vital Signs
Temp Pulse Resp BP Pulse Ox
97.9 F 70 13 127/75 99
03/04/25 04:10 03/04/25 11:15 03/04/25 11:15 03/04/25 11:00 03/04/25 11:15
<Tomas Muñoz Jr., PA-C - Last Filed: 03/04/25 06:04>
MDM/Problems Addressed
MDM/Problems Addressed:
74-year-old female presenting to the emergency department today with concerns of chest pressure to the central chest. Recently had pacemaker placed 5 days ago due to polymorphic V. tach that deemed to be causing syncopal episodes. On arrival here
vital signs are normal initial EKG is sinus bradycardia without signs of ischemia or arrhythmia. Patient's interrogation without any events. The symptoms while in the ER. Case discussed with cardiology recommending getting a troponin level and
trending and they will see the patient in the ER.
<Zbigniew River PA-C - Last Filed: 03/04/25 13:15>
*Pulse Oximetry
Patient hypoxic: no
*Critical Care Note
Total Time (30-74mins, 75-104mins- exclusive of procedures): Not Applicable
<Zbigniew River PA-C - Last Filed: 03/04/25 13:15>
Update Note
Update Note:
0600: Assumed care of pt from Wayne Muñoz PA-C at shift change. 74 yo female presenting with chest pressure after PPM placement 4d ago. Plan to obtain serial troponins, await cardiology bedside consultation.
0730: Cardiology at bedside
0913: Reviewed case w/ Dr White, will obtain echo to r/o effusion, if repeat trop is stable, plan to d/c
ED Attending Note
<Tomas Muñoz Jr., PA-C - Last Filed: 03/04/25 06:04>
-
Portions of this chart may have been created with voice recognition software.� Occasional wrong word or��sound alike� substitutions may have occurred due to the inherent limitations of voice recognition software.
Discharge Plan
Departure
Patient Disposition: Home (Routine Discharge)
Date of Disposition: 03/04/25
Time of Disposition: 11:12
Patient with high blood pressure during this ER visit?: No
Discharge Problem:
Chest pain
Prescriptions:
No Action
metformin 500 MG tablet
500 mg PO DAILY
Xarelto 20 MG tablet
20 mg PO QPM Qty: 0 0RF
rosuvastatin 40 mg Tablet
40 mg PO QPM
ergocalciferol (vitamin D2) [Vitamin D2] 1,250 mcg (50,000 unit) Capsule
1,250 mcg PO SA
methenamine hippurate 1 gram Tablet
1 g PO BID
furosemide 40 mg Tablet
40 mg PO DAILYPRN PRN (Reason: Edema)
hvxwpcnvwl-ttunuezlzpird-bghu 50-300-40 mg capsule
1 cap PO Q6HPRN PRN (Reason: migraine)
Folbic RF 2-1.13-25 mg tablet
1 tab PO DAILY
spironolactone 25 MG tablet
25 mg PO DAILY
Prolia 60 mg/mL Syringe
60 mg SC [id number]
duloxetine 30 mg Capsule,Delayed Release(Dr/Ec)
30 mg PO DAILY
fluticasone furoate [Arnuity Ellipta] 50 mcg/actuation Blister With Device
50 mcg INHALATION R DAILY
potassium chloride 10 mEq capsule, extended release
10 meq PO DAILY
magnesium oxide 400 mg (241.3 mg magnesium) tablet
400 mg PO DAILY
atenolol 25 mg Tablet
12.5 mg PO BID
Referrals:
Cecil Lerma Jr., DO [Family Provider, Internal Medicine]
Activity Restrictions/Additional Instructions:
Your pain should be improved/resolved after changing pacemaker settings.
Please follow up with your electronic bench technician if symptoms persist
Interventions
Interventions:
*Risk Screen - Suicide Last Done: 03/04/25 04:10
*General Assessment Last Done: 03/04/25 04:10
*Neglect/Abuse Screening Last Done: 03/04/25 04:10
*ED- Fall Risk Assessment Last Done: 03/04/25 04:26
*ED COVID-19 Vaccine History Last Done: 03/04/25 04:10
*ED Influenza Vaccine History Last Done: 03/04/25 04:10
*Nursing Disposition Last Done: 03/04/25 11:33
ED- Cardiac Assessment Last Done: 03/04/25 04:23
Discharge Date and Time
Discharge Date/Time: 03/04/25 11:33
Print Language: ARABIC
[2025-03-04 04:54] LABS: Hematocrit 37.2 % (37.0-47.0); Hemoglobin 12.3 g/dL (12.0-16.0); Mean Corp Hgb Conc. 33.1 g/dL (33.0-37.0); Mean Corpuscular Volume 87.5 fL (81.0-99.0); Platelet Count 246 10^3/uL (130-400); Red Cell Dist. Width 12.6 % (11.5-14.5)
[2025-03-04 05:12] LABS: ALT (SGPT) 35 U/L (0-35); AST (SGOT) 30 U/L (14-36); Albumin 3.9 g/dl (3.5-5.0); Alkaline Phosphatase 206 U/L (38-126); Blood Urea Nitrogen 18 mg/dl (7-17); Calcium 9.5 mg/dl (8.4-10.2); Carbon Dioxide 25 mmol/L (22-30); Chloride 103 mmol/L (98-107); Estimated Creatinine Clearance 55 ml/min; Glucose 86 mg/dl (70-99); Magnesium 2.2 mg/dl (1.6-2.3); Potassium 3.9 mmol/L (3.5-5.1); Sodium 134 mmol/L (135-145); Total Protein 7.0 g/dl (6.3-8.2); eGFR > 60.00
[2025-03-04 05:42] LABS: TSH 5.47 uIU/ml (0.47-4.68)
[2025-03-04 06:18] LABS: Troponin I 0.022 ng/ml
[2025-03-04 06:49] LABS: Nucleated Red Blood Cells % 0 %
--- NOTE | 2025-03-04 08:01 | CON.CAR ---
Addendum entered and electronically signed by Jefferson White MD 03/04/25 13:36:
I saw and examined the patient.
The Mold Sander's note was reviewed and I agree with the note.
Comment:
GEN: No distress, awake, Ox3
HEENT: supple, anicteric, mmm
LUNGS: CTA, no wheezes/rales
CV: Reg, S1/S2, 1/6 syst LSB, no gallop
ABD: soft, BS+, NT/ND
EXT: No edema Dressing intact
NEURO: Gross non-focal
SKIN: No rash
Plan:
74-year-old female well-known to our service with past medical history of paroxysmal atrial fibrillation, ventricular tachycardia status post cardiac arrest in the setting of Tikosyn, Cymbalta, and Mounjaro, permanent pacemaker 02/28/25 presents back
to the emergency room with chest pains and discomfort. The patient was recently discharged 2 days ago. She states that she will randomly get these episodes of a mild discomfort in her chest and her heart rate has been increased.
Cardiac troponins are negative. Echocardiogram performed today reveals a preserved ejection fraction with no pericardial effusion.
By pacemaker check today she was having episodes of rate drop which she was highly symptomatic from. Will discuss with electrophysiology and pacemaker rep to adjust her pacemaker to change the settings. I suspect this is causing her symptoms.
Once we adjust her pacemaker she will be stable for discharge and we will arrange outpatient follow-up. She remains in sinus rhythm and will continue Xarelto.
Addendum entered and electronically signed by Jessica Hill PA-C 03/04/25 10:47:
Discussed with device rep. Interventional rate of rate drop changed from 100 bpm to 90 bpm. Also decreased drop window from 1 minute to 30 seconds in duration from 2 minutes to 1 minute, which should hopefully help with patient's symptoms.
Original Note:
Consultation
Consultation Request
Date/Time Consultation Performed: 03/04/25
Requesting Provider: Wayne Muñoz PA-C
Performing Provider: Jessica Hill PA-C for Dr. Farfan
Reason for Consultation: CP, tachycardia
Medical History
-
Chief Complaint: CP, tachycardia
History of Present Illness:
Patient is a 74-year-old female with past medical history of hospitalization at [facility] 11/2024 with recurrent syncope felt to be secondary to polymorphic VT due to significantly prolonged QT/torsades from combination of Tikosyn, Cymbalta,
Mounjaro, electrolyte derangement. Involve medications were discontinued with no plan to restart. She underwent outpatient 14-day monitor completed 01/11/2025 which did not show any recurrence of ventricular arrhythmia. Underwent myocardial PET/CT
which was without evidence of ischemia. She then presented back to with episode of syncope which was noted to correlate to transient junctional rhythm/sinus bradycardia resulting in Medtronic DC PPM placement. She was discharged to home on
03/02/25. She presented back to ER this morning due to symptoms of intermittent central chest discomfort/tightness associated with increase in HR to 90-100s. She was concerned she was haveing afib (history of PVI 04/2024). She denies correlation with
exertion. She has not taken anything for pain. Denies pain at site of her ppm stating this pain is down lower. Cardiology consulted for evaluation.
PMH:
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
PAF status post pulsed field ablation 04/2024
Syncope associated with transient junctional rhythm s/p Medtronic DC PPM 02/28/25
Aortic and cerebrovascular atherosclerosis
GERD
Hypertension
Hypercholesterolemia
Type 2 diabetes with polyneuropathy
Depression
Sleep apnea with history of UVP
Pulmonary embolus DVT
Asthma
Morbid obesity
Migraines
Spinal stenosis
40 pound weight loss with tirzepatide
Past Medical History
Past Medical History: Arrhythmias (Paroxysmal atrial fibrillation status post pulsed field ablation April 2024, on dofetilide), CAD (Subclinical, coronary artery calcification, aortic calcification), GERD, HTN, Hypercholesterolemia, NIDDM,
Psychiatric (Depression) and Other (Mild obstructive sleep apnea with history of UVP, history of pulmonary embolus and DVT, history of asthma, diabetic polyneuropathy, morbid obesity, cerebrovascular atherosclerosis, migraines)
Past Surgical History: Other (Tonsillectomy, , D&C, multiple BLANCA's with prior L3-L4 and L4-L5 laminectomy/fusions, with rhizotomies, carpal tunnel's, right knee arthroscopy, UVP, spinal cord stimulator, hysterectomy with BSO)
Social History
Tobacco: Non-Smoker
Alcohol: None
Drug: None
Personal:
Living: With Family
Employment: Retired
Family History
Family History: Reviewed & Not Pertinent
Allergies / Home Medications
Allergy/AdvReac Type Severity Reaction Status Date / Time
amoxicillin Allergy Unknown Verified 12/23/24 23:20
cefuroxime (From Ceftin) Allergy Hives Verified 12/23/24 23:20
clindamycin Allergy irritates Verified 12/23/24 23:20
esophagus
erythromycin base Allergy stomch Verified 12/23/24 23:20
pain-tolerates
azithromycin
nitrofurantoin (From Allergy Unknown Verified 12/23/24 23:20
Macrobid)
Penicillins Allergy Anaphylaxis, Verified 12/23/24 23:20
throat
closes
pollen extracts Allergy stuffy nose Verified 12/23/24 23:20
simvastatin Allergy Rash Verified 12/23/24 23:20
Sulfa (Sulfonamide Allergy Hives - Verified 12/23/24 23:20
Antibiotics) Red rash
�Medication �Instructions �Recorded �Confirmed �Type
metformin 500 mg tablet 500 mg PO DAILY Diabetes 10/27/14 02/25/25 History
rivaroxaban 20 mg tablet (Xarelto) 20 mg PO QPM Blood clot 02/01/21 02/25/25 Rx
prevention/tx ##0
rosuvastatin 40 mg tablet 40 mg PO QPM High Cholesterol 08/20/22 02/25/25 History
ergocalciferol (vitamin D2) 1,250 1,250 mcg PO SA Supplement 09/29/23 02/25/25 History
mcg (50,000 unit) capsule (Vitamin
D2)
furosemide 40 mg tablet 40 mg PO DAILYPRN PRN Edema 09/29/23 02/25/25 History
methenamine hippurate 1 gram tablet 1 g PO BID Urinary Issue 09/29/23 02/25/25 History
gsbubeuwju-fmfxsgxgttxhe-hlzqwiuf 1 cap PO Q6HPRN PRN migraine 03/02/24 02/25/25 History
50 mg-300 mg-40 mg capsule
cyanocobalamin 2 mg-levomefolate 1 tab PO DAILY Supplement 03/02/24 02/25/25 History
darinel 1.13 mg-pyridoxine 25 mg
tablet (Folbic RF)
spironolactone 25 mg tablet 25 mg PO DAILY Fluid retention/BP 03/02/24 02/25/25 History
denosumab 60 mg/mL subcutaneous 60 mg SC [id number] Osteoporosis 05/21/24 02/25/25 History
syringe (Prolia)
atenolol 25 mg tablet 12.5 mg PO BID Heart 02/25/25 02/25/25 History
Disease/Condition
duloxetine 30 mg capsule,delayed 30 mg PO DAILY Mental 02/25/25 02/25/25 History
release Health/Anxiety
fluticasone furoate 50 50 mcg inhalation R DAILY sob 02/25/25 02/25/25 History
mcg/actuation blister powder for
inhalation (Arnuity Ellipta)
magnesium oxide 400 mg (241.3 mg 400 mg PO DAILY Supplement 02/25/25 02/25/25 History
magnesium) tablet
potassium chloride 10 mEq 10 meq PO DAILY Electrolyte 02/25/25 02/25/25 History
capsule,extended release Repletion
Review of Systems
-
History Source: Patient
All other systems: Negative unless noted
Physical Exam
Vital Signs
Temp Pulse Resp BP Pulse Ox
97.9 F 61 16 115/64 100
03/04/25 04:10 03/04/25 06:30 03/04/25 06:30 03/04/25 06:00 03/04/25 06:30
Lab Results
03/04/25 04:36
03/04/25 04:36
Troponin I 0.022 ng/ml 03/04/25 05:42
Physical Exam
General: No Apparent Distress and Comfortable
HEENT: Normocephalic, Anicteric and Moist Mucous Membranes
Respiratory: Clear and Non Labored Respirations
Cardiac: S1/S2 and Regular Rhythm
GI: Soft, Non Tender and Non Distended
Musculoskeletal: No Clubbing, No Cyanosis and No Edema
Skin: Warm, Dry and Other (pressure dressing and aquacel removed from L chest site - soft, no edema, NTTP, steri strips in place)
Neuro: AO x 3
Impression / Plan
-
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
Assessment:
Chest discomfort
Tachycardia/palpitations
Syncope secondary to polymorphic VT with QT prolongation on dofetilide, niltonuntravro 11/2024
PAF status post pulsed field ablation 04/2024
Syncope associated with transient junctional rhythm s/p Medtronic DC PPM 02/28/25
Aortic and cerebrovascular atherosclerosis
GERD
Hypertension
Hypercholesterolemia
Type 2 diabetes with polyneuropathy
Depression
Sleep apnea with history of UVP
Pulmonary embolus DVT
Asthma
Morbid obesity
Migraines
Spinal stenosis
40 pound weight loss with tirzepatide
ECHO 12/24/2024: EF 60%, mild MR, trace TR
Plan:
-Patient s/p Medtronic DC PPM 02/28/25 for syncope now presents back to ER due to intermittent episodes of CP followed by tachycardia where she states her heart rate goes up to 90-100s. She was concerned she was in afib.
-device interrogation via [employer] in ER today reveals no afib or VT/VF events and settings all appear ok. reviewed with device rep - episodes of tachycardia appear to correlate to rate drop response. may consider lowering her intervention rate
-EKG sinus janelle
-CXR reviewed by me shows leads which appear to be in appropriate position. awaiting official read.
-trop 0.022. repeat pending
-pressure dressing and aquacel removed from L chest site and looks stable, no edema, NTTP.
-hgb stable at 12.3
-last echo from 12/24/24 as above, will repeat
-d/w ER nursing
Data Reviewed
-
EKG: Tracing Personally Visualized and interpreted
Radiology: Image Personally Visualized and interpreted
Medical Tests (Nuc Med, Echo etc): Report Reviewed by me
Labs: Labs Reviewed by me
Old Records: Reviewed
[2025-03-04 09:15] LABS: Troponin I 0.022 ng/ml
--- NOTE | 2025-03-04 11:06 | W.PN.UPDATE ---
Update Note
Progress Note Update
After further discussion with device rep and EP, patient reprogrammed to AAI-DDD 70-130 and rate drop response was turned off as patient had episode of chest pressure associated with rate drop response function while device rep in room with patient.
Prelim echo result without significant effusion.
Patient okay for discharge from ER.
== END 2025-03-04 11:33 | disposition home or self-care (01) ==
LOC: EMR 04:07
PROVIDERS: Physician Assistant; EMERGENCY PHYSICIAN Student in an Organized Health Care Education/Training Program; FAMILY PHYSICIAN Family Medicine
DX: R07.9 Chest pain, unspecified (principal); E11.42 Type 2 diabetes mellitus with diabetic polyneuropathy; I25.10 Atherosclerotic heart disease of native coronary artery without angina pectoris; I48.0 Paroxysmal atrial fibrillation; I10 Essential (primary) hypertension; E78.00 Pure hypercholesterolemia, unspecified; G47.33 Obstructive sleep apnea (adult) (pediatric); E66.01 Morbid (severe) obesity due to excess calories; Z68.33 Body mass index [BMI] 33.0-33.9, adult; J45.909 Unspecified asthma, uncomplicated; K21.9 Gastro-esophageal reflux disease without esophagitis; K44.9 Diaphragmatic hernia without obstruction or gangrene; G43.909 Migraine, unspecified, not intractable, without status migrainosus; F41.0 Panic disorder [episodic paroxysmal anxiety]; F32.A Depression, unspecified; M35.3 Polymyalgia rheumatica; M79.7 Fibromyalgia; M48.00 Spinal stenosis, site unspecified; M81.0 Age-related osteoporosis without current pathological fracture; Z79.01 Long term (current) use of anticoagulants; Z79.84 Long term (current) use of oral hypoglycemic drugs; Z86.74 Personal history of sudden cardiac arrest; Z95.0 Presence of cardiac pacemaker; Z86.711 Personal history of pulmonary embolism; Z86.718 Personal history of other venous thrombosis and embolism; Z96.82 Presence of neurostimulator; Z82.49 Family history of ischemic heart disease and other diseases of the circulatory system; Z83.3 Family history of diabetes mellitus; Z83.49 Family history of other endocrine, nutritional and metabolic diseases; Z82.62 Family history of osteoporosis
CPT/HCPCS: 99284; 93288; 71046; 80053; 83735; 84443; 84484; 85025; 93005; 93308